=== PATIENT | male | born 1970 | race Caucasian/White ===

== ENCOUNTER 2017-02-08 17:31 | Inpatient (IN) ==
--- NOTE | 2017-02-08 20:05 | Internal Med History&Physical ---
<Diogo Bruce - Last Filed: 02/08/17 23:50> Date of Encounter: 02/08/17 Time of Encounter: 20:04 Assessment and Plan (1) Bacteremia due to methicillin resistant Staphylococcus aureus Current visit: Yes Status: Acute Blood cultures collected 01/29/17 are positive for MRSA Repeat blood cultures pending Echo ordered to r/o endocarditis Continue Vancomycin Patient will need extended course of IV antibiotics with either prolonged hospitalization vs PICC line placement (high abuse potential due to active IVDU) ID consulted (2) Osteomyelitis Current visit: Yes Status: Suspected Suspected Osteomyelitis ESR level > 130 and CRP 114 X-ray left foot reveals soft-tissue swelling without acute or focal bony abnormality. MRI left foot pending Continue Vancomycin Qualifiers: Osteomyelitis type: other acute Osteomyelitis location: foot Laterality: left Qualified Code(s): M86.172 - Other acute osteomyelitis, left ankle and foot (3) Cellulitis of left foot Current visit: No Status: Acute Patient has been on Keflex 500mg PO QID for MRSA cellulitis since 01/29/17 with minimal improvement Cellulitis vs Janeway lesion /septic emboli to LLE from possible endocarditis MRI pending May need I&D with deep wound cultures, NPO diet Contact precautions Continue Vancomycin Tylenol, Ibuprofen, and Morphine prn pain (4) Hepatitis C Current visit: Yes Status: Acute Continue to monitor Qualifiers: Viral hepatitis chronicity: chronic Hepatic coma status: without hepatic coma Qualified Code(s): B18.2 - Chronic viral hepatitis C (5) Tobacco dependence Current visit: Yes Status: Chronic Tobacco cessation discussed Nicotine patch ordered (6) DVT prophylaxis Current visit: Yes Status: Acute No anticoagulation due to possible need for surgery Internal Medicine - H&P: HPI Chief complaint: Left foot infection Admitted From: Home Plans for Post Hospital Care: Home History of present illness: Mr. Montenegro is a 46 year old male with a PMH of MRSA skin infections, Hepatitis C , IVDU, tobacco dependence, chronic low back pain with L4-L5 laminectomy November 2016, and anxiety disorder presented c/o left foot pain and increased redness despite antibiotic treatment. Patient reports initial foot injury on 02/03 after he kicked something with his left foot. He was evaluated at the [place] ED on 01/29/17 and was started on Keflex 500mg PO QID for cellulitis. Blood cultures were collected at that time which are positive for MRSA. Today pain severity is 5/10, radiates up his left leg, is not relieved by Tylenol, and associated with chills and inability to bear weight on his left foot. He has cats at home, works in [employer], and has a remote history of nail piercing his left foot after stepping on a nail in the . Patient denies fever, CP, palpitations, h/o endocarditis, SOB, abd pain, N/V/D/C, cat scratch, spider bites, HIV, left foot drainage, injecting IV drugs into left foot, or previous leg surgery or hardware. In the ED at [place], labs revealed ESR level > 130 and CRP 114. Case was discussed with their hospitalist/ Dr. Nair who indicated need for an MRI to r/o possible osteomyelitis. However, MRIs were only available on Fridays there and decision was made to transfer him to [facility] for orthopedic consultation and MRI. Past Med Surg Social Fam HX - Past Medical History Medical history: hepatitis (Hep C, chronic back pain), other (spinal stenosis) Psychiatric history: anxiety, panic disorder, PTSD - Past Surgical History Surgical History: orthopedic, other (L4-L5 laminectomy November 2016, skin abscess I&D LLQ) - Social History Smoking Status: Current every day smoker Packs per day: 1/2 Smokeless Tobacco Status: No Alcohol use: occasionally Drug use: opiates, marijuana, IV Drug Use Current living situation: Home - Independent, Home - Family History Mother Living Status: Cause of : Cancer Hx Family Cancer: Yes (Colon) Father Living Status: Cause of : Heart attack Hx Family Cardiac Disorders: Yes (Heart attack) Internal Medicine - H&P: Meds Cyclobenzaprine [Flexeril] 10 mg PO TID #21 tablet 01/26/17 [Rx] Meloxicam [Mobic] 7.5 mg PO DAILY #10 tablet 01/26/17 [Rx] Naproxen [Naprosyn] 500 mg PO BID PRN #20 tablet 01/27/17 [Rx] Cephalexin [Keflex] 500 mg PO QID #40 capsule 01/29/17 [Rx] 3 Allergy/AdvReac Type Severity Reaction Status Date / Time Amoxicillin Allergy Difficulty Verified 02/08/17 15:41 Breathing promethazine [From Phenergan] Allergy Agitated Verified 02/08/17 15:41 All Systems PM: A 10-system review of systems was performed and is negative for pertinent findings except as documented above in the HPI. - Constitutional Constitutional: chills, fatigue, no anorexia, no fever(s), no weight gain, no weight loss - EENT Eyes: no change in vision Nose, mouth and throat: no nasal congestion, no sinus pressure - Cardiovascular Cardiovascular ROS IM: no chest pain, no palpitations - Respiratory Respiratory: no cough, no dyspnea, no wheezing - Gastrointestinal Gastrointestinal: no abdominal pain, no diarrhea, no nausea, no vomiting - Genitourinary Genitourinary ROS male: no dysuria, no urinary frequency, no urinary urgency - Musculoskeletal Musculoskeletal ROS IM: arthralgias, back pain, joint swelling, limited range of motion, myalgias, numbness, no tingling - Integumentary Integumentary IM: erythema, new lesions, rash, no skin ulcer - Neurological Neurological ROS: abnormal gait, numbness, radicular pain, no tingling - Psychiatric Psychiatric: anxiety, no depression - Endocrine Endocrine IM: no polydipsia, no polyphagia, no polyuria - Constitutional Vitals: Temp Pulse Resp BP Pulse Ox 98.0 F 86 18 146/91 99 02/08/17 19:32 02/08/17 19:32 02/08/17 19:32 02/08/17 19:32 02/08/17 19:32 General appearance: Present: cooperative, mild distress, A&O X 3, answers questions appropriately - Head Head exam: Present: atraumatic, normal inspection, normocephalic - Eye Eye exam: Present: EOMI, PERRL - ENT ENT exam: Present: mucous membranes moist, normal oropharynx - Neck Neck exam general surgery: Present: normal inspection, supple. Absent: lymphadenopathy, tenderness - Respiratory Respiratory exam: Present: wheezes (mild expiratory wheeze). Absent: accessory muscle use, respiratory distress - Cardiovascular Cardiovascular exam: Absent: RRR, +S1, +S2 - GI/Abdominal GI/Abdominal exam: Present: normal bowel sounds. Absent: firm, no peritoneal signs - Extremities Exam Extremities exam: Present: normal capillary refill, pedal edema, tenderness, warm, radial pulses palpable and symmetrical. Absent: calf tenderness Additional comments: Left foot 10cm x 8cm area of erythema on plantar arch with palpable abscess and outer border marked with skin marker, 3cm x 2 cm erythema proximal to 3rd & 4th toe web space, edema, tenderness to ROM, copartments soft, no ulceration or drainage - Back Exam Back exam: Present: normal inspection. Absent: tenderness - Neurological Exam Neurological exam: Present: alert, oriented X3, no focal deficits. Absent: speech deficit - Psychiatric Psychiatric exam: Present: anxious, normal affect - Skin Additional comments: Left foot 10cm x 8cm area of erythema on plantar arch with palpable abscess and outer border marked with skin marker, 3cm x 2 cm erythema proximal to 3rd & 4th toe web space with possible osler node, edema, tenderness to ROM, compartments soft, no ulceration or drainage, no uncal hemorhage or Janeway lesions Internal Med - H&P Results - Labs Labs: Result diagrams: 02/08/17 16:20 02/08/17 16:20 Lab Results 02/08/17 02/08/17 02/08/17 Range/Units 16:20 16:20 16:20 WBC 6.4 (4.3-11.1) K/mcL RBC 4.34 (4.19-5.50) M/mcL Hgb 14.2 (12.9-16.9) g/dL Hct 39.7 (37.5-50.1) % MCV 91.5 (83.0-100.0) fL MCH 32.7 (28.0-33.3) pg MCHC 35.8 H (31.6-35.5) g/dL RDW 13.5 (11.5-14.5) % Plt Count 198 (140-400) K/mcL MPV 9.1 L (9.4-12.4) fL Immature Gran % 0.5 (0-4) % Seg Neutrophils % 72.3 % Lymphocytes % 17.2 % Monocytes % 9.0 % Eosinophils % 0.5 % Basophils % 0.5 % Neutrophils # 4.6 (1.6-8.9) K/mcL Lymphocytes # 1.1 (0.6-4.6) K/mcL Monocytes # 0.6 (0.0-1.3) K/mcL Eosinophils # 0.0 (0.0-0.6) K/mcL Basophils # 0.0 (0.0-0.2) K/mcL Sodium 134 L (136-145) mEq/L Potassium 3.9 (3.5-4.5) mEq/L Chloride 102 (98-109) mEq/L Carbon Dioxide 23 (19-29) mEq/L BUN 13 (8-26) mg/dL Creatinine 0.71 L (0.72-1.25) mg/dL Est GFR ( Amer) > 60 (> 60) Est GFR (Non-Af Amer) > 60 (> 60) BUN/Creatinine Ratio 18 (6-26) Glucose 122 H (70-99) mg/dL Calculated Osmolality 279 L (280-300) Lactic Acid 1.6 (0.5-2.2) mmol/L Calcium 9.3 (8.6-10.8) mg/dL Total Bilirubin 0.6 (0.2-1.2) mg/dL Direct Bilirubin 0.3 (0.0-0.5) mg/dL Indirect Bilirubin 0.3 (0.0-1.2) mg/dL AST 99 H (5-34) Units/L ALT 166 H (0-55) Units/L Alkaline Phosphatase 118 (38-126) Units/L Serum Total Protein 8.0 (6.0-8.3) g/dL Albumin 2.6 L (3.5-5.0) g/dL Globulin 5.4 H (2.4-3.5) g/dL Albumin/Globulin Ratio 0.5 L (1.1-2.2) - Impressions XR/XR foot 3V LT IMPRESSION: Soft-tissue swelling without acute or focal bony abnormality. D/ / Andria Sanchez Cha, MD / Andria Sanchez Cha, MD Interpreting Provider: Andria Sanchez Cha, MD <Maricel Rivas - Last Filed: 02/09/17 02:20> Date of Encounter: 02/09/17 Internal Medicine - H&P: HPI History of present illness: Mr. Montenegro is a 46 year old male All Systems PM: A 10-system review of systems was performed and is negative for pertinent findings except as documented above in the HPI. - Constitutional Vitals: Temp Pulse Resp BP Pulse Ox 98.2 F 108 19 145/88 99 02/08/17 23:29 02/08/17 23:29 02/08/17 23:29 02/08/17 23:29 02/08/17 23:29 Internal Med - H&P Results - Labs CBC & Chem 7: 02/09/17 00:26 02/09/17 00:26 Labs: Short CBC 02/09/17 Range/Units 00:26 WBC 6.1 (4.3-11.1) K/mcL Hgb 12.4 L D (12.9-16.9) g/dL Hct 36.6 L (37.5-50.1) % Plt Count 206 (140-400) K/mcL Neutrophils # 4.3 (1.6-8.9) K/mcL BMP 02/09/17 00:26 Sodium 136 Potassium 3.5 Chloride 104 Carbon Dioxide 24 BUN 12 Creatinine 0.78 Glucose 161 H Calcium 8.4 L - Attending Attestation I have seen and examined the patient independently. I have discussed with resident Dr. Bruce regarding the management plan. Agree with the documentation. Patient has left foot cellulitis, bacteremia, history of IV drug abuse. Continue vancomycin at this point. Need to rule out endocarditis and osteomyelitis
[2017-02-08] MEDS ORDERED: 0.9 % Sodium Chloride 1,000 ML IVC ONE (20:47)
[2017-02-08] MEDS ORDERED: Vancomycin (wt based) 1,000 MG VIAL IVPB SCH (21:00)
[2017-02-08] MEDS ORDERED: Naloxone 0.4 MG/ML INJ IVP PRN (21:03)
[2017-02-08] MEDS ORDERED: Acetaminophen 325 MG TABLET PO PRN (21:03)
[2017-02-08] MEDS ORDERED: Ondansetron 4 MG/2 ML VIAL IVP PRN (21:03)
[2017-02-08] MEDS: Nicotine 14 MG PATCH.TD24 TD SCH (21:44)
[2017-02-08] MEDS: *HR* Morphine 2 MG/ML SYRINGE IVP PRN (21:44)
[2017-02-08] MEDS ORDERED: Ipratropium/Albuterol Neb 3 ML IH PRN (21:59)
[2017-02-08] MEDS: Vancomycin 1,250 MG in D5% in Water 250 ML IVPB SCH (23:15)
[2017-02-08] MEDS: 0.9 % Sodium Chloride 1,000 ML IVC SCH (23:15)
[2017-02-09] MEDS: Ibuprofen 400 MG TABLET PO SCH ×4 (00:43→18:41)
[2017-02-09 00:52] LABS: Basophils % 0.3 %; Eosinophils # 0.1 K/mcL (0.0-0.6); Eosinophils % 1.3 %; Hematocrit 36.6 % (37.5-50.1); Hemoglobin 12.4 g/dL (12.9-16.9); Immature Granulocytes % 0.5 % (0-4); Lymphocytes # 1.3 K/mcL (0.6-4.6); Lymphocytes % 20.9 %; Mean Corpuscular HGB Conc 33.9 g/dL (31.6-35.5); Mean Corpuscular Hemoglobin 31.5 pg (28.0-33.3); Mean Corpuscular Volume 92.9 fL (83.0-100.0); Mean Platelet Volume 9.3 fL (9.4-12.4); Monocytes # 0.4 K/mcL (0.0-1.3); Neutrophils # 4.3 K/mcL (1.6-8.9); Platelet Count 206 K/mcL (140-400); Red Blood Count 3.94 M/mcL (4.19-5.50); Red Cell Distribution Width 13.3 % (11.5-14.5)
[2017-02-09 00:54] LABS: INR 1.3; Prothrombin Time 14.2 Seconds (9.4-12.1)
[2017-02-09 00:57] LABS: Activated Partial Thrombo Time 27.7 Seconds (26.0-36.0)
[2017-02-09 01:02] LABS: BUN/Creatinine Ratio 15 (6-26); Blood Urea Nitrogen 12 mg/dL (8-26); Calcium 8.4 mg/dL (8.6-10.8); Carbon Dioxide 24 mEq/L (19-29); Chloride 104 mEq/L (98-109); Glucose 161 mg/dL (70-99); Osmolality,Calculated 285 (280-300); Potassium 3.5 mEq/L (3.5-4.5); Sodium 136 mEq/L (136-145); eGFR For African Americans > 60 (> 60); eGFR For Non-African Americans > 60 (> 60)
[2017-02-09] MEDS: *HR* Morphine 2 MG/ML SYRINGE IVP PRN ×5 (03:03→23:07)
[2017-02-09] MEDS: Famotidine 20 MG/2 ML VIAL IVP SCH ×2 (06:21→18:41)
[2017-02-09] MEDS: *HR* Heparin 5,000 UNIT/ML VIAL SQ SCH ×2 (06:22→18:41)
[2017-02-09] MEDS: 0.9 % Sodium Chloride 1,000 ML IVC SCH (08:50)
[2017-02-09] MEDS: Nicotine 14 MG PATCH.TD24 TD SCH (09:02)
[2017-02-09] MEDS: Vancomycin 1,250 MG in D5% in Water 250 ML IVPB SCH ×2 (10:29→22:22)
--- NOTE | 2017-02-09 13:56 | Electrocardiograph Report ---
[address] [address] Test Date: 2017-02-09 Pat Name: Ignacio Montenegro Department: 114 Room: [facility] Gender: M Ekg Tech: [id number] : 1970 Requested By: Diogo Bruce Order Number: [id number] Reading MD: Magy Ahmadi Measurements Intervals [place] Rate: 89 P: 47 CO: 148 QRS: 58 QRSD: 93 T: 38 QT: 347 QTc: 394 Interpretive Statements SINUS RHYTHM NONSPECIFIC ST ABNORMALITIES Electronically Signed On 02-09-2017 13:54:12 EDT by Magy Ahmadi
--- NOTE | 2017-02-09 14:08 | Infectious Disease Consult ---
Date of Encounter: 02/09/17 Time of Encounter: 14:02 Assessment and Plan (1) Bacteremia due to methicillin resistant Staphylococcus aureus Status: Acute Assessment and plan: Causative organism: MRSA. Source unclear: IVDU vs. left foot cellulitis vs. recent laminectomy. Blood cultures drawn 01/29/17 were positive 1/2 sets for MRSA. Uncomplicated at this point. The patient has no indwelling hardware. He has one major and one minor Modified Snow's criteria. His left foot findings are concerning for possible Osler's node, but will await foot MRI to see if there is an underlying abscess to explain his symptoms. Repeat blood cultures drawn 02/08/17 are pending x 2 sets. TTE completed this morning is pending. If negative, the patient will need a [place] prior to discharge. Continue Vancomycin IV. Pharmacy to dose. Goal trough ~15. Duration of treatment depends on the clinical picture. Monitor renal function and for drug toxicity. (2) Left foot pain Status: Acute Assessment and plan: Etiology unclear: cellulitis/infectious etiology vs. Osler's node. MRI of the left foot pending. Podiatry consulted. Await recommendations. Continue pain management as outlined by the primary team. (3) IV drug user Status: Acute Assessment and plan: Reports last use of IV heroine about three weeks ago. Known Hep C positive. Check HIV status. Withdraw management per the primary team recommendations. (4) Hepatitis C Status: Acute Qualifiers: Viral hepatitis chronicity: chronic Hepatic coma status: without hepatic coma Qualified Code(s): B18.2 - Chronic viral hepatitis C (5) Tobacco dependence Status: Chronic Infectious Disease HPI - Data of Consult Patient: new to practice Consult date: 02/09/17 Requesting Physician: Venice Richardson MD Primary Care Provider: PCP NONE - Consult Narrative Reason for consult: MRSA bacteremia History of present illness: Mr. Montenegro is a 46 year old male past medical history hepatitis C, chronic back pain status post lumbar laminectomy in November 2016, anxiety disorder, panic disorder, PTSD. The patient was admitted the hospital February 08 for left foot cellulitis and MRSA bacteremia. We are consulted February 09 for further recommendations regarding MRSA bacteremia. She is a 46-year-old male with past medical history as stated above. The patient states for the past 2 weeks he has had left foot pain, redness, and swelling. He states his been seen multiple times by the emergency department at [facility] and was told there was nothing wrong. Most recently, the patient was seen on January 29 and was put on a ten-day course of oral Keflex. He states that the redness has improved somewhat, but he still continues to have pain and redness and swelling to the medial plantar aspect of the left foot. Arrival to the ER on the day of admission, the patient was afebrile, but was tachycardic. Laboratory studies revealed a normal white blood cell count with ESR greater than 130. Lactic acid is normal. AST and ALT are mildly elevated with a normal alkaline phosphatase. Urinalysis was obtained that was negative. Urine drug screen was positive for benzodiazepines. A left foot x-ray was completed that showed soft tissue swelling. It was noted that patient had blood cultures drawn back on January 29 that were +1 out of 2 sets for MRSA. The patient was sent to be transferred here for further evaluation. [place], the patient has remained afebrile and hemodynamically stable. Channel Marketing Coordinator been consulted and we are awaiting the recommendations. Repeat blood cultures have been obtained and are pending. The patient had a left foot MRI completed this morning and the radiologist reading is pending. Her seemed a one- time dose of IV Levaquin. He continues to receive IV vancomycin infusions. We' ve been asked to evaluate and make further recommendations. During my exam today, the patient endorses a history as stated above. AIDS that when he originally presented for this left foot pain on January, he had sustained a possible seizure and ended up taking the wall. He states he does not have a history of seizures and he is unsure what happened. He states he had been experiencing some fevers and flulike symptoms on that day. He hasn't felt well overall for the past couple of weeks. He denies any fevers or chills, but does report profusely sweating. He states he hasn't had much of an appetite. He complains of chronic headaches, neck pain, and back pain. He also reports the recurrence of a sebaceous cyst to his scalp. He does tell me that he has had and not to his posterior lateral neck intermittently for several years that seems to be back at this time. He denies any chest pain, shortness of breath, or cough. He denies any nausea, vomiting, diarrhea, constipation. He denies abdominal pain or urinary complaints. He complains of severe pain in the left foot that makes it difficult for him to ambulate pain in any of his other joints or extremities except as mentioned above. The patient lives at home with his girlfriend and roommate. He is not currently employed. The patient is a [employer] . He is admitted to using IV heroin 3 weeks ago to help with his chronic pain and reports that he has shared needles with others. CC: Venice Richardson MD Past Med Surg Social Fam HX - Past Medical History Attestation: Yes The following information was validated with the patient. Source: patient, old records reviewed, nursing notes reviewed Medical history: hepatitis (Hep C, chronic back pain), other (spinal stenosis) Psychiatric history: anxiety, panic disorder, PTSD - Past Surgical History Surgical History: orthopedic, other (L4-L5 laminectomy November 2016, skin abscess I&D LLQ) - Social History Smoking Status: Current every day smoker Packs per day: 1/2 Smokeless Tobacco Status: No Alcohol use: occasionally Drug use: opiates, marijuana, IV Drug Use (IV heroine use 3 weeks ago) Occupational status: unemployed Current living situation: Home - Independent Activity Level: Independent ambulation Recent Out of Country Travel Within the Last 8 Weeks: No Exposure or Possible Exposure to Illness During Travel: No - Family History Mother Living Status: Cause of : Cancer Hx Family Cancer: Yes (Colon) Father Living Status: Cause of : Heart attack Hx Family Cardiac Disorders: Yes (Heart attack) Infectious Disease-CN:Meds Cyclobenzaprine [Flexeril] 10 mg PO TID #21 tablet 01/26/17 [Rx] Meloxicam [Mobic] 7.5 mg PO DAILY #10 tablet 01/26/17 [Rx] Naproxen [Naprosyn] 500 mg PO BID PRN #20 tablet 01/27/17 [Rx] 3 Allergy/AdvReac Type Severity Reaction Status Date / Time Amoxicillin Allergy Difficulty Verified 02/08/17 15:41 Breathing promethazine [From Phenergan] Allergy Agitated Verified 02/08/17 15:41 All systems: reviewed and no additional remarkable complaints except as stated Exam - Constitutional Vitals: Temp Pulse Resp BP Pulse Ox 97.6 F 77 15 127/83 97 02/09/17 06:49 02/09/17 06:49 02/09/17 06:49 02/09/17 06:49 02/09/17 06:49 General appearance: average body habitus, cooperative, no acute distress - Head Head exam: Present: atraumatic, normal inspection, normocephalic Additional comments: Sebaceous cyst noted to the occipital region, non-fluctuant, non-tender. No erythema or drainage noted. - Eye Eye exam: Present: EOMI, normal appearance, PERRL Pupils: Present: normal accommodation Additional comments: No subconjunctival hemorrhage noted. - ENT ENT exam: Present: mucous membranes moist - Neck Neck exam: Present: normal inspection - Respiratory Respiratory exam: Present: CTAB. Absent: rales, respiratory distress, rhonchi, wheezes - Cardiovascular Cardiovascular exam: Present: RRR, +S1, +S2 - GI/Abdominal GI/Abdominal exam: Present: normal bowel sounds, soft. Absent: distended, tenderness - Extremities Exam Extremities exam: Present: pedal edema (left foot, 1+, non-pitting), tenderness (Left foot) - Expanded Lower Extremity Exam 1 - Erythematous, edematous, tender - Back Exam Back exam: Present: normal inspection, vertebral tenderness (Lumbar spine). Absent: paraspinal tenderness - Neurological Exam Neurological exam: Present: alert, oriented X3, no focal deficits - Psychiatric Psychiatric exam: Present: normal affect, normal mood - Skin Skin exam: Present: dry, intact, normal color, warm Additional comments: Left foot findings concerning for Osler's node. Infectious Disease CN: Results - Labs CBC & Chem 7: 02/09/17 00:26 02/09/17 00:26 Cultures: 01/29/17 - Blood culture positive 1/2 MRSA Consult Discharge Plan - Plan Referrals: NONE,PCP [Primary Care Provider] -
--- NOTE | 2017-02-09 16:37 | Internal Med Progress Note ---
Date of Encounter: 02/09/17 Time of Encounter: 14:30 - Assessment and plan (1) Bacteremia due to methicillin resistant Staphylococcus aureus Current Visit: Yes Status: Acute Assessment and plan: One out of 2 blood cultures drawn on January 29 grew MRSA. Patient has history of IV drug abuse with recent use 2-3 weeks ago. Likely source IV drug use. Continue IV vancomycin. ID consult. Check 2D Echocardiogram. (2) Cellulitis Current Visit: Yes Status: Acute Assessment and plan: Left plantar foot tenderness and edema. No open wounds or skin breakdown. One out of 2 blood cultures drawn on January 29 grew MRSA. 2 sets of blood cultures from February 08 pending. Continue IV vancomycin. Podiatry consult for possible incision and drainage. Check left foot MRI to rule out osteomyelitis. Qualifiers: Site of cellulitis: extremity Site of cellulitis of extremity: lower extremity Laterality: left Qualified Code(s): L03.116 - Cellulitis of left lower limb (3) Hepatitis C Current Visit: Yes Status: Chronic Qualifiers: Viral hepatitis chronicity: chronic Hepatic coma status: without hepatic coma Qualified Code(s): B18.2 - Chronic viral hepatitis C (4) Tobacco dependence Current Visit: Yes Status: Chronic Assessment and plan: Nicotine transdermal patch PRN. (5) IV drug user Current Visit: Yes Status: Chronic Assessment and plan: Monitor for withdrawal. Cautious use of IV opiates; PRN Oxycodone and NSAIDs for pain control; Patient will need placement if requires IV antibiotics. - Subjective Interval history: Reports left heel/foot pain. No fever/chills, dyspnea, nausea/vomiting. - Constitutional Vitals: Temp Pulse Resp BP Pulse Ox 97.6 F 77 15 127/83 97 02/09/17 06:49 02/09/17 06:49 02/09/17 06:49 02/09/17 06:49 02/09/17 06:49 General appearance: Present: cooperative, A&O X 3, answers questions appropriately - Respiratory Respiratory exam: Present: CTAB. Absent: accessory muscle use, rales, rhonchi, wheezes - Cardiovascular Cardiovascular exam: Present: RRR, +S1, +S2. Absent: diastolic murmur, gallop, rubs, systolic murmur - GI/Abdominal GI/Abdominal exam: Present: normal bowel sounds, soft, no peritoneal signs. Absent: distended, tenderness - Extremities Exam Extremities exam: Present: full ROM, warm, radial pulses palpable and symmetrical. Absent: calf tenderness, cyanotic, pedal edema Additional comments: Left foot- distal plantar surface with dusky tender edema extending over the ball of forefoot; no open ulcers; - Neurological Exam Neurological exam: Present: CN II-XII intact, oriented X3, no focal deficits. Absent: pronater drift, facial droop, speech deficit Internal Medicine: Result - Labs CBC & Chem 7: 02/09/17 00:26 02/09/17 00:26 Labs: Short CBC 02/09/17 Range/Units 00:26 WBC 6.1 (4.3-11.1) K/mcL Hgb 12.4 L D (12.9-16.9) g/dL Hct 36.6 L (37.5-50.1) % Plt Count 206 (140-400) K/mcL Neutrophils # 4.3 (1.6-8.9) K/mcL BMP 02/09/17 00:26 Sodium 136 Potassium 3.5 Chloride 104 Carbon Dioxide 24 BUN 12 Creatinine 0.78 Glucose 161 H Calcium 8.4 L - ABG Interpretation ABG results: PT/INR, D-dimer PT 14.2 Seconds (9.4-12.1) H 02/09/17 00:26 - Impressions Impressions Foot MRI 02/08/17 21:06 IMPRESSION: 1. Extensive, diffuse soft tissue edema present, along with soft tissue enhancement following gadolinium administration, consistent with the history of cellulitis. 2. Intense myositis with severe tenosynovitis involving the flexor digitorum brevis and quadratus plantae. Tenosynovitis extends for approximately 14 cm, to the level of the metatarsal heads. Infectious tenosynovitis with intramuscular abscess of the flexor digitorum brevis/quadratus plantae is suspected in this clinical setting. 3. Severe tenosynovitis of the peroneus longus and peroneus brevis. Cannot exclude infectious tenosynovitis. Short segment longitudinal split tear present involving the juxta malleolar segment of the peroneus brevis. 4. Focal tenosynovitis involving the 3rd extensor tendon complex at the level of the 3rd proximal phalanx. 5. Nonspecific faint marrow edema involving the 4th and 5th metatarsal bases, the cuboid, and the calcaneus. The pattern is not suggestive of osteomyelitis. Hyperemia or evolving stress injury is considered more likely. D/ / 02/09/2017 10:45:53 Diogo Mckeon MD / angie Interpreting Provider: Diogo Mckeon MD Echocardiogram 02/09/17 21:05 Impressions: LVEF 60-65%. Normal left ventricular diastolic function. Normal right ventricular structure and function. No significant valvular dysfunction. No pulmonary hypertension. No identifiable vegetation on this study. Left Ventricular Wall Motion: Rest Echo Findings All wall segments showed normal motion. Findings: Study Quality * Technically adequate exam. ECG Findings * Normal sinus rhythm. Left Ventricle * LVEF 60-65%. * Normal LV chamber size, wall thickness and function. * Normal left ventricular diastolic function. Right Ventricle * Normal right ventricular structure and function. Left Atrium * Normal left atrial size. Right Atrium * Normal right atrial size. Aortic Valve * No aortic regurgitation. * Trileaflet aortic valve. * Normal aortic valve structure. * No aortic stenosis. Mitral Valve * Normal mitral valve structure. * No mitral regurgitation. * No mitral stenosis. Tricuspid Valve * Normal tricuspid valve structure. * Estimated RA pressure is 3 mmHg. * Estimated RVSP is 17 mmHg. * No pulmonary hypertension. Pulmonic Valve * Pulmonic valve is not well visualized. * No pulmonic stenosis. * No pulmonic regurgitation. Pulmonary Artery * Pulmonary artery not well visualized. Aorta * Normally sized aortic root. Pericardium * There is no pericardial effusion present. Interatrial Septum * No evidence of PFO by color Doppler. IVC * The IVC is not dilated. Consult Discharge Plan - Plan Referrals: NONE,PCP [Primary Care Provider] -
--- NOTE | 2017-02-09 19:24 | Anesthesia Evaluation PreOp ---
Date of Encounter: 02/09/17 Time of Encounter: 19:21 - Past History Planned Operation: I&D Left Foot Cardiac History: Denies any Significant Hx Pulmonary History: Smoker, Pack/yr (1/2 ppd) CARD FIXER History: Other ( anxiety, panic disorder, PTSD, Spinal stenosis) Other Medical History: Hepatic (Hep C), Other (Osteomyolitis, Cellulitis Left Foot,) Anesthesia History: No Prior Anesthetic Complications, Past Anesthesia ( orthopedic, other (L4-L5 laminectomy November 2016, skin abscess I&D LLQ)) Alcohol Use: occasionally Drug use: opiates, marijuana, IV Drug Use (IV heroine use 3 weeks ago) Medications and Allergies Cyclobenzaprine [Flexeril] 10 mg PO TID #21 tablet 01/26/17 [Rx] Meloxicam [Mobic] 7.5 mg PO DAILY #10 tablet 01/26/17 [Rx] Naproxen [Naprosyn] 500 mg PO BID PRN #20 tablet 01/27/17 [Rx] 3 Allergy/AdvReac Type Severity Reaction Status Date / Time Amoxicillin Allergy Difficulty Verified 02/08/17 15:41 Breathing promethazine [From Phenergan] Allergy Agitated Verified 02/08/17 15:41 - Meds/Allergy Pre-op Review Medications Reviewed: Yes Allergies Reviewed: Yes Beta Blockers on Current Med List: No Anesthesia Results - Labs 02/09/17 00:26 02/09/17 00:26 Echocardiogram Name: Ignacio Montenegro Date of Study: 02/09/2017 Date: 1970 Ht: 72.0 EV/EV echocardiogram Impressions: LVEF 60-65%. Normal left ventricular diastolic function. Normal right ventricular structure and function. No significant valvular dysfunction. No pulmonary hypertension. No identifiable vegetation on this study. Anesthesia Exam O2 Sat Height 1.83 m Weight 82.8 kg O2 Sat by Pulse Oximetry 97 O2 Sat by Pulse Oximetry 97 O2 Sat by Pulse Oximetry 100 O2 Sat by Pulse Oximetry 99 O2 Sat by Pulse Oximetry 99 Vital Signs Temp Pulse Resp BP Pulse Ox 98.0 F 86 18 146/91 99 02/08/17 19:32 02/08/17 19:32 02/08/17 19:32 02/08/17 19:32 02/08/17 19:32 Vital Signs/O2 Sat, Most Current Temp Pulse Resp BP Pulse Ox 97.5 F L 77 18 120/77 97 02/09/17 19:04 02/09/17 19:04 02/09/17 19:04 02/09/17 19:04 02/09/17 19:04 Height: 6' Weight: 182# - HEENT Pupil (Motor): Pupils equal, EOMI Mallampati: II Teeth: Normal Oral Opening: Greater than 3 - CARD FIXER LOC: Oriented CARD FIXER Motor: Normal RUE, Normal LUE, Normal RLE, Normal LLE, Normal Face CARD FIXER Sensory: Normal: RUE, LUE, RLE, LLE, Face - Cardiac Rhythm: Regular Murmur: None JVD: No Carotid Bruit: No - Pulmonary Breath Sounds: bilateral Clear Respiratory Effort: Symmetrical Anesthesia Assess/Plan ASA Score: 3 Modified Keerthi Scale for Level of Consciousness: Cooperative, oriented, and tranquil Anesthetic Plan: General Autologous Blood: Yes Monitoring Plan: Standard Monitors Recovery Plan: PACU
[2017-02-09] MEDS: *HR* OxyCODONE/APAP 5/325 TABLET PO PRN (20:04)
[2017-02-09] MEDS ORDERED: 0.9 % Sodium Chloride 1,000 ML IVC SCH (20:30)
[2017-02-10] MEDS: Ibuprofen 400 MG TABLET PO SCH ×4 (00:10→23:55)
[2017-02-10] MEDS: *HR* OxyCODONE/APAP 5/325 TABLET PO PRN ×3 (03:35→20:27)
[2017-02-10] MEDS: *HR* Morphine 2 MG/ML SYRINGE IVP PRN ×4 (05:16→22:04)
[2017-02-10] MEDS: *HR* Heparin 5,000 UNIT/ML VIAL SQ SCH ×2 (05:16→16:45)
[2017-02-10] MEDS: Famotidine 20 MG/2 ML VIAL IVP SCH ×2 (05:17→16:45)
[2017-02-10] MEDS: Nicotine 14 MG PATCH.TD24 TD SCH (09:13)
[2017-02-10 10:20] LABS: Basophils % 0.8 %; Eosinophils # 0.1 K/mcL (0.0-0.6); Eosinophils % 1.9 %; Hematocrit 36.3 % (37.5-50.1); Hemoglobin 12.4 g/dL (12.9-16.9); Immature Granulocytes % 0.5 % (0-4); Lymphocytes # 1.3 K/mcL (0.6-4.6); Lymphocytes % 33.6 %; Mean Corpuscular HGB Conc 34.2 g/dL (31.6-35.5); Mean Corpuscular Hemoglobin 32.4 pg (28.0-33.3); Mean Corpuscular Volume 94.8 fL (83.0-100.0); Mean Platelet Volume 9.4 fL (9.4-12.4); Monocytes # 0.3 K/mcL (0.0-1.3); Monocytes % 7.1 %; Neutrophils # 2.1 K/mcL (1.6-8.9); Platelet Count 193 K/mcL (140-400); Red Blood Count 3.83 M/mcL (4.19-5.50); Red Cell Distribution Width 13.7 % (11.5-14.5); Segmented Neutrophils % 56.1 %
[2017-02-10 10:33] LABS: BUN/Creatinine Ratio 11 (6-26); Blood Urea Nitrogen 8 mg/dL (8-26); Carbon Dioxide 28 mEq/L (19-29); Chloride 108 mEq/L (98-109); Glucose 87 mg/dL (70-99); Osmolality,Calculated 288 (280-300); Potassium 4.2 mEq/L (3.5-4.5); Sodium 140 mEq/L (136-145); eGFR For African Americans > 60 (> 60); eGFR For Non-African Americans > 60 (> 60)
[2017-02-10] MEDS ORDERED: Bupivacaine/Clonidine Syringe 1 EACH SYRINGE ONE (11:46)
[2017-02-10] MEDS ORDERED: *HR* FentaNYL (PF) 100 MCG/2 ML VIAL ONE ×3 (11:53→13:05)
[2017-02-10] MEDS ORDERED: *HR* Midazolam HCl 2 MG/2 ML VIAL ONE (11:54)
[2017-02-10] MEDS ORDERED: *HR* Propofol 200 MG/20 ML VIAL IVP ONE (11:54)
[2017-02-10] MEDS ORDERED: Lidocaine -MPF 2% 2 ML VIAL ONE (11:55)
[2017-02-10] MEDS ORDERED: *HR* Succinylcholine 200 MG/10 ML VIAL IVP ONE (11:56)
[2017-02-10] MEDS ORDERED: *HR* Rocuronium Bromide 50 MG/5 ML VIAL ONE (12:12)
[2017-02-10] MEDS ORDERED: Lacri-Lube 3.5 GM TUBE ONE (12:24)
[2017-02-10] MEDS ORDERED: Ondansetron 4 MG/2 ML VIAL IVP ONE ×2 (12:40→14:53)
[2017-02-10] MEDS ORDERED: *HR* HYDROmorphone 2 MG/ML SYRINGE ONE (13:26)
[2017-02-10] MEDS ORDERED: *HR* HYDROmorphone (PF) 1 MG/ML SYRINGE ONE ×2 (13:37→13:53)
--- NOTE | 2017-02-10 13:40 | Orthopedic Operative Note ---
Date of procedure: 02/10/17 Pre-op diagnosis: Abscess left foot Post-op diagnosis: same Procedure: 02/10/17 13:33 #1: Incision and drainage and debridement multiple areas left foot #2 placement of wound VAC Implants: None Complications: None Anesthesia: GETA Local Anesthetics: 0.25% Sensorcaine HCL SubQ (cc) Surgeon: Martin Shields Estimated blood loss (cc): 20 Tourniquet Time (Minutes): 33 Specimen: Cultures left foot Condition: stable Disposition: PACU Procedure in Detail: 02/10/17 13:34 Detail summary of procedure: Patient brought to the surgical suite. A signed and procedure performed. Patient was then transferred to the surgical table and positioned properly safely securely. Left foot elevated on a foam block. Patient underwent smooth induction of general endotracheal anesthesia achieved without difficulty. Medial aspect of the left ankle was prepped with alcohol 3 times the posterior tibial nerve block carried out without difficulty. A complete roll of cast padding placed above the malleolar line followed by an application of an ankle tourniquet. Left foot prepped and draped in usual sterile manner. Surgical timeout taken. A large fluctuant mass was noted in the medial aspect of the left foot along the medial longitudinal arch approximately 6 cm in diameter. MRI confirmed infectious tenosynovitis involving the flexor brevis muscle belly as well as the quadratus plantae and the associated tendons including the flexor tendons into the plantar aspect of the distal foot at the level just proximal to the MTPJ #3. The incision began approximately 12 cm, beginning in the medial aspect of the plantar medial arch and brought distally laterally and then toward the plantar aspect of the third MTP. Immediate purulent drainage was expressed. It was then cultured aerobic and anaerobic. Sharp dissection was continued down to the plantar fascia. Purulent drainage/pus was noted to emanate from beneath the plantar fascia. The plantar fascia was then incised from distal to proximal exposing the central space where clot/ seropurulent drainage was discovered and drained.. Fortunately the muscle belly of the flexor hallucis as well as the flexor brevis was found to be intact without evidence of necrosis. Fortunately the tendons were also intact involving the flexor digitorum longus and brevis. The space/abscess was noted to progress proximally 6 cm and distally 6 cm from the center of the wound. The abscess was noted to be beneath the plantar fascia. After aggressive irrigation with a surgilav irrigation systemand a ultrasonic Misonix debrider was then used to debride the wound completely from distal to proximal and medial, lateral. The tourniquet was released and immediate hyperemic response was noted. Hemostasis was achieved with judicious use of a Bovie. The wound was thoroughly irrigated again with the bulb syringe. The foot and leg were then elevated and tourniquet reinflated. The wound was then again irrigated thoroughly with saline. Skin sutures were placed proximally 5 and 4 distally. A wound VAC was then placed beneath the plantar fascia proximally and distally and found to function properly once employed. Tourniquet was released and immediate hyperemic response was noted to all toes. Prior to application of the wound VAC hemostasis was achieved. Estimated blood loss less than 20 mL complications encountered none patient was then extubated and sent to PACU in good condition with vital signs stable. 02/15/17 08:36
[2017-02-10] MEDS: *HR* HYDROmorphone (PF) 1 MG/ML SYRINGE IVP PRN ×3 (13:45→13:55)
[2017-02-10] MEDS ORDERED: Vancomycin 1,750 MG in D5% in Water 500 ML IVPB SCH (14:00)
[2017-02-10] MEDS ORDERED: *HR* Labetalol 20 MG/4 ML SYRINGE IVP ONE (14:08)
--- NOTE | 2017-02-10 14:41 | Anesthesia Evaluation Post Op ---
Date of Encounter: 02/10/17 Time of Encounter: 14:39 - Vital Signs Vital Signs: BP 130/80, HR 76, SpO2 100, rr 16, T 98.0 - Lungs Lungs: Clear Ascult./Percussion - Airway Airway: Non-obstructed - Cardiovascular Regular Rate - Mental Status Mental Status: Alert & Oriented, Answers Appropriately - Pain Pain Scale: 0 Pain Scale used: Numeric (1 - 10) - Nausea Vomiting Nausea Vomiting: Not Present - Hydration Hydration: Tolerates oral liquids - Discharge PostOp Status: Transfer Patient to floor
[2017-02-10] MEDS ORDERED: Naloxone 0.4 MG/ML INJ IVP PRN (14:53)
[2017-02-10] MEDS ORDERED: Acetaminophen 325 MG TABLET PO PRN (14:53)
[2017-02-10] MEDS ORDERED: *HR* HYDROmorphone (PF) 1 MG/ML SYRINGE IVP PRN (14:53)
[2017-02-10] MEDS ORDERED: Ipratropium/Albuterol Neb 3 ML IH PRN (14:53)
[2017-02-10] MEDS ORDERED: Ondansetron 4 MG/2 ML VIAL IVP PRN (14:53)
--- NOTE | 2017-02-10 16:04 | Infectious Disease Progress No ---
Date of Encounter: 02/10/17 Time of Encounter: 16:02 - Assessment and Plan (1) Bacteremia due to methicillin resistant Staphylococcus aureus Current Visit: Yes Status: Acute Causative organism: MRSA. Source unclear: IVDU vs. left foot cellulitis vs. recent laminectomy. Blood cultures drawn 01/29/17 were positive 1/2 sets for MRSA. Uncomplicated at this point. The patient has no indwelling hardware. He has one major and one minor Modified Snow's criteria. Repeat blood cultures drawn 02/08/17 are NGTD x 2 sets. TTE completed 02/09/17 is negative for valvular vegetations. The patient will need a NE[place] prior to discharge. Continue Vancomycin IV. Pharmacy to dose. Goal trough ~15. Duration of treatment depends on the clinical picture. Monitor renal function and for drug toxicity. (2) Foot abscess, left Current Visit: Yes Status: Acute Location: Left medial foot. Causative organism unclear, but likely MRSA given blood culture results. MRI of the left foot showed extensive diffuse soft tissue edema consistent with cellulitis. Intense myositis with severe tenosynovitis in multiple areas were noted. Additionally, there were findings concerning for abscess as well. Podiatry was consulted. States post left foot I & D 02/10/[address] Shields. Operative report reviewed. Extensive infection noted, but no evidence of bone involvement. The pus did penetrate the plantar fascia. Continue Vancomycin IV. Pharmacy to dose. Goal trough ~15. Duration of treatment depends on the clinical picture, but likely 4 weeks of IV antibiotics. marketing services vice president to assist with discharge planning. Recommend ECF placement with patient's history of IVDU. (3) Left foot pain Current Visit: Yes Status: Acute Secondary to left foot abscess. Status post I & D 02/10/[address] Shields. Improved post-operatively. Pain management per the primary and podiatry teams. (4) IV drug user Current Visit: Yes Status: Chronic Reports last use of IV heroine about three weeks ago. Known Hep C positive. HIV negative. Withdraw management per the primary team recommendations. (5) Hepatitis C Current Visit: Yes Status: Chronic Qualifiers: Viral hepatitis chronicity: chronic Hepatic coma status: without hepatic coma Qualified Code(s): B18.2 - Chronic viral hepatitis C (6) Tobacco dependence Current Visit: Yes Status: Chronic - Subjective Interval history: Patient seen and examined. Status post left foot I & D this afternoon. States left foot pain is improved. Denies fevers, chills, rigors. Denies headache or neck pain. Denies chest pain, shortness of breath, or cough. Denies nausea, vomiting, diarrhea, constipation, or abdominal pain. Denies urinary complaints and states his appetite is good. Denies oral thrush or new skin lesions. Infect Dis PN-Objective Data - Labs CBC & Chem 7: 02/10/17 09:28 02/10/17 09:28 Labs: Laboratory Results - last 24 hr 02/09/17 02/10/17 02/10/17 17:27 09:28 09:28 WBC 3.8 L RBC 3.83 L Hgb 12.4 L Hct 36.3 L MCV 94.8 MCH 32.4 MCHC 34.2 RDW 13.7 Plt Count 193 MPV 9.4 Immature Gran % 0.5 Seg Neutrophils % 56.1 Lymphocytes % 33.6 Monocytes % 7.1 Eosinophils % 1.9 Basophils % 0.8 Neutrophils # 2.1 Lymphocytes # 1.3 Monocytes # 0.3 Eosinophils # 0.1 Basophils # 0.0 Sodium Potassium Chloride Carbon Dioxide BUN Creatinine Est GFR ( Amer) Est GFR (Non-Af Amer) BUN/Creatinine Ratio Glucose Calculated Osmolality Calcium Vancomycin Trough 9.4 L HIV Ag/Ab Combo Qual Nonreactive 02/10/17 09:28 WBC RBC Hgb Hct MCV MCH MCHC RDW Plt Count MPV Immature Gran % Seg Neutrophils % Lymphocytes % Monocytes % Eosinophils % Basophils % Neutrophils # Lymphocytes # Monocytes # Eosinophils # Basophils # Sodium 140 Potassium 4.2 Chloride 108 Carbon Dioxide 28 BUN 8 Creatinine 0.71 L Est GFR ( Amer) > 60 Est GFR (Non-Af Amer) > 60 BUN/Creatinine Ratio 11 Glucose 87 Calculated Osmolality 288 Calcium 9.0 Vancomycin Trough HIV Ag/Ab Combo Qual Cultures: Cultures 02/08/17 22:57 Blood Culture - Preliminary Peripheral Venipuncture No growth. 02/08/17 21:51 Blood Culture - Preliminary Peripheral Venipuncture No growth. Serology 02/09/17 Range/Units 17:27 HIV Ag/Ab Combo Qual Nonreactive (Nonreactive) - Impressions Impressions Foot MRI 02/08/17 21:06 IMPRESSION: 1. Extensive, diffuse soft tissue edema present, along with soft tissue enhancement following gadolinium administration, consistent with the history of cellulitis. 2. Intense myositis with severe tenosynovitis involving the flexor digitorum brevis and quadratus plantae. Tenosynovitis extends for approximately 14 cm, to the level of the metatarsal heads. Infectious tenosynovitis with intramuscular abscess of the flexor digitorum brevis/quadratus plantae is suspected in this clinical setting. 3. Severe tenosynovitis of the peroneus longus and peroneus brevis. Cannot exclude infectious tenosynovitis. Short segment longitudinal split tear present involving the juxta malleolar segment of the peroneus brevis. 4. Focal tenosynovitis involving the 3rd extensor tendon complex at the level of the 3rd proximal phalanx. 5. Nonspecific faint marrow edema involving the 4th and 5th metatarsal bases, the cuboid, and the calcaneus. The pattern is not suggestive of osteomyelitis. Hyperemia or evolving stress injury is considered more likely. D/ / 02/09/2017 10:45:53 Diogo Mckeon MD / angie Interpreting Provider: Diogo Mckeon MD Exam - Constitutional Vitals: Temp Pulse Resp BP Pulse Ox 97.5 F L 88 14 134/85 97 02/10/17 15:38 02/10/17 15:38 02/10/17 15:38 02/10/17 15:38 02/10/17 15:38 General appearance: average body habitus, cooperative, no acute distress - Head Head exam: Present: atraumatic, normal inspection, normocephalic - Eye Eye exam: Present: EOMI, normal appearance, PERRL Pupils: Present: normal accommodation Additional comments: No subconjunctival hemorrhage noted. - ENT ENT exam: Present: mucous membranes moist - Neck Neck exam: Present: normal inspection - Respiratory Respiratory exam: Present: CTAB. Absent: rales, respiratory distress, rhonchi, wheezes - Cardiovascular Cardiovascular exam: Present: RRR, +S1, +S2 - GI/Abdominal GI/Abdominal exam: Present: normal bowel sounds, soft. Absent: distended, tenderness - Extremities Exam Extremities exam: Present: tenderness (left foot). Absent: pedal edema Additional comments: Left foot post-op dressing with wound VAC noted. - Neurological Exam Neurological exam: Present: alert, oriented X3, no focal deficits - Psychiatric Psychiatric exam: Present: normal affect, normal mood - Skin Skin exam: Present: dry, intact, normal color, warm Additional comments: No endocarditis stigmata noted. - VTE Documentation of Mechanical Device: Intermittent pneumatic compression device Consult Discharge Plan - Plan Referrals: NONE,PCP [Primary Care Provider] -
[2017-02-10] MEDS: Vancomycin 1,750 MG in D5% in Water 500 ML IVPB SCH (17:15)
--- NOTE | 2017-02-10 23:45 | Internal Med Progress Note ---
Date of Encounter: 02/10/17 Time of Encounter: 15:52 - Assessment and plan (1) Cellulitis Current Visit: Yes Status: Acute Assessment and plan: Left plantar foot tenderness and edema. One out of 2 blood cultures drawn on January 29 grew MRSA. 2 sets of blood cultures from February 08 pending. 02/10/17 13:33: Incision and drainage and debridement of left foot, wound vac placement. Tolerated procedure without issue. Continue IV vancomycin. Qualifiers: Site of cellulitis: extremity Site of cellulitis of extremity: lower extremity Laterality: left Qualified Code(s): L03.116 - Cellulitis of left lower limb (2) Foot abscess, left Current Visit: Yes Status: Acute Assessment and plan: S/P I&D today, cont Vanc (3) DVT prophylaxis Current Visit: Yes Status: Acute (4) Hepatitis C Current Visit: Yes Status: Chronic Qualifiers: Viral hepatitis chronicity: chronic Hepatic coma status: without hepatic coma Qualified Code(s): B18.2 - Chronic viral hepatitis C (5) IV drug user Current Visit: Yes Status: Chronic - Subjective Interval history: Patient not in room first time, was out to surgery. Patient has returned, had I &D and debridement of left foot w wound vac placement. Has no complaints other than post op pain of foot that is fairly controlled. - Constitutional Vitals: Temp Pulse Resp BP Pulse Ox 98.1 F 81 15 124/86 99 02/10/17 19:11 02/10/17 19:11 02/10/17 19:11 02/10/17 19:11 02/10/17 18:06 General appearance: Present: cooperative, A&O X 3, answers questions appropriately Exam: CVS: RRR Lungs: CTAB Abd: NT/ND Ext: left foot in clean dressing with wound vac in place. No edema of any extremities Internal Medicine: Result - Labs CBC & Chem 7: 02/10/17 09:28 02/10/17 09:28 Labs: Short CBC 02/10/17 Range/Units 09:28 WBC 3.8 L (4.3-11.1) K/mcL Hgb 12.4 L (12.9-16.9) g/dL Hct 36.3 L (37.5-50.1) % Plt Count 193 (140-400) K/mcL Neutrophils # 2.1 (1.6-8.9) K/mcL BMP 02/10/17 09:28 Sodium 140 Potassium 4.2 Chloride 108 Carbon Dioxide 28 BUN 8 Creatinine 0.71 L Glucose 87 Calcium 9.0 - ABG Interpretation ABG results: PT/INR, D-dimer PT 14.2 Seconds (9.4-12.1) H 02/09/17 00:26 - VTE Documentation of Mechanical Device: Intermittent pneumatic compression device Consult Discharge Plan - Plan Referrals: NONE,PCP [Primary Care Provider] -
[2017-02-11] MEDS: *HR* Morphine 2 MG/ML SYRINGE IVP PRN ×5 (02:08→20:26)
[2017-02-11] MEDS: *HR* OxyCODONE/APAP 5/325 TABLET PO PRN ×4 (03:19→23:26)
[2017-02-11] MEDS: Vancomycin 1,750 MG in D5% in Water 500 ML IVPB SCH ×2 (03:27→15:13)
[2017-02-11] MEDS ORDERED: *HR* HYDROmorphone (PF) 1 MG/ML SYRINGE IVP ONE (04:08)
[2017-02-11] MEDS: *HR* Heparin 5,000 UNIT/ML VIAL SQ SCH ×2 (05:14→17:08)
[2017-02-11] MEDS: Ibuprofen 400 MG TABLET PO SCH ×4 (05:14→23:26)
[2017-02-11] MEDS: Famotidine 20 MG/2 ML VIAL IVP SCH ×2 (05:14→17:08)
[2017-02-11 05:16] LABS: Basophils % 0.7 %; Eosinophils # 0.1 K/mcL (0.0-0.6); Eosinophils % 1.4 %; Hematocrit 33.7 % (37.5-50.1); Hemoglobin 11.5 g/dL (12.9-16.9); Immature Granulocytes % 0.2 % (0-4); Lymphocytes # 1.1 K/mcL (0.6-4.6); Lymphocytes % 26.4 %; Mean Corpuscular HGB Conc 34.1 g/dL (31.6-35.5); Mean Corpuscular Hemoglobin 31.6 pg (28.0-33.3); Mean Corpuscular Volume 92.6 fL (83.0-100.0); Mean Platelet Volume 9.3 fL (9.4-12.4); Monocytes # 0.3 K/mcL (0.0-1.3); Monocytes % 8.1 %; Neutrophils # 2.7 K/mcL (1.6-8.9); Platelet Count 179 K/mcL (140-400); Red Blood Count 3.64 M/mcL (4.19-5.50); Red Cell Distribution Width 13.5 % (11.5-14.5); Segmented Neutrophils % 63.2 %
[2017-02-11 05:39] LABS: BUN/Creatinine Ratio 8 (6-26); Blood Urea Nitrogen 6 mg/dL (8-26); Calcium 8.6 mg/dL (8.6-10.8); Carbon Dioxide 31 mEq/L (19-29); Chloride 103 mEq/L (98-109); Glucose 145 mg/dL (70-99); Osmolality,Calculated 288 (280-300); Potassium 3.9 mEq/L (3.5-4.5); Sodium 139 mEq/L (136-145); eGFR For African Americans > 60 (> 60); eGFR For Non-African Americans > 60 (> 60)
[2017-02-11] MEDS: Nicotine 14 MG PATCH.TD24 TD SCH (09:25)
--- NOTE | 2017-02-11 15:55 | Podiatry Progress Note ---
Date of Encounter: 02/11/17 Time of Encounter: 12:30 - Assessment and Plan (1) Foot abscess, left Current Visit: Yes Status: Acute Assessment: Patient is status post I&D and debridement multiple areas left foot by Dr. Shields on 02/10/2017 with application of wound VAC. Dressing dry and intact with wound vac connected to 125 mmhg continuous suction. 75 mls of serosanguineous drainage observed to canister. WBC: 4.2, Temp: 97.8 Plan: Dr. Shields to plan on taking patient to OR tomorrow 02/12/17 for a washout. Will make patient NPO after midnight. Infectious Disease consulted and following. Recommend discharge to an ECF after washout. Non weight bearing to LLE. Subjective Interval history: Patient is status post I&D and debridement multiple areas left foot by Dr. Shields on 02/10/2017 with application of wound VAC. Patient is lying in bed with dressing dry and intact. Wound vac connected to 125 mmhg continuous suction. Patient states left foot is painful. No c/o of fever chills, or calf pain. Objective - Vital Signs Vital Signs: Vital Signs Temp Pulse Resp BP Pulse Ox 02/11/17 15:15 97.8 F 91 18 136/85 97 02/11/17 09:37 98 02/11/17 08:25 98.0 F 81 145/84 98 02/11/17 05:41 98.1 F 82 18 145/85 96 02/11/17 00:39 98.1 F 91 18 157/89 98 02/10/17 19:11 98.1 F 81 15 124/86 02/10/17 18:06 97.8 F 90 16 124/79 99 02/10/17 17:01 97.7 F 93 16 123/81 100 02/10/17 16:13 97.6 F 81 16 122/77 98 Intake and Output 02/10/17 02/11/17 02/11/17 23:59 07:59 15:59 Intake Total 700 / 700 1300 / 1300 360 / 360 Output Total 1550 / 1550 1999 / 1999 2845 / 2845 Balance -850 / -850 -700 / -700 -2485 / -2485 Intake: IV Fluids 500 / 500 500 / 500 Vancocin 1,750 MG In Dextrose 5 500 / 500 500 / 500 % 500 ML @ 333.34 mls/hr IVPB Q12H [facility] Rx#:[id number] Oral 200 / 200 800 / 800 360 / 360 Output: Urine 1550 / 1550 1950 / 1950 2725 / 2725 Wound Drainage 50 / 50 120 / 120 Left Foot 50 / 50 120 / 120 Other: Meal Breakfast Percent of Meal Consumed 100% - Exam Exam: General appearance: alert awake oriented X 3. Calm and pleasant, no acute distress.. Vascular: No evidence of cyanosis, pallor or rubor, Edema graded at 1+/4, Skin Temperature warm, No calf pain with manual compression. capillary refill time is immediate to digits. Neurologic: Sensation intact with light touch to foot. . Postop Exam: S/P small black simplace wound VAC sponge intact to left foot connected to continuous suction at 125, 75 mls of serosanguineous drainage observed to canister. Dressing is dry and intact, no streaking. - Lab Result Diagrams: 02/11/17 04:22 02/11/17 04:22 Labs: Abnormal lab results WBC 4.2 K/mcL (4.3-11.1) L 02/11/17 04:22 RBC 3.64 M/mcL (4.19-5.50) L 02/11/17 04:22 Hgb 11.5 g/dL (12.9-16.9) L 02/11/17 04:22 Hct 33.7 % (37.5-50.1) L 02/11/17 04:22 MPV 9.3 fL (9.4-12.4) L 02/11/17 04:22 PT 14.2 Seconds (9.4-12.1) H 02/09/17 00:26 Carbon Dioxide 31 mEq/L (19-29) H 02/11/17 04:22 BUN 6 mg/dL (8-26) L 02/11/17 04:22 Glucose 145 mg/dL (70-99) H 02/11/17 04:22 Vancomycin Trough 9.4 mcg/mL (10-20) L 02/10/17 09:28 Microbiology, Last 48 Hours 02/08/17 22:57 Blood Culture - Preliminary Peripheral Venipuncture No growth. 02/08/17 21:51 Blood Culture - Preliminary Peripheral Venipuncture No growth. - VTE Documentation of Mechanical Device: Intermittent pneumatic compression device Consult Discharge Plan - Plan Referrals: NONE,PCP [Primary Care Provider] -
--- NOTE | 2017-02-11 16:20 | Infectious Disease Progress No ---
Date of Encounter: 02/11/17 Time of Encounter: 16:18 - Assessment and Plan (1) Bacteremia due to methicillin resistant Staphylococcus aureus Current Visit: Yes Status: Acute Causative organism: MRSA. Source unclear: IVDU vs. left foot cellulitis vs. recent laminectomy. Blood cultures drawn 01/29/17 were positive 1/2 sets for MRSA. Uncomplicated at this point. The patient has no indwelling hardware. He has one major and one minor Modified Snow's criteria. Repeat blood cultures drawn 02/08/17 are NGTD x 2 sets. TTE completed 02/09/17 is negative for valvular vegetations. The patient will need a NEWTON prior to discharge. Continue Vancomycin IV. Pharmacy to dose. Goal trough ~15. Duration of treatment depends on the clinical picture. Monitor renal function and for drug toxicity. (2) Foot abscess, left Current Visit: Yes Status: Acute Location: Left medial foot. Causative organism unclear, but likely MRSA given blood culture results. MRI of the left foot showed extensive diffuse soft tissue edema consistent with cellulitis. Intense myositis with severe tenosynovitis in multiple areas were noted. Additionally, there were findings concerning for abscess as well. Podiatry was consulted. States post left foot I & D 02/10/[address] Shields. Operative report reviewed. Extensive infection noted, but no evidence of bone involvement. The pus did penetrate the plantar fascia. Continue Vancomycin IV. Pharmacy to dose. Goal trough ~15. Duration of treatment depends on the clinical picture, but likely 4 weeks of IV antibiotics. relocation services specialist to assist with discharge planning. Recommend ECF placement with patient's history of IVDU. (3) Left foot pain Current Visit: Yes Status: Acute Secondary to left foot abscess. Status post I & D 02/10/[address] Shields. Improved post-operatively. Pain management per the primary and podiatry teams. (4) IV drug user Current Visit: Yes Status: Chronic Reports last use of IV heroine about three weeks ago. Known Hep C positive. HIV negative. Withdraw management per the primary team recommendations. (5) Hepatitis C Current Visit: Yes Status: Chronic Qualifiers: Qualified Code(s): B18.2 - Chronic viral hepatitis C (6) Tobacco dependence Current Visit: Yes Status: Chronic - Subjective Interval history: Patient seen and examined. Status post left foot I & D 02/10/17. States left foot pain is improved, but still pretty severe at times. Denies fevers, chills, rigors. Denies headache or neck pain. Denies chest pain, shortness of breath, or cough. Denies nausea, vomiting, diarrhea, constipation, or abdominal pain. Denies urinary complaints and states his appetite is good. Denies oral thrush or new skin lesions. Infect Dis PN-Objective Data - Labs CBC & Chem 7: 02/11/17 04:22 02/11/17 04:22 Labs: Laboratory Results - last 24 hr 02/11/17 02/11/17 04:22 04:22 WBC 4.2 L RBC 3.64 L Hgb 11.5 L Hct 33.7 L MCV 92.6 MCH 31.6 MCHC 34.1 RDW 13.5 Plt Count 179 MPV 9.3 L Immature Gran % 0.2 Seg Neutrophils % 63.2 Lymphocytes % 26.4 Monocytes % 8.1 Eosinophils % 1.4 Basophils % 0.7 Neutrophils # 2.7 Lymphocytes # 1.1 Monocytes # 0.3 Eosinophils # 0.1 Basophils # 0.0 Sodium 139 Potassium 3.9 Chloride 103 Carbon Dioxide 31 H BUN 6 L Creatinine 0.79 Est GFR ( Amer) > 60 Est GFR (Non-Af Amer) > 60 BUN/Creatinine Ratio 8 Glucose 145 H Calculated Osmolality 288 Calcium 8.6 Cultures: Cultures 02/08/17 22:57 Blood Culture - Preliminary Peripheral Venipuncture No growth. 02/08/17 21:51 Blood Culture - Preliminary Peripheral Venipuncture No growth. Serology 02/09/17 Range/Units 17:27 HIV Ag/Ab Combo Qual Nonreactive (Nonreactive) Exam - Constitutional Vitals: Temp Pulse Resp BP Pulse Ox 97.8 F 91 18 136/85 97 02/11/17 15:15 02/11/17 15:15 02/11/17 15:15 02/11/17 15:15 02/11/17 15:15 General appearance: average body habitus, cooperative, no acute distress - Head Head exam: Present: atraumatic, normal inspection, normocephalic - Eye Eye exam: Present: EOMI, normal appearance, PERRL Pupils: Present: normal accommodation Additional comments: No subconjunctival hemorrhage noted. - ENT ENT exam: Present: mucous membranes moist - Neck Neck exam: Present: normal inspection - Respiratory Respiratory exam: Present: CTAB. Absent: rales, respiratory distress, rhonchi, wheezes - Cardiovascular Cardiovascular exam: Present: RRR, +S1, +S2 - GI/Abdominal GI/Abdominal exam: Present: normal bowel sounds, soft. Absent: distended, tenderness - Extremities Exam Extremities exam: Present: pedal edema, tenderness (left foot). Absent: joint swelling Additional comments: left foot dressing C/D/I with wound VAC noted. - Neurological Exam Neurological exam: Present: alert, oriented X3, no focal deficits - Psychiatric Psychiatric exam: Present: normal affect, normal mood - Skin Skin exam: Present: dry, intact, normal color, warm Additional comments: No endocarditis stigmata noted. - VTE Documentation of Mechanical Device: Intermittent pneumatic compression device Consult Discharge Plan - Plan Referrals: NONE,PCP [Primary Care Provider] -
--- NOTE | 2017-02-11 19:00 | Anesthesia Evaluation PreOp ---
Date of Encounter: 02/11/17 Time of Encounter: 18:58 - Past History Planned Operation: Left Foot I&D Cardiac History: Denies any Significant Hx (Denies any Significant Hx Pulmonary History: Smoker, Pack/yr (1/2 ppd) CUB REPORTER History: Other ( anxiety, panic disorder , PTSD, Spinal stenosis) Other Medical History: Hepatic (Hep C), Other ( Osteomyolitis, Cellulitis Left Foot,) Anesthesia History: No Prior Anesthetic Complications, Past Anesthesia (orthopedic, other (L4-L5 laminectomy November 2016 , skin abscess I&D LLQ)) Alcohol Use: occasionally Drug use: opiates, marijuana , IV Drug Use (IV heroine use 3 weeks ago)) Pulmonary History: Smoker, Pack/yr (1/2 ppd) CUB REPORTER History: Other (anxiety, panic disorder, PTSD, Spinal stenosis) Other Medical History: Hepatic (Hep C), Other (Osteomyolitis, Cellulitis Left Foot,) Anesthesia History: Past Anesthesia ( I&D Left foot 02/10/2017) Alcohol Use: occasionally Drug use: opiates, marijuana, IV Drug Use (IV heroine use 3 weeks ago) Medications and Allergies Cyclobenzaprine [Flexeril] 10 mg PO TID #21 tablet 01/26/17 [Rx] Meloxicam [Mobic] 7.5 mg PO DAILY #10 tablet 01/26/17 [Rx] Naproxen [Naprosyn] 500 mg PO BID PRN #20 tablet 01/27/17 [Rx] 3 Allergy/AdvReac Type Severity Reaction Status Date / Time Amoxicillin Allergy Difficulty Verified 02/08/17 15:41 Breathing promethazine [From Phenergan] Allergy Agitated Verified 02/08/17 15:41 - Meds/Allergy Pre-op Review Medications Reviewed: Yes Allergies Reviewed: Yes Beta Blockers on Current Med List: No Anesthesia Results - Labs 02/11/17 04:22 02/11/17 04:22 Echocardiogram Name: Ignacio Montenegro Date of Study: 02/09/2017 Date: 1970 Ht: 72.0 EV/EV echocardiogram Impressions: LVEF 60-65%. Normal left ventricular diastolic function. Normal right ventricular structure and function. No significant valvular dysfunction. No pulmonary hypertension. No identifiable vegetation on this study. Anesthesia Exam O2 Sat O2 Sat by Pulse Oximetry 97 O2 Sat by Pulse Oximetry 98 O2 Sat by Pulse Oximetry 98 O2 Sat by Pulse Oximetry 96 O2 Sat by Pulse Oximetry 98 Vital Signs Temp Pulse Resp BP Pulse Ox 98.0 F 86 18 146/91 99 02/08/17 19:32 02/08/17 19:32 02/08/17 19:32 02/08/17 19:32 02/08/17 19:32 Height: 6' Weight: 182# NPO (# of Hours): > 8 hrs Pain Scale: 0 Pain Scale Used: Numeric (1 - 10) - HEENT Pupil (Motor): Pupils equal, EOMI Mallampati: II Teeth: Normal Oral Opening: Greater than 3 - CUB REPORTER LOC: Oriented CUB REPORTER Motor: Normal RUE, Normal LUE, Normal RLE, Normal LLE, Normal Face CUB REPORTER Sensory: Normal: RUE, LUE, RLE, LLE, Face - Cardiac Rhythm: Regular Murmur: None JVD: No Carotid Bruit: No - Pulmonary Breath Sounds: bilateral Clear Respiratory Effort: Symmetrical Anesthesia Assess/Plan ASA Score: 3 Modified [place] Scale for Level of Consciousness: Cooperative, oriented, and tranquil Anesthetic Plan: General, Regional Monitoring Plan: Standard Monitors Recovery Plan: PACU
--- NOTE | 2017-02-11 23:11 | Internal Med Progress Note ---
Date of Encounter: 02/11/17 Time of Encounter: 13:22 - Assessment and plan (1) Bacteremia due to methicillin resistant Staphylococcus aureus Current Visit: Yes Status: Acute Assessment and plan: Consult Cardiology in AM for TTE. Patient agreeable to consult and possible TTE. ID following, Continue Vanc. F/U final blood cultures 02/08, currently NGTD (2) Foot abscess, left Current Visit: Yes Status: Acute Assessment and plan: POD #1 s/p I&D and wound vac placement. Podiatry and ID following. (3) Cellulitis Current Visit: Yes Status: Acute Assessment and plan: Left plantar foot tenderness and edema. One out of 2 blood cultures drawn on January 29 grew MRSA. 2 sets of blood cultures from February 08 pending. 02/10/17 13:33: Incision and drainage and debridement of left foot, wound vac placement. Tolerated procedure without issue. Continue IV vancomycin. Qualifiers: Site of cellulitis: extremity Site of cellulitis of extremity: lower extremity Laterality: left Qualified Code(s): L03.116 - Cellulitis of left lower limb (4) DVT prophylaxis Current Visit: Yes Status: Acute (5) Hepatitis C Current Visit: Yes Status: Chronic Qualifiers: Viral hepatitis chronicity: chronic Hepatic coma status: without hepatic coma Qualified Code(s): B18.2 - Chronic viral hepatitis C (6) IV drug user Current Visit: Yes Status: Chronic - Subjective Interval history: Patient in bed. No complaints, no acute events. Denies fevers/chills. Pain is stable without breakthrough. - Constitutional Vitals: Temp Pulse Resp BP Pulse Ox 98.0 F 95 18 135/85 98 02/11/17 19:27 02/11/17 19:27 02/11/17 19:27 02/11/17 19:27 02/11/17 19:27 General appearance: Present: cooperative, A&O X 3, answers questions appropriately Exam: CVS: RRR Lungs: CTAB Abd: NT/ND Ext: left foot in clean dressing with wound vac in place. No edema of any extremities Internal Medicine: Result - Labs CBC & Chem 7: 02/11/17 04:22 02/11/17 04:22 Labs: Short CBC 02/11/17 Range/Units 04:22 WBC 4.2 L (4.3-11.1) K/mcL Hgb 11.5 L (12.9-16.9) g/dL Hct 33.7 L (37.5-50.1) % Plt Count 179 (140-400) K/mcL Neutrophils # 2.7 (1.6-8.9) K/mcL BMP 02/11/17 04:22 Sodium 139 Potassium 3.9 Chloride 103 Carbon Dioxide 31 H BUN 6 L Creatinine 0.79 Glucose 145 H Calcium 8.6 - ABG Interpretation ABG results: PT/INR, D-dimer PT 14.2 Seconds (9.4-12.1) H 02/09/17 00:26 - VTE Documentation of Mechanical Device: Intermittent pneumatic compression device Consult Discharge Plan - Plan Referrals: NONE,PCP [Primary Care Provider] -
[2017-02-12] MEDS: *HR* Morphine 2 MG/ML SYRINGE IVP PRN ×5 (00:58→22:49)
[2017-02-12 03:39] LABS: Basophils % 0.8 %; Eosinophils # 0.1 K/mcL (0.0-0.6); Eosinophils % 2.1 %; Hematocrit 36.3 % (37.5-50.1); Hemoglobin 12.4 g/dL (12.9-16.9); Immature Granulocytes % 0.3 % (0-4); Immature Platelets 1.3 % (1.1-6.1); Lymphocytes # 1.3 K/mcL (0.6-4.6); Lymphocytes % 33.7 %; Mean Corpuscular HGB Conc 34.2 g/dL (31.6-35.5); Mean Corpuscular Hemoglobin 32.2 pg (28.0-33.3); Mean Corpuscular Volume 94.3 fL (83.0-100.0); Monocytes # 0.3 K/mcL (0.0-1.3); Monocytes % 8.4 %; Neutrophils # 2.1 K/mcL (1.6-8.9); Platelet Count 240 K/mcL (140-400); Red Blood Count 3.85 M/mcL (4.19-5.50); Red Cell Distribution Width 13.5 % (11.5-14.5); Segmented Neutrophils % 54.7 %
[2017-02-12 03:50] LABS: BUN/Creatinine Ratio 12 (6-26); Blood Urea Nitrogen 9 mg/dL (8-26); Carbon Dioxide 28 mEq/L (19-29); Chloride 103 mEq/L (98-109); Glucose 113 mg/dL (70-99); Osmolality,Calculated 287 (280-300); Potassium 4.3 mEq/L (3.5-4.5); Sodium 139 mEq/L (136-145); eGFR For African Americans > 60 (> 60); eGFR For Non-African Americans > 60 (> 60)
[2017-02-12] MEDS: Famotidine 20 MG/2 ML VIAL IVP SCH ×2 (05:08→18:43)
[2017-02-12] MEDS: Vancomycin 1,750 MG in D5% in Water 500 ML IVPB SCH (05:08)
[2017-02-12] MEDS: *HR* Heparin 5,000 UNIT/ML VIAL SQ SCH ×2 (05:08→18:42)
[2017-02-12] MEDS: *HR* OxyCODONE/APAP 5/325 TABLET PO PRN ×3 (06:26→21:06)
[2017-02-12] MEDS: Ibuprofen 400 MG TABLET PO SCH ×5 (06:26→23:38)
[2017-02-12] MEDS: Nicotine 14 MG PATCH.TD24 TD SCH (09:20)
--- NOTE | 2017-02-12 14:18 | Infectious Disease Progress No ---
Date of Encounter: 02/12/17 Time of Encounter: 14:15 - Assessment and Plan (1) Bacteremia due to methicillin resistant Staphylococcus aureus Current Visit: Yes Status: Acute Causative organism: MRSA. Source unclear: IVDU vs. left foot cellulitis vs. recent laminectomy. Blood cultures drawn 01/29/17 were positive 1/2 sets for MRSA. Uncomplicated at this point. The patient has no indwelling hardware. He has one major and one minor Modified Snow's criteria. Repeat blood cultures drawn 02/08/17 are NGTD x 2 sets. TTE completed 02/09/17 is negative for valvular vegetations. The patient will need a NEWTON prior to discharge. Continue Vancomycin IV. Pharmacy to dose. Goal trough ~15. Duration of treatment depends on the clinical picture. Monitor renal function and for drug toxicity. (2) Foot abscess, left Current Visit: Yes Status: Acute Location: Left medial foot. Causative organism unclear, but likely MRSA given blood culture results. MRI of the left foot showed extensive diffuse soft tissue edema consistent with cellulitis. Intense myositis with severe tenosynovitis in multiple areas were noted. Additionally, there were findings concerning for abscess as well. Podiatry was consulted. States post left foot I & D 02/10/[address] Shields. Operative report reviewed. Extensive infection noted, but no evidence of bone involvement. The pus did penetrate the plantar fascia. Scheduled to go back to the OR for repeat washout today. Continue Vancomycin IV. Pharmacy to dose. Goal trough ~15. Duration of treatment depends on the clinical picture, but likely 4 weeks of IV antibiotics. client services representative to assist with discharge planning. Recommend ECF placement with patient's history of IVDU. (3) Left foot pain Current Visit: Yes Status: Acute Secondary to left foot abscess. Status post I & D 02/10/[address] Shields. Improved post-operatively. Pain management per the primary and podiatry teams. (4) IV drug user Current Visit: Yes Status: Chronic Reports last use of IV heroine about three weeks ago. Known Hep C positive. HIV negative. Withdraw management per the primary team recommendations. (5) Hepatitis C Current Visit: Yes Status: Chronic Qualifiers: Viral hepatitis chronicity: chronic Hepatic coma status: without hepatic coma Qualified Code(s): B18.2 - Chronic viral hepatitis C (6) Tobacco dependence Current Visit: Yes Status: Chronic - Subjective Interval history: Patient seen and examined. Status post left foot I & D 02/10/17. Scheduled to go back to the OR later today for repeat washout. States left foot pain is improved, but still pretty severe at times. Denies fevers, chills, rigors. Denies headache or neck pain. Denies chest pain, shortness of breath, or cough. Denies nausea, vomiting, diarrhea, constipation, or abdominal pain. Denies urinary complaints and states his appetite is good. Denies oral thrush or new skin lesions. Infect Dis PN-Objective Data - Labs CBC & Chem 7: 02/12/17 03:31 02/12/17 03:31 Labs: Laboratory Results - last 24 hr 02/12/17 02/12/17 02/12/17 03:31 03:31 03:31 WBC 3.8 L RBC 3.85 L Hgb 12.4 L Hct 36.3 L MCV 94.3 MCH 32.2 MCHC 34.2 RDW 13.5 Plt Count 240 MPV 9.0 L Immature Gran % 0.3 Seg Neutrophils % 54.7 Lymphocytes % 33.7 Monocytes % 8.4 Eosinophils % 2.1 Basophils % 0.8 Neutrophils # 2.1 Lymphocytes # 1.3 Monocytes # 0.3 Eosinophils # 0.1 Basophils # 0.0 Immature Plt Fraction 1.3 Sodium 139 Potassium 4.3 Chloride 103 Carbon Dioxide 28 BUN 9 Creatinine 0.76 Est GFR ( Amer) > 60 Est GFR (Non-Af Amer) > 60 BUN/Creatinine Ratio 12 Glucose 113 H Calculated Osmolality 287 Calcium 9.0 Vancomycin Trough 10.8 Cultures: Cultures 02/10/17 13:07 Wound Culture - Preliminary Left Foot Staphylococcus aureus 02/08/17 22:57 Blood Culture - Preliminary Peripheral Venipuncture No growth. 02/08/17 21:51 Blood Culture - Preliminary Peripheral Venipuncture No growth. Serology 02/09/17 Range/Units 17:27 HIV Ag/Ab Combo Qual Nonreactive (Nonreactive) Exam - Constitutional Vitals: Temp Pulse Resp BP Pulse Ox 98.3 F 76 14 128/81 96 02/12/17 10:30 02/12/17 10:30 02/12/17 10:30 02/12/17 10:30 02/12/17 10:30 General appearance: average body habitus, cooperative, no acute distress - Head Head exam: Present: atraumatic, normal inspection, normocephalic - Eye Eye exam: Present: EOMI, normal appearance, PERRL Pupils: Present: normal accommodation Additional comments: No subconjunctival hemorrhage noted. - ENT ENT exam: Present: mucous membranes moist - Neck Neck exam: Present: normal inspection - Respiratory Respiratory exam: Present: CTAB. Absent: rales, respiratory distress, rhonchi, wheezes - Cardiovascular Cardiovascular exam: Present: RRR, +S1, +S2 - GI/Abdominal GI/Abdominal exam: Present: normal bowel sounds, soft. Absent: distended, tenderness - Extremities Exam Additional comments: Left foot wound VAC dressing intact. - Neurological Exam Neurological exam: Present: alert, oriented X3, no focal deficits - Psychiatric Psychiatric exam: Present: normal affect, normal mood - Skin Skin exam: Present: dry, intact, normal color, warm Additional comments: No endocarditis stigmata noted. - VTE Documentation of Mechanical Device: Intermittent pneumatic compression device Consult Discharge Plan - Plan Referrals: NONE,PCP [Primary Care Provider] -
[2017-02-12] MEDS ORDERED: Bupivacaine/Clonidine Syringe 1 EACH SYRINGE ONE (16:12)
[2017-02-12] MEDS ORDERED: *HR* Propofol 200 MG/20 ML VIAL IVP ONE ×2 (16:15→16:17)
[2017-02-12] MEDS ORDERED: *HR* FentaNYL (PF) 100 MCG/2 ML VIAL ONE (16:15)
[2017-02-12] MEDS ORDERED: Lidocaine -MPF 2% 2 ML VIAL ONE (16:16)
[2017-02-12] MEDS ORDERED: Ketamine *HR* 500 MG/10 ML MDV ONE (16:18)
[2017-02-12] MEDS ORDERED: *HR* HYDROmorphone (PF) 1 MG/ML SYRINGE IVP PRN ×3 (16:40→18:08)
[2017-02-12] MEDS ORDERED: Ondansetron 4 MG/2 ML VIAL IVP PRN ×3 (16:40→18:08)
[2017-02-12] MEDS ORDERED: *HR* HYDROmorphone 2 MG/ML SYRINGE ONE (16:52)
[2017-02-12] MEDS ORDERED: Vancomycin 2,000 MG in D5% in Water 500 ML IVPB SCH ×2 (17:00→20:00)
[2017-02-12] MEDS: 0.9 % Sodium Chloride 1,000 ML IVC SCH (17:33)
[2017-02-12] MEDS: Vancomycin 1,250 MG in D5% in Water 250 ML IVPB SCH (17:34)
--- NOTE | 2017-02-12 17:35 | Orthopedic Operative Note ---
Date of procedure: 02/12/17 Pre-op diagnosis: Open surgical wound status post I&D left foot Post-op diagnosis: same Procedure: 02/12/17 17:28 #1: Debridement irrigation and drainage #2: Secondary closure surgical wound #3 placement of TLS drain 02/12/17 17:35 Implants: TLS drain Complications: None Anesthesia: local, other (LMA) Local Anesthetics: 0.25% Sensorcaine HCL SubQ (cc) (Posterior tibial nerve block /ankle block modified left foot) Surgeon: Martin Shields Estimated blood loss (cc): 20 Tourniquet Time (Minutes): 0 Specimen: None Condition: stable Disposition: PACU Procedure in Detail: 02/12/17 17:30 Details in summary of procedure: This is a staged procedure. Patient underwent initial incision and drainage and debridement of the left foot for an abscess and necrosis of tissue. Patient underwent placement of wound VAC for the last 48 hours with successful reduction in the overall edema and erythema of the left foot which was dramatic. Cellulitis has resolved. Removal of the wound VAC revealed a clean healthy wound without evidence of infection. There is nonviable ligamentous structures were needed debridement on cursory exam nonetheless we see a wound that should be closed surgically. Patient was brought to the surgical suite. A sign in procedure was performed. The patient was then transferred to the surgical table and positioned properly safely securely with the left leg being elevated on a foam block. Anesthetic timeout was taken patient underwent smooth induction and general anesthesia per LMA. That point the left ankle was prepped with alcohol 3 times in a posterior tibial block was carried out as well as a modified ankle block with local anesthetic to afford the patient postoperative analgesia. The left foot was then prepped and draped in usual sterile manner. Surgical timeout was taken. The incision and wound was inspected thoroughly and re-debrided of all nonviable tissue with a pickup and curved Metzenbaum scissor and a Caperflyonix ultrasonic debrider. The wound was approximately 8 cm in length. The original incision was approximately 15 cm in length with sutures proximally and distally. There was a tunnel beneath the plantar fascia extending back to the anterior aspect of the calcaneus as well as 4 cm distally toward the plantar aspect of the third MTPJ. All clot nonviable tissue was evacuated. The wound was noted to bleed freely without sustaining use of ligature Bovie. The wound was then thoroughly irrigated again with a bulb syringe. Finding no active bleeding or nonviable tissue the wound was inspected again. At that juncture was suctioned thoroughly. Satisfied that we had a clean wound. He was sprayed throughout the length of the wound and into the previous tunnel that was noted proximally. A TLS drain was placed. The wound was then closed in routine fashion using Vicryl and 3-0 Prolene for the skin. The area around the exit for the TLS drain was painted with skin prep and the drain was anchored with Steri-Strips. Steri-Strips were also placed over the wound as well as Xeroform gauze 4 x 4's and Kerlix and a mild compressive dressing. The TLS drain was noted to function properly. Rebound time is less than 3 seconds to all toes. Again no tourniquet was used on this occasion. Patient tolerated the procedure and the anesthesia without difficulty and was extubated and then sent to PACU in good condition with vital signs stable. Estimated blood loss less than 20 mL.
[2017-02-12] MEDS: *HR* Labetalol 20 MG/4 ML SYRINGE IVP PRN ×2 (17:43→17:53)
--- NOTE | 2017-02-12 17:43 | Anesthesia Evaluation Post Op ---
Date of Encounter: 02/12/17 Time of Encounter: 17:42 - Vital Signs Vital Signs: Vital Signs/O2 Sat/Glucose, Most Recent Temp Pulse Resp BP Pulse Ox 98.3 F 76 14 128/81 96 02/12/17 10:30 02/12/17 10:30 02/12/17 10:30 02/12/17 10:30 02/12/17 10:30 - Lungs Lungs: Clear Ascult./Percussion - Airway Airway: Non-obstructed - Cardiovascular Regular Rate - Mental Status Mental Status: Alert & Oriented, Answers Appropriately - Pain Pain Scale: 2 (baseline) Pain Scale used: Numeric (1 - 10) - Nausea Vomiting Nausea Vomiting: Not Present - Hydration Hydration: Tolerates oral liquids - Discharge PostOp Status: Transfer Patient to floor
[2017-02-12] MEDS ORDERED: *HR* Labetalol 20 MG/4 ML SYRINGE IVP PRN (18:08)
[2017-02-12] MEDS ORDERED: Acetaminophen 325 MG TABLET PO PRN (18:08)
[2017-02-12] MEDS ORDERED: Naloxone 0.4 MG/ML INJ IVP PRN (18:08)
[2017-02-12] MEDS ORDERED: Ipratropium/Albuterol Neb 3 ML IH PRN (18:08)
[2017-02-12] MEDS: Vancomycin 2,000 MG in D5% in Water 500 ML IVPB SCH (20:15)
[2017-02-13] MEDS: *HR* OxyCODONE/APAP 5/325 TABLET PO PRN ×2 (02:05→10:50)
[2017-02-13 04:06] LABS: BUN/Creatinine Ratio 14 (6-26); Basophils % 0.9 %; Blood Urea Nitrogen 11 mg/dL (8-26); Calcium 8.8 mg/dL (8.6-10.8); Carbon Dioxide 31 mEq/L (19-29); Chloride 103 mEq/L (98-109); Eosinophils # 0.1 K/mcL (0.0-0.6); Eosinophils % 1.4 %; Glucose 109 mg/dL (70-99); Hematocrit 35.3 % (37.5-50.1); Hemoglobin 11.8 g/dL (12.9-16.9); Immature Granulocytes % 0.2 % (0-4); Lymphocytes # 1.2 K/mcL (0.6-4.6); Lymphocytes % 27.5 %; Mean Corpuscular HGB Conc 33.4 g/dL (31.6-35.5); Mean Corpuscular Hemoglobin 31.6 pg (28.0-33.3); Mean Corpuscular Volume 94.4 fL (83.0-100.0); Mean Platelet Volume 9.1 fL (9.4-12.4); Monocytes # 0.3 K/mcL (0.0-1.3); Monocytes % 7.3 %; Neutrophils # 2.7 K/mcL (1.6-8.9); Osmolality,Calculated 288 (280-300); Platelet Count 211 K/mcL (140-400); Potassium 4.3 mEq/L (3.5-4.5); Red Blood Count 3.74 M/mcL (4.19-5.50); Red Cell Distribution Width 13.8 % (11.5-14.5); Segmented Neutrophils % 62.7 %; Sodium 139 mEq/L (136-145); eGFR For African Americans > 60 (> 60); eGFR For Non-African Americans > 60 (> 60)
[2017-02-13] MEDS: Ibuprofen 400 MG TABLET PO SCH ×2 (05:09→11:21)
[2017-02-13] MEDS: *HR* Morphine 2 MG/ML SYRINGE IVP PRN ×4 (05:09→22:38)
[2017-02-13] MEDS: Famotidine 20 MG/2 ML VIAL IVP SCH ×2 (05:10→16:52)
[2017-02-13] MEDS: *HR* Heparin 5,000 UNIT/ML VIAL SQ SCH ×2 (06:16→16:52)
[2017-02-13] MEDS ORDERED: 0.9 % Sodium Chloride 500 ML IVC ONE (07:21)
[2017-02-13] MEDS ORDERED: Tetracaine/Benzocaine/Butamben 200MG/SPRAY (100SPY/BOT) MM ONE (07:32)
[2017-02-13] MEDS ORDERED: Lidocaine -MPF 1% 5 ML AMPUL INFILT ONE (08:09)
[2017-02-13] MEDS: *HR* FentaNYL (PF) 100 MCG/2 ML VIAL IVP PRN ×3 (08:20→08:30)
[2017-02-13] MEDS: *HR* Midazolam HCl 5 MG/5 ML VIAL IVP PRN ×3 (08:20→08:30)
[2017-02-13] MEDS: Vancomycin 2,000 MG in D5% in Water 500 ML IVPB SCH ×2 (09:20→20:31)
[2017-02-13] MEDS: Nicotine 14 MG PATCH.TD24 TD SCH (09:36)
--- NOTE | 2017-02-13 11:16 | Infectious Disease Progress No ---
Date of Encounter: 02/13/17 Time of Encounter: 11:13 - Assessment and Plan (1) Bacteremia due to methicillin resistant Staphylococcus aureus Current Visit: Yes Status: Acute Causative organism: MRSA. Source likely the left foot infection. Blood cultures drawn 01/29/17 were positive 1/2 sets for MRSA. Uncomplicated, but the patient will likely require a prolonged course of IV antibiotics due to the extensive foot infection. He has one major and one minor Modified Snow's criteria. Repeat blood cultures drawn 02/08/17 are NGTD x 2 sets. TTE and NEWTON are negative for vegetations. Continue Vancomycin IV. Pharmacy to dose. Goal trough ~15. Duration of treatment depends on the clinical picture, likely 4-6 weeks given the extensive foot infection. Monitor renal function and for drug toxicity. Consult VAT for PICC placement. (2) Foot abscess, left Current Visit: Yes Status: Acute Location: Left medial foot. Causative organism unclear, but likely MRSA given blood culture results. MRI of the left foot showed extensive diffuse soft tissue edema consistent with cellulitis. Intense myositis with severe tenosynovitis in multiple areas were noted. Additionally, there were findings concerning for abscess as well. Podiatry was consulted. States post left foot I & D 02/10/[address] Shields. Operative report reviewed. Extensive infection noted, but no evidence of bone involvement. The pus did penetrate the plantar fascia. Status post repeat washout 02/12/17. Operative note reviewed and no additional infection was noted. Continue Vancomycin IV. Pharmacy to dose. Goal trough ~15. Duration of treatment depends on the clinical picture, but likely 4 weeks of IV antibiotics. creative services producer to assist with discharge planning. Recommend ECF placement with patient's history of IVDU. Will need weekly CBC, BUN/Cr, ESR, CRP, and Vanc trough. Will need weekly PICC care. Follow up with ID two weeks post-discharge. (3) Left foot pain Current Visit: Yes Status: Acute Secondary to left foot abscess. Status post I & D 02/10/[address] Shields with repeat washout 02/12/17. Improved post-operatively. Pain management per the primary and podiatry teams. (4) IV drug user Current Visit: Yes Status: Chronic Reports last use of IV heroine about three weeks ago. Known Hep C positive. HIV negative. Withdraw management per the primary team recommendations. (5) Hepatitis C Current Visit: Yes Status: Chronic Qualifiers: Viral hepatitis chronicity: chronic Hepatic coma status: without hepatic coma Qualified Code(s): B18.2 - Chronic viral hepatitis C (6) Tobacco dependence Current Visit: Yes Status: Chronic - Subjective Interval history: Patient seen and examined. Status post left foot I & D 02/10/17 with repeat washout 02/12/17. States left foot pain is improved, but still pretty severe at times. Denies fevers, chills, rigors. Denies headache or neck pain. Denies chest pain, shortness of breath, or cough. Denies nausea, vomiting, diarrhea, constipation, or abdominal pain. Denies urinary complaints and states his appetite is good. Denies oral thrush or new skin lesions. Infect Dis PN-Objective Data - Labs CBC & Chem 7: 02/13/17 03:43 02/13/17 03:43 Labs: Laboratory Results - last 24 hr 02/13/17 02/13/17 03:43 03:43 WBC 4.4 RBC 3.74 L Hgb 11.8 L Hct 35.3 L MCV 94.4 MCH 31.6 MCHC 33.4 RDW 13.8 Plt Count 211 MPV 9.1 L Immature Gran % 0.2 Seg Neutrophils % 62.7 Lymphocytes % 27.5 Monocytes % 7.3 Eosinophils % 1.4 Basophils % 0.9 Neutrophils # 2.7 Lymphocytes # 1.2 Monocytes # 0.3 Eosinophils # 0.1 Basophils # 0.0 Sodium 139 Potassium 4.3 Chloride 103 Carbon Dioxide 31 H BUN 11 Creatinine 0.77 Est GFR ( Amer) > 60 Est GFR (Non-Af Amer) > 60 BUN/Creatinine Ratio 14 Glucose 109 H Calculated Osmolality 288 Calcium 8.8 Cultures: Cultures 02/10/17 13:07 Wound Culture - Final Left Foot Methicillin Resistant S.aureus 02/08/17 22:57 Blood Culture - Preliminary Peripheral Venipuncture No growth. 02/08/17 21:51 Blood Culture - Preliminary Peripheral Venipuncture No growth. Serology 02/09/17 Range/Units 17:27 HIV Ag/Ab Combo Qual Nonreactive (Nonreactive) Exam - Constitutional Vitals: Temp Pulse Resp BP Pulse Ox 97.5 F L 87 15 111/73 97 02/13/17 09:28 02/13/17 09:28 02/13/17 09:28 02/13/17 09:28 02/13/17 09:28 General appearance: average body habitus, cooperative, no acute distress - Head Head exam: Present: atraumatic, normal inspection, normocephalic - Eye Eye exam: Present: EOMI, normal appearance, PERRL Pupils: Present: normal accommodation Additional comments: No subconjunctival hemorrhage noted. - ENT ENT exam: Present: mucous membranes moist - Neck Neck exam: Present: normal inspection - Respiratory Respiratory exam: Present: CTAB. Absent: rales, respiratory distress, rhonchi, wheezes - Cardiovascular Cardiovascular exam: Present: RRR, +S1, +S2 - GI/Abdominal GI/Abdominal exam: Present: normal bowel sounds, soft. Absent: distended, tenderness - Extremities Exam Extremities exam: Present: pedal edema (Trace LLE), tenderness (left foot). Absent: joint swelling Additional comments: Left foot post-op dressing in place with TLS drain with a small amount of sanguinous drainage noted. - Back Exam Back exam: Present: normal inspection. Absent: paraspinal tenderness, vertebral tenderness - Neurological Exam Neurological exam: Present: alert, oriented X3, no focal deficits - Psychiatric Psychiatric exam: Present: normal affect, normal mood - Skin Skin exam: Present: dry, intact, normal color, warm Additional comments: No endocarditis stigmata noted. - VTE Documentation of Mechanical Device: Intermittent pneumatic compression device Consult Discharge Plan - Plan Referrals: NONE,PCP [Primary Care Provider] - Antonette Coffey, PSYCHOLOGY TEACHER [Advanced Practice Nurse] - 03/03/17 8:20 am
--- NOTE | 2017-02-13 14:42 | Internal Med Progress Note ---
Date of Encounter: 02/12/17 Time of Encounter: 15:00 - Assessment and plan (1) Bacteremia due to methicillin resistant Staphylococcus aureus Current Visit: Yes Status: Acute Assessment and plan: NEWTON tomorrow in a.m. ID following, Continue Vanc. F/U final blood cultures 02/08, currently NGTD (2) Foot abscess, left Current Visit: Yes Status: Acute Assessment and plan: POD #1 s/p I&D and wound vac placement. Podiatry and ID following. (3) Cellulitis Current Visit: Yes Status: Acute Assessment and plan: Left plantar foot tenderness and edema. One out of 2 blood cultures drawn on January 29 grew MRSA. 2 sets of blood cultures from February 08 pending. 02/10/17 13:33: Incision and drainage and debridement of left foot, wound vac placement. Tolerated procedure without issue. Continue IV vancomycin. Qualifiers: Site of cellulitis: extremity Site of cellulitis of extremity: lower extremity Laterality: left Qualified Code(s): L03.116 - Cellulitis of left lower limb (4) DVT prophylaxis Current Visit: Yes Status: Acute (5) Hepatitis C Current Visit: Yes Status: Chronic Qualifiers: Viral hepatitis chronicity: chronic Hepatic coma status: without hepatic coma Qualified Code(s): B18.2 - Chronic viral hepatitis C (6) IV drug user Current Visit: Yes Status: Chronic Assessment and plan: Monitor for withdrawal. Cautious use of IV opiates; PRN Oxycodone and NSAIDs for pain control; Patient will need placement if requires IV antibiotics. - Subjective Interval history: Patient in bed. No complaints, no acute events. Denies fevers/chills. Well- controlled pain - Constitutional Vitals: Temp Pulse Resp BP Pulse Ox 97.8 F 85 16 122/73 98 02/13/17 11:45 02/13/17 11:45 02/13/17 11:45 02/13/17 11:45 02/13/17 11:45 General appearance: Present: cooperative, A&O X 3, answers questions appropriately Exam: - Respiratory Respiratory exam: Present: CTAB. Absent: rales, respiratory distress, rhonchi, wheezes - Cardiovascular Cardiovascular exam: Present: RRR, +S1, +S2 - GI/Abdominal GI/Abdominal exam: Present: normal bowel sounds, soft. Absent: distended, tenderness - Extremities Exam Extremities exam: Present: pedal edema (Trace LLE), tenderness (left foot). Absent: joint swelling Additional comments: Left foot post-op dressing in place with TLS drain with a small amount of sanguinous drainage noted. - Back Exam Back exam: Present: normal inspection. Absent: paraspinal tenderness, vertebral tenderness - Neurological Exam Neurological exam: Present: alert, oriented X3, no focal deficits - Psychiatric Psychiatric exam: Present: normal affect, normal mood - Skin Skin exam: Present: dry, intact, normal color, warm Additional comments: Internal Medicine: Result - Labs CBC & Chem 7: 02/13/17 03:43 02/13/17 03:43 Labs: Short CBC 02/13/17 Range/Units 03:43 WBC 4.4 (4.3-11.1) K/mcL Hgb 11.8 L (12.9-16.9) g/dL Hct 35.3 L (37.5-50.1) % Plt Count 211 (140-400) K/mcL Neutrophils # 2.7 (1.6-8.9) K/mcL BMP 02/13/17 03:43 Sodium 139 Potassium 4.3 Chloride 103 Carbon Dioxide 31 H BUN 11 Creatinine 0.77 Glucose 109 H Calcium 8.8 - ABG Interpretation ABG results: PT/INR, D-dimer PT 14.2 Seconds (9.4-12.1) H 02/09/17 00:26 - VTE Documentation of Mechanical Device: Intermittent pneumatic compression device Consult Discharge Plan - Plan Referrals: Antonette Coffey CNP [Advanced Practice Nurse] - 03/03/17 8:20 am NONE,PCP [Primary Care Provider] -
[2017-02-13] MEDS: *HR* OxyCODONE/APAP 7.5/325 TABLET PO PRN (16:52)
--- NOTE | 2017-02-13 17:34 | Podiatry Progress Note ---
Date of Encounter: 02/13/17 Time of Encounter: 17:15 - Assessment and Plan (1) Osteomyelitis Current Visit: No Status: Suspected s/p #1: Debridement irrigation and drainage #2: Secondary closure surgical wound #3 placement of TLS drain Patient dressing changed at bedside, daily dressing changes, adaptic, 4x4 and kerlex Non weight bearing to surgical area, heel only Patient will need placement to LTCF for IV antibiotic therapy due to hx of IVDA Wound culture grew out MRSA- patient currently on IV vancomycin Sw on board for placement Qualifiers: Osteomyelitis type: other acute Osteomyelitis location: foot Laterality: left Qualified Code(s): M86.172 - Other acute osteomyelitis, left ankle and foot (2) Bacteremia due to methicillin resistant Staphylococcus aureus Current Visit: Yes Status: Acute continue current IV antibiotic therapy Monitor renal function (3) IV drug user Current Visit: Yes Status: Chronic Will need placement to LTCF for IV antibiotic therapy due to hx of IVDA Subjective Interval history: PO day #1 s/p #1: Debridement irrigation and drainage #2: Secondary closure surgical wound #3 placement of TLS drain per Patient resting comfortably on arrival. Dressing intact. TLS drain intact and scant amount of bloody drainage noted. Patient states he is in a lot of pain however internal medicine just increased his percocet and morphine dosages. Patient denies any fevers, chills, n/v or flu like symptoms Patient has been afebrile and wbc 4.2 Objective - Vital Signs Vital Signs: Vital Signs Temp Pulse Resp BP Pulse Ox 02/13/17 14:48 98 F 93 16 126/78 99 02/13/17 11:45 97.8 F 85 16 122/73 98 02/13/17 09:28 97.5 F L 87 15 111/73 97 02/13/17 07:38 97.8 F 85 14 124/83 96 02/13/17 06:55 98.1 F 87 16 112/76 95 02/13/17 00:29 97.9 F 83 18 114/73 96 02/12/17 21:31 98.1 F 83 20 117/76 98 02/12/17 20:23 97.6 F 79 20 120/74 98 02/12/17 19:24 97.6 F 80 16 109/65 97 02/12/17 18:24 97.7 F 84 16 136/82 96 02/12/17 18:04 98.2 F 85 12 132/90 97 02/12/17 17:54 86 12 130/89 96 02/12/17 17:44 98 14 147/108 96 02/12/17 17:34 98.0 F 101 16 146/90 98 Intake and Output 02/13/17 02/13/17 02/13/17 07:59 15:59 23:59 Intake Total 1025 / 1025 Output Total 1100 / 1100 1962 / 1962 Balance -1100 / -1100 -938 / -938 Intake: IV Fluids 675 / 675 0.9 % Sodium Chloride 500 ML @ 175 / 175 150 mls/hr IVC .Q3H20M ONE Rx#: [id number] Vancocin 2,000 MG In Dextrose 5 500 / 500 % 500 ML @ 250 mls/hr IVPB Q12H JIMMY Rx#:[id number] Oral 350 / 350 Output: Urine 1100 / 1100 1950 / 1950 Wound Drainage Left Foot Other: Meal Lunch Percent of Meal Consumed 60% Weight 82.554 kg Patient Weight 02/13/17 23:59 Weight 82.554 kg - Exam Exam: Awake, alert and oriented Dressing removed Incision clean dry and intact Incision line without dehiscence or clinical signs of infection, no erythema, edema, warmth or drainage Patient reports tenderness with palpation TLS drain in place- patent- bloody drainage noted Pulses palpable DP/PT Sensation intact with light touch Cap refill <3 seconds to digits No calf pain with manual compression Incision: Present: healing - Lab Result Diagrams: 02/13/17 03:43 02/13/17 03:43 Labs: Abnormal lab results RBC 3.74 M/mcL (4.19-5.50) L 02/13/17 03:43 Hgb 11.8 g/dL (12.9-16.9) L 02/13/17 03:43 Hct 35.3 % (37.5-50.1) L 02/13/17 03:43 MPV 9.1 fL (9.4-12.4) L 02/13/17 03:43 PT 14.2 Seconds (9.4-12.1) H 02/09/17 00:26 Carbon Dioxide 31 mEq/L (19-29) H 02/13/17 03:43 Glucose 109 mg/dL (70-99) H 02/13/17 03:43 Microbiology, Last 48 Hours 02/10/17 13:07 Anaerobic Culture - Preliminary Left Foot At this time, no anaerobic growth is present. The culture will be finalized after 5 days of incubation. 02/10/17 13:07 Wound Culture - Final Left Foot Methicillin Resistant S.aureus - VTE Documentation of Mechanical Device: Intermittent pneumatic compression device Consult Discharge Plan - Plan Referrals: Antonette Coffey CNP [Advanced Practice Nurse] - 03/03/17 8:20 am NONE,PCP [Primary Care Provider] -
--- NOTE | 2017-02-13 22:34 | Internal Med Progress Note ---
Date of Encounter: 02/12/17 Time of Encounter: 16:32 - Assessment and plan (1) Bacteremia due to methicillin resistant Staphylococcus aureus Current Visit: Yes Status: Acute Assessment and plan: NEWTON tomorrow in a.m. Washout today. Complaints of breakthrough pain. Will switch NSAID to longer acting. Increase Percocet to 7.5 mg tabs. (2) Foot abscess, left Current Visit: Yes Status: Acute Assessment and plan: POD #1 s/p I&D and wound vac placement. Podiatry and ID following. (3) Cellulitis Current Visit: Yes Status: Acute Assessment and plan: Left plantar foot tenderness and edema. One out of 2 blood cultures drawn on January 29 grew MRSA. 2 sets of blood cultures from February 08 pending. 02/10/17 13:33: Incision and drainage and debridement of left foot, wound vac placement. Tolerated procedure without issue. Continue IV vancomycin. Qualifiers: Site of cellulitis: extremity Site of cellulitis of extremity: lower extremity Laterality: left Qualified Code(s): L03.116 - Cellulitis of left lower limb (4) DVT prophylaxis Current Visit: Yes Status: Acute (5) Hepatitis C Current Visit: Yes Status: Chronic Qualifiers: Viral hepatitis chronicity: chronic Hepatic coma status: without hepatic coma Qualified Code(s): B18.2 - Chronic viral hepatitis C (6) IV drug user Current Visit: Yes Status: Chronic - Subjective Interval history: He says today his pain is unbearable. No recent event to explain worsening pain. Requests increase strength of medications. - Constitutional Vitals: Temp Pulse Resp BP Pulse Ox 98 F 84 16 101/63 97 02/13/17 19:12 02/13/17 19:12 02/13/17 19:12 02/13/17 19:12 02/13/17 19:12 General appearance: Present: cooperative, A&O X 3, answers questions appropriately Exam: - Respiratory Respiratory exam: Present: CTAB. Absent: rales, respiratory distress, rhonchi, wheezes - Cardiovascular Cardiovascular exam: Present: RRR, +S1, +S2 - Extremities Exam Extremities exam: Present: pedal edema (Trace LLE), tenderness (left foot). Absent: joint swelling Additional comments: Left foot post-op dressing in place with TLS drain with a small amount of sanguinous drainage noted. - Back Exam Back exam: Present: normal inspection. Absent: paraspinal tenderness, vertebral tenderness - Neurological Exam Neurological exam: Present: alert, oriented X3, no focal deficits - Psychiatric Psychiatric exam: agitated - Skin Skin exam: Present: dry, intact, normal color, warm Internal Medicine: Result - Labs CBC & Chem 7: 02/13/17 03:43 02/13/17 03:43 Labs: Short CBC 02/13/17 Range/Units 03:43 WBC 4.4 (4.3-11.1) K/mcL Hgb 11.8 L (12.9-16.9) g/dL Hct 35.3 L (37.5-50.1) % Plt Count 211 (140-400) K/mcL Neutrophils # 2.7 (1.6-8.9) K/mcL BMP 02/13/17 03:43 Sodium 139 Potassium 4.3 Chloride 103 Carbon Dioxide 31 H BUN 11 Creatinine 0.77 Glucose 109 H Calcium 8.8 - ABG Interpretation ABG results: PT/INR, D-dimer PT 14.2 Seconds (9.4-12.1) H 02/09/17 00:26 - VTE Documentation of Mechanical Device: Intermittent pneumatic compression device Consult Discharge Plan - Plan Referrals: Antonette Coffey CNP [Advanced Practice Nurse] - 03/03/17 8:20 am NONE,PCP [Primary Care Provider] -
[2017-02-14] MEDS: *HR* OxyCODONE/APAP 7.5/325 TABLET PO PRN ×4 (00:28→21:43)
[2017-02-14] MEDS: *HR* Morphine 2 MG/ML SYRINGE IVP PRN ×2 (02:43→07:42)
[2017-02-14] MEDS: *HR* Heparin 5,000 UNIT/ML VIAL SQ SCH ×2 (05:48→17:24)
[2017-02-14] MEDS: Famotidine 20 MG/2 ML VIAL IVP SCH ×2 (05:48→17:24)
[2017-02-14 06:12] LABS: Eosinophils # 0.1 K/mcL (0.0-0.6); Hematocrit 35.5 % (37.5-50.1); Immature Granulocytes % 0.5 % (0-4); Lymphocytes # 1.6 K/mcL (0.6-4.6); Lymphocytes % 40.6 %; Mean Corpuscular HGB Conc 33.8 g/dL (31.6-35.5); Mean Corpuscular Hemoglobin 32.2 pg (28.0-33.3); Mean Corpuscular Volume 95.2 fL (83.0-100.0); Mean Platelet Volume 9.1 fL (9.4-12.4); Monocytes # 0.4 K/mcL (0.0-1.3); Neutrophils # 1.8 K/mcL (1.6-8.9); Platelet Count 205 K/mcL (140-400); Red Blood Count 3.73 M/mcL (4.19-5.50); Red Cell Distribution Width 13.6 % (11.5-14.5); Segmented Neutrophils % 45.9 %
[2017-02-14 06:24] LABS: BUN/Creatinine Ratio 16 (6-26); Blood Urea Nitrogen 13 mg/dL (8-26); Carbon Dioxide 29 mEq/L (19-29); Chloride 103 mEq/L (98-109); Glucose 107 mg/dL (70-99); Osmolality,Calculated 285 (280-300); Potassium 4.4 mEq/L (3.5-4.5); Sodium 137 mEq/L (136-145); eGFR For African Americans > 60 (> 60); eGFR For Non-African Americans > 60 (> 60)
[2017-02-14] MEDS: Nicotine 14 MG PATCH.TD24 TD SCH (07:42)
[2017-02-14] MEDS: Vancomycin 2,000 MG in D5% in Water 500 ML IVPB SCH (08:28)
[2017-02-14] MEDS ORDERED: *HR* Morphine 2 MG/ML SYRINGE IVP PRN (19:14)
[2017-02-14] MEDS: Vancomycin 1,750 MG in D5% in Water 500 ML IVPB SCH (19:28)
[2017-02-15] MEDS: *HR* Morphine 2 MG/ML SYRINGE IVP PRN ×5 (01:03→22:12)
[2017-02-15] MEDS: *HR* Heparin 5,000 UNIT/ML VIAL SQ SCH ×2 (06:33→17:36)
[2017-02-15] MEDS: Famotidine 20 MG/2 ML VIAL IVP SCH ×2 (06:33→17:35)
[2017-02-15 07:33] LABS: BUN/Creatinine Ratio 19 (6-26); Blood Urea Nitrogen 15 mg/dL (8-26); Calcium 9.4 mg/dL (8.6-10.8); Carbon Dioxide 27 mEq/L (19-29); Chloride 103 mEq/L (98-109); Glucose 100 mg/dL (70-99); Osmolality,Calculated 287 (280-300); Potassium 4.5 mEq/L (3.5-4.5); Sodium 138 mEq/L (136-145); eGFR For African Americans > 60 (> 60); eGFR For Non-African Americans > 60 (> 60)
[2017-02-15 08:21] LABS: Basophils % 0.8 %; Eosinophils # 0.1 K/mcL (0.0-0.6); Hematocrit 38.9 % (37.5-50.1); Hemoglobin 12.9 g/dL (12.9-16.9); Immature Granulocytes % 0.8 % (0-4); Lymphocytes # 1.7 K/mcL (0.6-4.6); Lymphocytes % 32.4 %; Mean Corpuscular HGB Conc 33.2 g/dL (31.6-35.5); Mean Corpuscular Hemoglobin 31.9 pg (28.0-33.3); Mean Corpuscular Volume 96.3 fL (83.0-100.0); Mean Platelet Volume 9.5 fL (9.4-12.4); Monocytes # 0.4 K/mcL (0.0-1.3); Monocytes % 6.9 %; Neutrophils # 2.9 K/mcL (1.6-8.9); Platelet Count 221 K/mcL (140-400); Red Blood Count 4.04 M/mcL (4.19-5.50); Red Cell Distribution Width 13.9 % (11.5-14.5); Segmented Neutrophils % 57.1 %
[2017-02-15] MEDS: *HR* OxyCODONE/APAP 7.5/325 TABLET PO PRN ×3 (08:29→20:29)
[2017-02-15] MEDS: Vancomycin 1,750 MG in D5% in Water 500 ML IVPB SCH ×2 (08:29→20:29)
[2017-02-15] MEDS: Nicotine 14 MG PATCH.TD24 TD SCH (08:30)
[2017-02-16] MEDS: *HR* OxyCODONE/APAP 7.5/325 TABLET PO PRN ×2 (04:17→10:38)
[2017-02-16 05:12] LABS: Basophils % 0.8 %; Eosinophils # 0.1 K/mcL (0.0-0.6); Eosinophils % 2.1 %; Hematocrit 38.2 % (37.5-50.1); Hemoglobin 12.5 g/dL (12.9-16.9); Immature Granulocytes % 0.8 % (0-4); Lymphocytes # 1.8 K/mcL (0.6-4.6); Lymphocytes % 36.8 %; Mean Corpuscular HGB Conc 32.7 g/dL (31.6-35.5); Mean Corpuscular Hemoglobin 31.4 pg (28.0-33.3); Mean Platelet Volume 9.5 fL (9.4-12.4); Monocytes # 0.5 K/mcL (0.0-1.3); Monocytes % 9.3 %; Neutrophils # 2.4 K/mcL (1.6-8.9); Platelet Count 198 K/mcL (140-400); Red Blood Count 3.98 M/mcL (4.19-5.50); Red Cell Distribution Width 13.9 % (11.5-14.5); Segmented Neutrophils % 50.2 %
[2017-02-16 05:22] LABS: BUN/Creatinine Ratio 22 (6-26); Blood Urea Nitrogen 19 mg/dL (8-26); Calcium 9.2 mg/dL (8.6-10.8); Carbon Dioxide 28 mEq/L (19-29); Chloride 103 mEq/L (98-109); Glucose 93 mg/dL (70-99); Osmolality,Calculated 290 (280-300); Potassium 4.6 mEq/L (3.5-4.5); Sodium 139 mEq/L (136-145); eGFR For African Americans > 60 (> 60); eGFR For Non-African Americans > 60 (> 60)
[2017-02-16] MEDS: *HR* Heparin 5,000 UNIT/ML VIAL SQ SCH ×2 (06:26→17:23)
[2017-02-16] MEDS: Famotidine 20 MG/2 ML VIAL IVP SCH ×2 (06:26→17:24)
[2017-02-16] MEDS: *HR* Morphine 2 MG/ML SYRINGE IVP PRN ×3 (07:59→16:27)
[2017-02-16] MEDS: Nicotine 14 MG PATCH.TD24 TD SCH (07:59)
[2017-02-16] MEDS: Vancomycin 1,750 MG in D5% in Water 500 ML IVPB SCH (07:59)
--- NOTE | 2017-02-16 10:30 | Infectious Disease Progress No ---
Date of Encounter: 02/16/17 Time of Encounter: 10:28 - Assessment and Plan (1) Bacteremia due to methicillin resistant Staphylococcus aureus Current Visit: Yes Status: Acute Causative organism: MRSA. Source likely the left foot infection. Blood cultures drawn 01/29/17 were positive 1/2 sets for MRSA. Uncomplicated, but the patient will likely require a prolonged course of IV antibiotics due to the extensive foot infection. He has one major and one minor Modified Snow's criteria. Repeat blood cultures drawn 02/08/17 are NGTD x 2 sets. TTE and NEWTON are negative for vegetations. Continue Vancomycin IV. Pharmacy to dose. Goal trough ~15. Duration of treatment depends on the clinical picture, likely 4-6 weeks given the extensive foot infection. Monitor renal function and for drug toxicity. (2) Foot abscess, left Current Visit: Yes Status: Acute Location: Left medial foot. Causative organism unclear, but likely MRSA given blood culture results. MRI of the left foot showed extensive diffuse soft tissue edema consistent with cellulitis. Intense myositis with severe tenosynovitis in multiple areas were noted. Additionally, there were findings concerning for abscess as well. Podiatry was consulted. States post left foot I & D 02/10/[address] Shields. Operative report reviewed. Extensive infection noted, but no evidence of bone involvement. The pus did penetrate the plantar fascia. Status post repeat washout 02/12/17. Operative note reviewed and no additional infection was noted. Continue Vancomycin IV. Pharmacy to dose. Goal trough ~15. Duration of treatment depends on the clinical picture, but likely 4 weeks of IV antibiotics. office services assistant to assist with discharge planning. Recommend ECF placement with patient's history of IVDU. Will need weekly CBC, BUN/Cr, ESR, CRP, and Vanc trough. Will need weekly PICC care. Follow up with ID two weeks post-discharge. (3) Left foot pain Current Visit: Yes Status: Acute Secondary to left foot abscess. Status post I & D 02/10/[address] Shields with repeat washout 02/12/17. Improved post-operatively. Pain management per the primary and podiatry teams. (4) IV drug user Current Visit: Yes Status: Chronic Reports last use of IV heroine about three weeks ago. Known Hep C positive. HIV negative. Withdraw management per the primary team recommendations. (5) Hepatitis C Current Visit: Yes Status: Chronic Qualifiers: Viral hepatitis chronicity: chronic Hepatic coma status: without hepatic coma Qualified Code(s): B18.2 - Chronic viral hepatitis C (6) Tobacco dependence Current Visit: Yes Status: Chronic - Subjective Interval history: Patient seen and examined. Weekend notes reviewed. No acute events noted. Status post left foot I & D 02/10/17 with repeat washout 02/12/17. States left foot pain is improved, but still pretty severe at times. Denies fevers, chills, rigors. Denies headache or neck pain. Denies chest pain, shortness of breath, or cough. Denies nausea, vomiting, diarrhea, constipation, or abdominal pain. Denies urinary complaints and states his appetite is good. Denies oral thrush or new skin lesions. Infect Dis PN-Objective Data - Labs CBC & Chem 7: 02/16/17 04:20 02/16/17 04:20 Labs: Laboratory Results - last 24 hr 02/16/17 02/16/17 02/16/17 04:20 04:20 06:30 WBC 4.8 RBC 3.98 L Hgb 12.5 L Hct 38.2 MCV 96.0 MCH 31.4 MCHC 32.7 RDW 13.9 Plt Count 198 MPV 9.5 Immature Gran % 0.8 Seg Neutrophils % 50.2 Lymphocytes % 36.8 Monocytes % 9.3 Eosinophils % 2.1 Basophils % 0.8 Neutrophils # 2.4 Lymphocytes # 1.8 Monocytes # 0.5 Eosinophils # 0.1 Basophils # 0.0 Sodium 139 Potassium 4.6 H Chloride 103 Carbon Dioxide 28 BUN 19 Creatinine 0.87 Est GFR ( Amer) > 60 Est GFR (Non-Af Amer) > 60 BUN/Creatinine Ratio 22 Glucose 93 Calculated Osmolality 290 Calcium 9.2 Vancomycin Trough 19.9 Cultures: Cultures 02/10/17 13:07 Anaerobic Culture - Final Left Foot No anaerobes were recovered. 02/08/17 22:57 Blood Culture - Final Peripheral Venipuncture No growth. 02/08/17 21:51 Blood Culture - Final Peripheral Venipuncture No growth. 02/10/17 13:07 Wound Culture - Final Left Foot Methicillin Resistant S.aureus Serology 02/09/17 Range/Units 17:27 HIV Ag/Ab Combo Qual Nonreactive (Nonreactive) Exam - Constitutional Vitals: Temp Pulse Resp BP Pulse Ox 98.5 F 87 18 114/76 99 02/16/17 06:38 02/16/17 06:38 02/16/17 06:38 02/16/17 06:38 02/16/17 06:38 General appearance: average body habitus, cooperative, no acute distress - Head Head exam: Present: atraumatic, normal inspection, normocephalic - Eye Eye exam: Present: EOMI, normal appearance, PERRL Pupils: Present: normal accommodation - ENT ENT exam: Present: mucous membranes moist - Neck Neck exam: Present: normal inspection - Respiratory Respiratory exam: Present: CTAB. Absent: rales, respiratory distress, rhonchi, wheezes - Cardiovascular Cardiovascular exam: Present: RRR, +S1, +S2 - GI/Abdominal GI/Abdominal exam: Present: normal bowel sounds, soft. Absent: distended, tenderness - Extremities Exam Extremities exam: Present: tenderness (left foot). Absent: pedal edema Additional comments: Left foot dressing C/D/I with TLS drain with small amount of bloody drainage. - Neurological Exam Neurological exam: Present: alert, oriented X3, no focal deficits - Psychiatric Psychiatric exam: Present: normal affect, normal mood - Skin Skin exam: Present: dry, intact, normal color, warm - VTE Documentation of Mechanical Device: Intermittent pneumatic compression device Consult Discharge Plan - Plan Referrals: Antonette Coffey SENIOR CAREGIVER [Advanced Practice Nurse] - 03/03/17 8:20 am NONE,PCP [Primary Care Provider] -
--- NOTE | 2017-02-16 17:11 | Podiatry Progress Note ---
Date of Encounter: 02/16/17 Time of Encounter: 16:45 - Assessment and Plan (1) Foot abscess, left Current Visit: Yes Status: Acute Assessment: Patient is status post I&D and debridement multiple areas left foot by Dr. Shields on 02/10/2017 with application of wound VAC. Washout to left foot with closure on 02/02/17 Dressing dry and intact with TLS drain intact, 4 cc of serosanguineous drainage observed to tube. Incision line well approximated, healing uneventfully. Wound Cultures isolated MRSA. WBC: 4.8 Temp: 98.1 Plan: Dressing changed at bedside, TLS drain removed with out difficulty. Patient states less pain after TLS drain was removed. Infectious Disease following, receiving IV Vancomycin, most likely 4 weeks total. Awaiting ECF acceptance. Non weight bearing to LLE. F/u in Podiatry one week of discharge from hospital. Subjective Interval history: Patient is status post I&D and debridement multiple areas left foot by Dr. Shields on 02/10/2017 with application of wound VAC, s/p washout on 02/12/17. Patient is lying in bed with dressing dry and intact with TLS drain. Patient states left foot is painful. No c/o of fever chills, or calf pain. Awaiting ECF acceptance. Objective - Vital Signs Vital Signs: Vital Signs Temp Pulse Resp BP Pulse Ox 02/16/17 16:10 98.1 F 88 18 112/76 99 02/16/17 09:54 98.4 F 93 16 118/67 99 02/16/17 06:38 98.5 F 87 18 114/76 99 02/16/17 04:01 98.3 F 85 17 118/75 98 02/16/17 00:15 98.2 F 87 19 115/70 97 02/15/17 20:52 98.0 F 95 20 115/75 97 Intake and Output 02/16/17 02/16/17 02/16/17 07:59 15:59 23:59 Intake Total 240 / 240 500 / 500 Output Total 1500 / 1500 605 / 605 Balance -1260 / -1260 -105 / -105 Intake: IV Fluids 500 / 500 Vancocin 1,750 MG In Dextrose 5 500 / 500 % 500 ML @ 333.333 mls/hr IVPB Q12H [facility] Rx#:[id number] Oral 240 / 240 Output: Urine 1500 / 1500 600 / 600 Wound Drainage 5 / 5 Left Foot 5 / 5 - Exam Exam: General appearance: alert awake oriented X 3. Calm and pleasant, no acute distress.. Vascular: Pedal pulses +2/4 DP/PT , No evidence of cyanosis, pallor or rubor, Edema graded at 1+/4, Skin Tempature warm, No calf pain with manual compression. capillary refill time is immediate to digits. Neurologic: Sensation intact with light touch to foot. . Postop Exam: S/P Sutures intact to incision line, no signs of dehiscence. TLS drain intact with 4 cc of serosanguineous drainage observed to tube, no open area, no odor, no erythema, no streaking, no pus, no fluctuance. Minimal edema. - Lab Result Diagrams: 02/16/17 04:20 02/16/17 04:20 Labs: Abnormal lab results RBC 3.98 M/mcL (4.19-5.50) L 02/16/17 04:20 Hgb 12.5 g/dL (12.9-16.9) L 02/16/17 04:20 PT 14.2 Seconds (9.4-12.1) H 02/09/17 00:26 Potassium 4.6 mEq/L (3.5-4.5) H 02/16/17 04:20 Microbiology, Last 48 Hours 02/10/17 13:07 Anaerobic Culture - Final Left Foot No anaerobes were recovered. - VTE Documentation of Mechanical Device: Intermittent pneumatic compression device Consult Discharge Plan - Plan Referrals: Antonette Coffey, FINISHING DEPARTMENT SUPERVISOR [Advanced Practice Nurse] - 03/03/17 8:20 am NONE,PCP [Primary Care Provider] -
[2017-02-16] MEDS: *HR* HYDROcodone/Acet 5/325 mg TABLET PO PRN (21:31)
[2017-02-17] MEDS: Vancomycin 1,250 MG in D5% in Water 250 ML IVPB SCH ×3 (00:48→22:31)
[2017-02-17] MEDS: *HR* Morphine 2 MG/ML SYRINGE IVP SCH ×2 (00:49→04:42)
[2017-02-17] MEDS: Famotidine 20 MG/2 ML VIAL IVP SCH ×2 (04:42→17:44)
[2017-02-17] MEDS: *HR* Heparin 5,000 UNIT/ML VIAL SQ SCH ×2 (04:42→17:44)
--- NOTE | 2017-02-17 05:35 | Internal Med Progress Note ---
Date of Encounter: 02/14/17 Time of Encounter: 13:00 - Assessment and plan (1) Bacteremia due to methicillin resistant Staphylococcus aureus Current Visit: Yes Status: Acute Assessment and plan: Patient is being set up for discharge to [facility]. Weekend limits disposition (2) Foot abscess, left Current Visit: Yes Status: Acute Assessment and plan: POD #1 s/p I&D and wound vac placement. Podiatry and ID following. (3) Cellulitis Current Visit: Yes Status: Acute Qualifiers: Site of cellulitis: extremity Site of cellulitis of extremity: lower extremity Laterality: left Qualified Code(s): L03.116 - Cellulitis of left lower limb (4) DVT prophylaxis Current Visit: Yes Status: Acute (5) Hepatitis C Current Visit: Yes Status: Chronic Qualifiers: Viral hepatitis chronicity: chronic Hepatic coma status: without hepatic coma Qualified Code(s): B18.2 - Chronic viral hepatitis C (6) IV drug user Current Visit: Yes Status: Chronic - Subjective Interval history: Patient resting comfortably. States post wash out improving but still would like stronger pain medication. - Constitutional Vitals: Temp Pulse Resp BP Pulse Ox 97.9 F 81 18 113/71 97 02/17/17 05:00 02/17/17 05:00 02/17/17 05:00 02/17/17 05:00 02/17/17 05:00 General appearance: Present: cooperative, A&O X 3, answers questions appropriately Exam: CVS: RRR Lungs: CTAB L foot: in wrap, drain with serosanguineous fluid. Toes are pink and warm, good cap refill time, normal sensation Internal Medicine: Result - Labs CBC & Chem 7: 02/16/17 04:20 02/16/17 04:20 - ABG Interpretation ABG results: PT/INR, D-dimer PT 14.2 Seconds (9.4-12.1) H 02/09/17 00:26 - VTE Documentation of Mechanical Device: Intermittent pneumatic compression device Consult Discharge Plan - Plan Referrals: Antonette Coffey SILVER PLATER [Advanced Practice Nurse] - 03/03/17 8:20 am NONE,PCP [Primary Care Provider] -
--- NOTE | 2017-02-17 05:41 | Internal Med Progress Note ---
Date of Encounter: 02/15/17 Time of Encounter: 12:00 - Assessment and plan (1) Bacteremia due to methicillin resistant Staphylococcus aureus Current Visit: Yes Status: Acute Assessment and plan: Patient is being set up for discharge to [facility]. Weekend limits disposition (2) Foot abscess, left Current Visit: Yes Status: Acute (3) Cellulitis Current Visit: Yes Status: Acute Qualifiers: Site of cellulitis: extremity Site of cellulitis of extremity: lower extremity Laterality: left Qualified Code(s): L03.116 - Cellulitis of left lower limb (4) DVT prophylaxis Current Visit: Yes Status: Acute (5) Hepatitis C Current Visit: Yes Status: Chronic Qualifiers: Viral hepatitis chronicity: chronic Hepatic coma status: without hepatic coma Qualified Code(s): B18.2 - Chronic viral hepatitis C (6) IV drug user Current Visit: Yes Status: Chronic - Subjective Interval history: Patient resting comfortably. Foot continues to improve - Constitutional Vitals: Temp Pulse Resp BP Pulse Ox 97.9 F 81 18 113/71 97 02/17/17 05:00 02/17/17 05:00 02/17/17 05:00 02/17/17 05:00 02/17/17 05:00 General appearance: Present: cooperative, A&O X 3, answers questions appropriately Exam: CVS: RRR Lungs: CTAB L foot: in wrap, drain with serosanguineous fluid. Toes are pink and warm, good cap refill time, normal sensation Internal Medicine: Result - Labs CBC & Chem 7: 02/16/17 04:20 02/16/17 04:20 - ABG Interpretation ABG results: PT/INR, D-dimer PT 14.2 Seconds (9.4-12.1) H 02/09/17 00:26 - VTE Documentation of Mechanical Device: Intermittent pneumatic compression device Consult Discharge Plan - Plan Referrals: Antonette Coffey CNP [Advanced Practice Nurse] - 03/03/17 8:20 am NONE,PCP [Primary Care Provider] -
--- NOTE | 2017-02-17 05:44 | Internal Med Progress Note ---
Date of Encounter: 02/16/17 Time of Encounter: 12:45 - Assessment and plan (1) Foot abscess, left Current Visit: Yes Status: Acute Assessment and plan: s/p I&D and washout. Pending ECF placement to complete treatment with IV Vancomycin. (2) Bacteremia due to methicillin resistant Staphylococcus aureus Current Visit: Yes Status: Acute Assessment and plan: Continue Vancomycin Patient is being set up for discharge to ECF. (3) Cellulitis Current Visit: Yes Status: Acute Qualifiers: Site of cellulitis: extremity Site of cellulitis of extremity: lower extremity Laterality: left Qualified Code(s): L03.116 - Cellulitis of left lower limb (4) DVT prophylaxis Current Visit: Yes Status: Acute (5) Hepatitis C Current Visit: Yes Status: Chronic Qualifiers: Viral hepatitis chronicity: chronic Hepatic coma status: without hepatic coma Qualified Code(s): B18.2 - Chronic viral hepatitis C (6) IV drug user Current Visit: Yes Status: Chronic - Subjective Interval history: Patient resting comfortably. Observed during dressing change, patient exhibits minimal discomfort during dressing change. - Constitutional Vitals: Temp Pulse Resp BP Pulse Ox 97.9 F 81 18 113/71 97 02/17/17 05:00 02/17/17 05:00 02/17/17 05:00 02/17/17 05:00 02/17/17 05:00 General appearance: Present: cooperative, A&O X 3, answers questions appropriately Exam: CVS: RRR Lungs: CTAB L foot: drain no longer present. Well healed incisions on plantar surface of foot. Edema of left foot significantly improved. Internal Medicine: Result - Labs CBC & Chem 7: 02/16/17 04:20 02/16/17 04:20 - ABG Interpretation ABG results: PT/INR, D-dimer PT 14.2 Seconds (9.4-12.1) H 02/09/17 00:26 - VTE Documentation of Mechanical Device: Intermittent pneumatic compression device Consult Discharge Plan - Plan Referrals: Antonette Coffey ADMINISTRATIVE SUPPORT COORDINATOR [Advanced Practice Nurse] - 03/03/17 8:20 am NONE,PCP [Primary Care Provider] -
[2017-02-17 05:50] LABS: Basophils % 0.8 %; Eosinophils # 0.1 K/mcL (0.0-0.6); Eosinophils % 1.9 %; Hematocrit 39.1 % (37.5-50.1); Hemoglobin 12.9 g/dL (12.9-16.9); Immature Granulocytes % 0.8 % (0-4); Lymphocytes # 1.7 K/mcL (0.6-4.6); Lymphocytes % 35.1 %; Mean Corpuscular Hemoglobin 31.9 pg (28.0-33.3); Mean Corpuscular Volume 96.5 fL (83.0-100.0); Mean Platelet Volume 9.9 fL (9.4-12.4); Monocytes # 0.5 K/mcL (0.0-1.3); Monocytes % 9.7 %; Neutrophils # 2.5 K/mcL (1.6-8.9); Platelet Count 185 K/mcL (140-400); Red Blood Count 4.05 M/mcL (4.19-5.50); Red Cell Distribution Width 14.2 % (11.5-14.5); Segmented Neutrophils % 51.7 %
[2017-02-17 06:00] LABS: BUN/Creatinine Ratio 21 (6-26); Blood Urea Nitrogen 16 mg/dL (8-26); Calcium 9.3 mg/dL (8.6-10.8); Carbon Dioxide 27 mEq/L (19-29); Chloride 103 mEq/L (98-109); Glucose 86 mg/dL (70-99); Osmolality,Calculated 288 (280-300); Potassium 4.6 mEq/L (3.5-4.5); Sodium 139 mEq/L (136-145); eGFR For African Americans > 60 (> 60); eGFR For Non-African Americans > 60 (> 60)
[2017-02-17] MEDS: Nicotine 14 MG PATCH.TD24 TD SCH (09:15)
[2017-02-17] MEDS: *HR* HYDROcodone/Acet 5/325 mg TABLET PO PRN ×2 (09:15→17:45)
[2017-02-17] MEDS: *HR* Morphine 2 MG/ML SYRINGE IVP PRN ×3 (10:59→20:27)
--- NOTE | 2017-02-17 14:11 | Podiatry Progress Note ---
Date of Encounter: 02/17/17 Time of Encounter: 13:50 - Assessment and Plan (1) Foot abscess, left Current Visit: Yes Status: Acute Assessment: Patient is status post I&D and debridement multiple areas left foot by Dr. Shields on 02/10/2017 with application of wound VAC. Washout to left foot with closure on 02/02/17 Incision line well approximated, healing uneventfully. Wound Cultures isolated MRSA. WBC: 4.8 Temp: 98.4 Plan: Dressing changed at bedside, incision line irrigated with saline, adaptic, 4x4 gauze applied with kerlix and tape. Infectious Disease following, receiving IV Vancomycin, most likely 4 weeks total. Awaiting ECF acceptance. Non weight bearing to LLE. PT/OT consulted ordered. F/u in Podiatry one week of discharge from hospital. Subjective Interval history: Patient is status post I&D and debridement multiple areas left foot by Dr. Shields on 02/10/2017 with application of wound VAC, s/p washout on 02/12/17. Patient is lying in bed with dressing dry and intact. Patient states left foot is painful, but feeling better since the drain was removed. No c/o of fever chills, or calf pain. Awaiting ECF acceptance. Objective - Vital Signs Vital Signs: Vital Signs Temp Pulse Resp BP Pulse Ox 02/17/17 11:07 98.4 F 98 15 126/80 100 02/17/17 07:53 98.2 F 97 15 115/72 98 02/17/17 05:00 97.9 F 81 18 113/71 97 02/17/17 00:56 98.0 F 88 18 117/79 99 02/16/17 20:29 97.8 F 91 18 119/69 98 02/16/17 16:10 98.1 F 88 18 112/76 99 Intake and Output 02/16/17 02/17/17 02/17/17 23:59 07:59 15:59 Intake Total 490 / 490 1090 / 1090 Output Total 850 / 850 1200 / 1200 Balance -850 / -850 -710 / -710 1090 / 1090 Intake: IV Fluids 250 / 250 250 / 250 Vancocin 1,250 MG In Dextrose 5 250 / 250 250 / 250 % 250 ML @ 166.67 mls/hr IVPB Q12H [facility] Rx#:[id number] Oral 240 / 240 840 / 840 Output: Urine 850 / 850 1200 / 1200 Other: Meal Breakfast Percent of Meal Consumed 100% Weight 88.7 kg Patient Weight 02/17/17 23:59 Weight 88.7 kg - Exam Exam: General appearance: alert awake oriented X 3. Calm and pleasant, no acute distress.. Vascular: Pedal pulses +2/4 DP/PT , No evidence of cyanosis, pallor or rubor, Edema graded at 1+/4, Skin Temperature warm, No calf pain with manual compression. capillary refill time is immediate to digits. Postop Exam: S/P Sutures intact to incision line, no signs of dehiscence. No open area, no odor, no erythema, no streaking, no pus, no fluctuance. Minimal edema. - Lab Result Diagrams: 02/17/17 04:35 02/17/17 04:35 Labs: Abnormal lab results RBC 4.05 M/mcL (4.19-5.50) L 02/17/17 04:35 PT 14.2 Seconds (9.4-12.1) H 02/09/17 00:26 Potassium 4.6 mEq/L (3.5-4.5) H 02/17/17 04:35 Microbiology, Last 48 Hours 02/10/17 13:07 Anaerobic Culture - Final Left Foot No anaerobes were recovered. - VTE Documentation of Mechanical Device: Intermittent pneumatic compression device Consult Discharge Plan - Plan Referrals: Antonette Coffey, PROGRAM DIRECTOR AIR TALENT [Advanced Practice Nurse] - 03/03/17 8:20 am NONE,PCP [Primary Care Provider] -
--- NOTE | 2017-02-17 14:16 | Infectious Disease Progress No ---
Date of Encounter: 02/17/17 Time of Encounter: 14:13 - Assessment and Plan (1) Bacteremia due to methicillin resistant Staphylococcus aureus Current Visit: Yes Status: Acute Causative organism: MRSA. Source likely the left foot infection. Blood cultures drawn 01/29/17 were positive 1/2 sets for MRSA. Uncomplicated, but the patient will likely require a prolonged course of IV antibiotics due to the extensive foot infection. He has one major and one minor Modified Snow's criteria. Repeat blood cultures drawn 02/08/17 are negative x 2 sets. TTE and NEWTON are negative for vegetations. Continue Vancomycin IV. Pharmacy to dose. Goal trough ~15. Duration of treatment depends on the clinical picture, likely 4-6 weeks given the extensive foot infection. Monitor renal function and for drug toxicity. (2) Foot abscess, left Current Visit: Yes Status: Acute Location: Left medial foot. Causative organism unclear, but likely MRSA given blood culture results. MRI of the left foot showed extensive diffuse soft tissue edema consistent with cellulitis. Intense myositis with severe tenosynovitis in multiple areas were noted. Additionally, there were findings concerning for abscess as well. Podiatry was consulted. States post left foot I & D 02/10/[address] Shields. Operative report reviewed. Extensive infection noted, but no evidence of bone involvement. The pus did penetrate the plantar fascia. Status post repeat washout 02/12/17. Operative note reviewed and no additional infection was noted. Continue Vancomycin IV. Pharmacy to dose. Goal trough ~15. Duration of treatment depends on the clinical picture, but likely 4 weeks of IV antibiotics. support services manager to assist with discharge planning. Recommend ECF placement with patient's history of IVDU. Will need weekly CBC, BUN/Cr, ESR, CRP, and Vanc trough. Will need weekly PICC care. Follow up with ID 03/03/17 at 0820. (3) Left foot pain Current Visit: Yes Status: Acute Secondary to left foot abscess. Status post I & D 02/10/[address] Shields with repeat washout 02/12/17. Improved post-operatively. Pain management per the primary and podiatry teams. (4) IV drug user Current Visit: Yes Status: Chronic Reports last use of IV heroine about three weeks ago. Known Hep C positive. HIV negative. Withdraw management per the primary team recommendations. (5) Hepatitis C Current Visit: Yes Status: Chronic Qualifiers: Qualified Code(s): B18.2 - Chronic viral hepatitis C (6) Tobacco dependence Current Visit: Yes Status: Chronic - Subjective Interval history: Patient seen and examined. No acute events noted overnight. Status post left foot I & D 02/10/17 with repeat washout 02/12/17. States left foot pain is improved since having the TLS drain removed yesterday, but he continues to have some pain in the left foot that radiates up the lower part of his leg. Denies fevers, chills, rigors. Denies headache or neck pain. Denies chest pain, shortness of breath, or cough. Denies nausea, vomiting, diarrhea, constipation, or abdominal pain. Denies urinary complaints and states his appetite is good. Denies oral thrush or new skin lesions. Infect Dis PN-Objective Data - Labs CBC & Chem 7: 02/17/17 04:35 02/17/17 04:35 Labs: Laboratory Results - last 24 hr 02/17/17 02/17/17 04:35 04:35 WBC 4.8 RBC 4.05 L Hgb 12.9 Hct 39.1 MCV 96.5 MCH 31.9 MCHC 33.0 RDW 14.2 Plt Count 185 MPV 9.9 Immature Gran % 0.8 Seg Neutrophils % 51.7 Lymphocytes % 35.1 Monocytes % 9.7 Eosinophils % 1.9 Basophils % 0.8 Neutrophils # 2.5 Lymphocytes # 1.7 Monocytes # 0.5 Eosinophils # 0.1 Basophils # 0.0 Sodium 139 Potassium 4.6 H Chloride 103 Carbon Dioxide 27 BUN 16 Creatinine 0.78 Est GFR ( Amer) > 60 Est GFR (Non-Af Amer) > 60 BUN/Creatinine Ratio 21 Glucose 86 Calculated Osmolality 288 Calcium 9.3 Cultures: Cultures 02/10/17 13:07 Anaerobic Culture - Final Left Foot No anaerobes were recovered. 02/08/17 22:57 Blood Culture - Final Peripheral Venipuncture No growth. 02/08/17 21:51 Blood Culture - Final Peripheral Venipuncture No growth. 02/10/17 13:07 Wound Culture - Final Left Foot Methicillin Resistant S.aureus Serology 02/09/17 Range/Units 17:27 HIV Ag/Ab Combo Qual Nonreactive (Nonreactive) Exam - Constitutional Vitals: Temp Pulse Resp BP Pulse Ox 98.4 F 98 15 126/80 100 02/17/17 11:07 02/17/17 11:07 02/17/17 11:07 02/17/17 11:07 02/17/17 11:07 General appearance: average body habitus, cooperative, no acute distress - Head Head exam: Present: atraumatic, normal inspection, normocephalic - Eye Eye exam: Present: EOMI, normal appearance, PERRL Pupils: Present: normal accommodation - ENT ENT exam: Present: mucous membranes moist - Neck Neck exam: Present: normal inspection - Respiratory Respiratory exam: Present: CTAB. Absent: rales, respiratory distress, rhonchi, wheezes - Cardiovascular Cardiovascular exam: Present: RRR, +S1, +S2 - GI/Abdominal GI/Abdominal exam: Present: normal bowel sounds, soft. Absent: distended, tenderness - Extremities Exam Extremities exam: Present: normal inspection, tenderness (left foot). Absent: joint swelling, pedal edema Additional comments: Left foot dressing C/D/I. - Neurological Exam Neurological exam: Present: alert, oriented X3, no focal deficits - Psychiatric Psychiatric exam: Present: normal affect, normal mood - Skin Skin exam: Present: dry, intact, normal color, warm - VTE Documentation of Mechanical Device: Intermittent pneumatic compression device Consult Discharge Plan - Plan Referrals: Antonette Coffey CNP [Advanced Practice Nurse] - 03/03/17 8:20 am NONE,PCP [Primary Care Provider] -
--- NOTE | 2017-02-17 18:00 | Internal Med Progress Note ---
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 place (2) Bacteremia due to methicillin resistant Staphylococcus aureus Current Visit: Yes Status: Acute Assessment and plan: Continue IV Vancomycin for 4-6 weeks ID following Anticipated discharge to ECF soon (3) IV drug user Current Visit: Yes Status: Chronic Assessment and plan: Monitor for withdrawal, counseled about cessation Cautious use of IV opiates PRN Oxycodone and NSAIDs for pain control (4) Tobacco dependence Current Visit: Yes Status: Chronic Assessment and plan: Counseled about cessation, nicotine patch (5) Hepatitis C Current Visit: Yes Status: Chronic Assessment and plan: History of hepatitis C, probably due to IV drug use Follow-up with GI as outpatient Qualifiers: Viral hepatitis chronicity: chronic Hepatic coma status: without hepatic coma Qualified Code(s): B18.2 - Chronic viral hepatitis C (6) DVT prophylaxis Current Visit: Yes Status: Acute Assessment and plan: Continue heparin subcutaneous - Time Spent With Patient 25 - 35 minutes - Subjective Interval history: Examined this morning. Patient is awake and alert. Not in any distress. Tolerating oral diet well. Hemodynamically stable. Denies chest pain or shortness of breath. No fever. Admitted for left foot abscess and bacteremia due to MRSA. Patient will need discharge to ECF for long-term IV antibiotics via PICC line. No other acute events or complaints at this time. - Constitutional Vitals: Temp Pulse Resp BP Pulse Ox 97.9 F 111 14 112/79 97 02/17/17 16:23 02/17/17 16:23 02/17/17 16:23 02/17/17 16:23 02/17/17 16:23 General appearance: Present: cooperative, A&O X 3, pleasant, no acute distress, answers questions appropriately - Head Head exam: Present: atraumatic - Eye Eye exam: Present: EOMI - ENT ENT exam: Present: mucous membranes moist - Respiratory Respiratory exam: Present: CTAB. Absent: rales, rhonchi, wheezes, tachypnea - Cardiovascular Cardiovascular exam: Present: RRR, +S1, +S2 - GI/Abdominal GI/Abdominal exam: Present: soft. Absent: distended, firm, guarding, tenderness - Extremities Exam Extremities exam: Present: radial pulses palpable and symmetrical. Absent: calf tenderness, cyanotic, pedal edema Additional comments: Left foot dressing intact, no discharge. - Neurological Exam Neurological exam: Present: alert, oriented X3, no focal deficits. Absent: facial droop, speech deficit Internal Medicine: Result - Labs CBC & Chem 7: 02/17/17 04:35 02/17/17 04:35 Labs: Short CBC 02/17/17 Range/Units 04:35 WBC 4.8 (4.3-11.1) K/mcL Hgb 12.9 (12.9-16.9) g/dL Hct 39.1 (37.5-50.1) % Plt Count 185 (140-400) K/mcL Neutrophils # 2.5 (1.6-8.9) K/mcL BMP 02/17/17 04:35 Sodium 139 Potassium 4.6 H Chloride 103 Carbon Dioxide 27 BUN 16 Creatinine 0.78 Glucose 86 Calcium 9.3 - ABG Interpretation ABG results: PT/INR, D-dimer PT 14.2 Seconds (9.4-12.1) H 02/09/17 00:26 - VTE Documentation of Mechanical Device: Intermittent pneumatic compression device Consult Discharge Plan - Plan Referrals: Antonette Cfofey, VALVE PIPE IRRIGATOR [Advanced Practice Nurse] - 03/03/17 8:20 am NONE,PCP [Primary Care Provider] -
[2017-02-18] MEDS: *HR* Morphine 2 MG/ML SYRINGE IVP PRN ×3 (01:42→09:55)
[2017-02-18] MEDS: *HR* HYDROcodone/Acet 5/325 mg TABLET PO PRN ×4 (04:24→23:00)
[2017-02-18] MEDS: Famotidine 20 MG/2 ML VIAL IVP SCH (04:24)
[2017-02-18] MEDS: *HR* Heparin 5,000 UNIT/ML VIAL SQ SCH ×2 (04:27→18:24)
[2017-02-18 04:32] LABS: Basophils # 0.1 K/mcL (0.0-0.2); Eosinophils # 0.1 K/mcL (0.0-0.6); Eosinophils % 2.5 %; Hematocrit 39.6 % (37.5-50.1); Hemoglobin 13.2 g/dL (12.9-16.9); Immature Granulocytes % 0.6 % (0-4); Lymphocytes # 1.6 K/mcL (0.6-4.6); Lymphocytes % 31.3 %; Mean Corpuscular HGB Conc 33.3 g/dL (31.6-35.5); Mean Corpuscular Hemoglobin 31.7 pg (28.0-33.3); Mean Platelet Volume 9.3 fL (9.4-12.4); Monocytes # 0.5 K/mcL (0.0-1.3); Monocytes % 9.8 %; Neutrophils # 2.8 K/mcL (1.6-8.9); Platelet Count 188 K/mcL (140-400); Red Blood Count 4.17 M/mcL (4.19-5.50); Red Cell Distribution Width 14.2 % (11.5-14.5); Segmented Neutrophils % 54.8 %
[2017-02-18 04:58] LABS: BUN/Creatinine Ratio 17 (6-26); Blood Urea Nitrogen 14 mg/dL (8-26); Calcium 9.2 mg/dL (8.6-10.8); Carbon Dioxide 26 mEq/L (19-29); Chloride 102 mEq/L (98-109); Glucose 125 mg/dL (70-99); Osmolality,Calculated 284 (280-300); Potassium 4.4 mEq/L (3.5-4.5); Sodium 136 mEq/L (136-145); eGFR For African Americans > 60 (> 60); eGFR For Non-African Americans > 60 (> 60)
[2017-02-18] MEDS: Nicotine 14 MG PATCH.TD24 TD SCH (09:55)
[2017-02-18] MEDS: Vancomycin 1,250 MG in D5% in Water 250 ML IVPB SCH (11:10)
--- NOTE | 2017-02-18 13:35 | Podiatry Progress Note ---
Date of Encounter: 02/18/17 Time of Encounter: 12:30 - Assessment and Plan (1) Foot abscess, left Current Visit: Yes Status: Acute Assessment: Patient is status post I&D and debridement multiple areas left foot by Dr. Shields on 02/10/2017 with application of wound VAC. Washout to left foot with closure on 02/02/17 Incision line well approximated, healing uneventfully. Wound Cultures isolated MRSA. WBC: 5.2 Temp: 98.5 Plan: Dressing changed at bedside, incision line irrigated with saline, adaptic, 4x4 gauze applied with kerlix and tape. Infectious Disease following, receiving IV Vancomycin, most likely 4 weeks total. Awaiting ECF acceptance. Recommend ECF placement upon discharge due to history of IV drug abuse. Non weight bearing to LLE. PT/OT evaluated patient today. No skilled PT services needed. F/u in Podiatry one week of discharge from hospital. Subjective Interval history: Patient is status post I&D and debridement multiple areas left foot by Dr. Shields on 02/10/2017 with application of wound VAC, s/p washout on 02/12/17. Patient is sitting up in chair with dressing dry and intact to the left foot. Patient states left foot is painful, but feeling better since the drain was removed. No c/o of fever chills, or calf pain. Awaiting ECF acceptance. Patient states he does not want to go to a chcf. Objective - Vital Signs Vital Signs: Vital Signs Temp Pulse Resp BP Pulse Ox 02/18/17 10:11 98.2 F 87 18 129/84 97 02/18/17 06:25 98.5 F 98 16 127/86 95 02/18/17 01:43 98.8 F 100 17 130/84 96 02/17/17 20:25 98.7 F 79 19 133/83 96 02/17/17 16:23 97.9 F 111 14 112/79 97 Intake and Output 02/17/17 02/18/17 02/18/17 23:59 07:59 15:59 Intake Total 600 / 600 800 / 800 600 / 600 Output Total 750 / 750 550 / 550 Balance -150 / -150 800 / 800 50 / 50 Intake: IV Fluids 250 / 250 Vancocin 1,250 MG In Dextrose 5 250 / 250 % 250 ML @ 166.67 mls/hr IVPB Q12H [facility] Rx#:[id number] Oral 600 / 600 800 / 800 350 / 350 Output: Urine 750 / 750 550 / 550 Other: Meal Dinner Lunch Percent of Meal Consumed 100% 90% # Voids 3 - Exam Exam: General appearance: alert awake oriented X 3. Calm and pleasant, no acute distress.. Vascular: Pedal pulses +2/4 DP/PT , No evidence of cyanosis, pallor or rubor, Edema graded at 1+/4, Skin Temperature warm, No calf pain with manual compression. capillary refill time is immediate to digits. Postop Exam: S/P Sutures intact to incision line, no signs of dehiscence. Light periwound erythema, no open area, no odor, no streaking, no pus, no fluctuance. Minimal edema. - Lab Result Diagrams: 02/18/17 04:20 02/18/17 04:20 Labs: Abnormal lab results RBC 4.17 M/mcL (4.19-5.50) L 02/18/17 04:20 MPV 9.3 fL (9.4-12.4) L 02/18/17 04:20 PT 14.2 Seconds (9.4-12.1) H 02/09/17 00:26 Glucose 125 mg/dL (70-99) H 02/18/17 04:20 - VTE Documentation of Mechanical Device: Intermittent pneumatic compression device Consult Discharge Plan - Plan Referrals: Antonette Coffey ORTHOPEDICS NURSE [Advanced Practice Nurse] - 03/03/17 8:20 am NONE,PCP [Primary Care Provider] -
--- NOTE | 2017-02-18 15:47 | Internal Med Progress Note ---
Date of Encounter: 02/18/17 Time of Encounter: 16:35 - Assessment and plan (1) Osteomyelitis Current Visit: No Status: Suspected Qualifiers: Osteomyelitis type: other acute Osteomyelitis location: foot Laterality: left Qualified Code(s): M86.172 - Other acute osteomyelitis, left ankle and foot (2) Tobacco dependence Current Visit: Yes Status: Chronic (3) Left foot pain Current Visit: Yes Status: Acute Assessment and plan: For now will discontinue IV morphine. No evidence of distress. Complain outwait patient presentation. His staff mentioned that he is sleeping a lot. For now will keep him on [place] as needed discontinue morphine cutback on pain medication as tolerated may consider adding Neurontin, Cymbalta - Subjective Interval history: Patient denies any chest pain or trouble breathing. Patient complain of left foot pain controlled with current pain medication - Constitutional Vitals: Temp Pulse Resp BP Pulse Ox 98.2 F 87 18 129/84 97 02/18/17 10:11 02/18/17 10:11 02/18/17 10:11 02/18/17 10:11 02/18/17 10:11 General appearance: Present: cooperative, A&O X 3, pleasant, no acute distress, answers questions appropriately - Head Head exam: Present: atraumatic, normocephalic - Neck Neck exam general surgery: Present: supple, trachea midline. Absent: lymphadenopathy - Respiratory Respiratory exam: Present: CTAB. Absent: accessory muscle use, rales, rhonchi, wheezes - Cardiovascular Cardiovascular exam: Present: RRR, +S1, +S2. Absent: diastolic murmur, gallop, rubs, systolic murmur - Extremities Exam Extremities exam: Present: warm, radial pulses palpable and symmetrical. Absent : calf tenderness, cyanotic, pedal edema - Neurological Exam Neurological exam: Present: CN II-XII intact, oriented X3, no focal deficits. Absent: pronater drift, facial droop, speech deficit Internal Medicine: Result - Labs CBC & Chem 7: 02/18/17 04:20 02/18/17 04:20 Labs: Short CBC 02/18/17 Range/Units 04:20 WBC 5.2 (4.3-11.1) K/mcL Hgb 13.2 (12.9-16.9) g/dL Hct 39.6 (37.5-50.1) % Plt Count 188 (140-400) K/mcL Neutrophils # 2.8 (1.6-8.9) K/mcL BMP 02/18/17 04:20 Sodium 136 Potassium 4.4 Chloride 102 Carbon Dioxide 26 BUN 14 Creatinine 0.81 Glucose 125 H Calcium 9.2 - ABG Interpretation ABG results: PT/INR, D-dimer PT 14.2 Seconds (9.4-12.1) H 02/09/17 00:26 - VTE Documentation of Mechanical Device: Intermittent pneumatic compression device Consult Discharge Plan - Plan Referrals: Antonette Coffey DIRECTOR OF SPECIAL EDUCATION [Advanced Practice Nurse] - 03/03/17 8:20 am NONE,PCP [Primary Care Provider] -
[2017-02-18] MEDS: Famotidine 20 MG TABLET PO SCH (16:10)
[2017-02-18] MEDS: Vancomycin 1,500 MG in D5% in Water 250 ML IVPB SCH (19:46)
[2017-02-19] MEDS ORDERED: *HR* Morphine 2 MG/ML SYRINGE IVP ONE (01:35)
[2017-02-19] MEDS: *HR* Heparin 5,000 UNIT/ML VIAL SQ SCH ×2 (05:46→17:09)
[2017-02-19] MEDS: *HR* HYDROcodone/Acet 5/325 mg TABLET PO PRN ×4 (05:46→21:57)
[2017-02-19 05:51] LABS: Basophils # 0.1 K/mcL (0.0-0.2); Basophils % 1.1 %; Eosinophils # 0.1 K/mcL (0.0-0.6); Hematocrit 40.3 % (37.5-50.1); Hemoglobin 13.5 g/dL (12.9-16.9); Immature Granulocytes % 0.7 % (0-4); Lymphocytes % 37.3 %; Mean Corpuscular HGB Conc 33.5 g/dL (31.6-35.5); Mean Corpuscular Hemoglobin 31.6 pg (28.0-33.3); Mean Corpuscular Volume 94.4 fL (83.0-100.0); Mean Platelet Volume 9.7 fL (9.4-12.4); Monocytes # 0.6 K/mcL (0.0-1.3); Monocytes % 10.2 %; Neutrophils # 2.6 K/mcL (1.6-8.9); Platelet Count 170 K/mcL (140-400); Red Blood Count 4.27 M/mcL (4.19-5.50); Red Cell Distribution Width 14.2 % (11.5-14.5); Segmented Neutrophils % 48.7 %
[2017-02-19 06:01] LABS: BUN/Creatinine Ratio 19 (6-26); Blood Urea Nitrogen 16 mg/dL (8-26); Calcium 9.6 mg/dL (8.6-10.8); Carbon Dioxide 27 mEq/L (19-29); Chloride 103 mEq/L (98-109); Glucose 97 mg/dL (70-99); Osmolality,Calculated 287 (280-300); Potassium 4.6 mEq/L (3.5-4.5); Sodium 138 mEq/L (136-145); eGFR For African Americans > 60 (> 60); eGFR For Non-African Americans > 60 (> 60)
[2017-02-19] MEDS: Famotidine 20 MG TABLET PO SCH ×2 (08:10→17:09)
[2017-02-19] MEDS: Nicotine 14 MG PATCH.TD24 TD SCH (09:25)
[2017-02-19] MEDS: Vancomycin 1,500 MG in D5% in Water 250 ML IVPB SCH ×2 (09:27→21:54)
--- NOTE | 2017-02-19 09:29 | Internal Med Progress Note ---
Date of Encounter: 02/19/17 Time of Encounter: 08:00 - Assessment and plan (1) Osteomyelitis Current Visit: No Status: Suspected Qualifiers: Osteomyelitis type: other acute Osteomyelitis location: foot Laterality: left Qualified Code(s): M86.172 - Other acute osteomyelitis, left ankle and foot (2) Tobacco dependence Current Visit: Yes Status: Chronic Assessment and plan: Counseled about cessation, nicotine patch (3) Left foot pain Current Visit: Yes Status: Acute Assessment and plan: Patient was to be on medications the past, for his chronic back pain and neuropathy. We will add Lyrica, we will start weaning off the medication again. Check uric acid to rule out any doubt (4) Chronic back pain Current Visit: Yes Status: Acute Qualifiers: Back pain location: low back pain Back pain laterality: unspecified Sciatica presence: without sciatica Qualified Code(s): M54.5 - Low back pain; G89.29 - Other chronic pain; G89.29 - Other chronic pain - Time Spent With Patient Awaiting ECF for discharge for [facility] use of antibiotic - Subjective Interval history: Patient denies any chest pain . Patient is staill complaining of left foot pain , He used to be on Lyrica before, It helped with his pain . - Constitutional Vitals: Temp Pulse Resp BP Pulse Ox 98.3 F 104 16 118/79 99 02/19/17 06:33 02/19/17 06:33 02/19/17 06:33 02/19/17 06:33 02/19/17 06:33 General appearance: Present: cooperative, A&O X 3, pleasant, no acute distress, answers questions appropriately - Head Head exam: Present: atraumatic, normocephalic - Neck Neck exam general surgery: Present: supple, trachea midline. Absent: lymphadenopathy - Respiratory Respiratory exam: Present: CTAB. Absent: accessory muscle use, rales, rhonchi, wheezes - Cardiovascular Cardiovascular exam: Present: RRR, +S1, +S2. Absent: diastolic murmur, gallop, rubs, systolic murmur - GI/Abdominal GI/Abdominal exam: Present: normal bowel sounds, soft, no peritoneal signs. Absent: distended, tenderness - Extremities Exam Extremities exam: Present: warm. Absent: calf tenderness, cyanotic, pedal edema - Neurological Exam Neurological exam: Present: CN II-XII intact, oriented X3, no focal deficits. Absent: pronater drift, facial droop, speech deficit Internal Medicine: Result - Labs CBC & Chem 7: 02/19/17 05:30 02/19/17 05:30 Labs: Short CBC 02/19/17 Range/Units 05:30 WBC 5.4 (4.3-11.1) K/mcL Hgb 13.5 (12.9-16.9) g/dL Hct 40.3 (37.5-50.1) % Plt Count 170 (140-400) K/mcL Neutrophils # 2.6 (1.6-8.9) K/mcL BMP 02/19/17 05:30 Sodium 138 Potassium 4.6 H Chloride 103 Carbon Dioxide 27 BUN 16 Creatinine 0.83 Glucose 97 Calcium 9.6 - ABG Interpretation ABG results: PT/INR, D-dimer PT 14.2 Seconds (9.4-12.1) H 02/09/17 00:26 - VTE Documentation of Mechanical Device: Intermittent pneumatic compression device Consult Discharge Plan - Plan Referrals: Antonette Coffey BOILER TENDERS SUPERVISOR [Advanced Practice Nurse] - 03/03/17 8:20 am NONE,PCP [Primary Care Provider] -
--- NOTE | 2017-02-19 11:50 | Infectious Disease Progress No ---
Date of Encounter: 02/19/17 Time of Encounter: 11:48 - Assessment and Plan (1) Bacteremia due to methicillin resistant Staphylococcus aureus Current Visit: Yes Status: Acute Causative organism: MRSA. Source likely the left foot infection. Blood cultures drawn 01/29/17 were positive 1/2 sets for MRSA. Uncomplicated, but the patient will likely require a prolonged course of IV antibiotics due to the extensive foot infection. He has one major and one minor Modified Snow's criteria. Repeat blood cultures drawn 02/08/17 are negative x 2 sets. TTE and NEWTON are negative for vegetations. Continue Vancomycin IV. Pharmacy to dose. Goal trough ~15. Duration of treatment depends on the clinical picture, likely 4-6 weeks given the extensive foot infection. Monitor renal function and for drug toxicity. (2) Foot abscess, left Current Visit: Yes Status: Acute Location: Left medial foot. Causative organism unclear, but likely MRSA given blood culture results. MRI of the left foot showed extensive diffuse soft tissue edema consistent with cellulitis. Intense myositis with severe tenosynovitis in multiple areas were noted. Additionally, there were findings concerning for abscess as well. Podiatry was consulted. States post left foot I & D 02/10/[address] Shields. Operative report reviewed. Extensive infection noted, but no evidence of bone involvement. The pus did penetrate the plantar fascia. Status post repeat washout 02/12/17. Operative note reviewed and no additional infection was noted. Continue Vancomycin IV. Pharmacy to dose. Goal trough ~15. Duration of treatment depends on the clinical picture, but likely 4 weeks of IV antibiotics. administrative services specialist to assist with discharge planning. Recommend ECF placement with patient's history of IVDU. Will need weekly CBC, BUN/Cr, ESR, CRP, and Vanc trough. Will need weekly PICC care. Follow up with ID 03/03/17 at 0820. If patient is accepted at [facility], will not need to follow up with ID as the physicians there will manage the patient's antibiotics. (3) Left foot pain Current Visit: Yes Status: Acute Secondary to left foot abscess. Status post I & D 02/10/[address] Shields with repeat washout 02/12/17. Improved post-operatively. Pain management per the primary and podiatry teams. (4) IV drug user Current Visit: Yes Status: Chronic Reports last use of IV heroine about three weeks ago. Known Hep C positive. HIV negative. Withdraw management per the primary team recommendations. (5) Hepatitis C Current Visit: Yes Status: Chronic Qualifiers: Viral hepatitis chronicity: chronic Hepatic coma status: without hepatic coma Qualified Code(s): B18.2 - Chronic viral hepatitis C (6) Tobacco dependence Current Visit: Yes Status: Chronic - Subjective Interval history: Patient seen and examined. No acute events noted overnight. Status post left foot I & D 02/10/17 with repeat washout 02/12/17. States left foot pain is improved, but it did keep him awake some last night. Denies fevers, chills, rigors. Denies headache or neck pain. Denies chest pain, shortness of breath, or cough. Denies nausea, vomiting, diarrhea, constipation, or abdominal pain. Denies urinary complaints and states his appetite is good. Denies oral thrush or new skin lesions. Infect Dis PN-Objective Data - Labs CBC & Chem 7: 02/19/17 05:30 02/19/17 05:30 Labs: Laboratory Results - last 24 hr 02/19/17 02/19/17 05:30 05:30 WBC 5.4 RBC 4.27 Hgb 13.5 Hct 40.3 MCV 94.4 MCH 31.6 MCHC 33.5 RDW 14.2 Plt Count 170 MPV 9.7 Immature Gran % 0.7 Seg Neutrophils % 48.7 Lymphocytes % 37.3 Monocytes % 10.2 Eosinophils % 2.0 Basophils % 1.1 Neutrophils # 2.6 Lymphocytes # 2.0 Monocytes # 0.6 Eosinophils # 0.1 Basophils # 0.1 Sodium 138 Potassium 4.6 H Chloride 103 Carbon Dioxide 27 BUN 16 Creatinine 0.83 Est GFR ( Amer) > 60 Est GFR (Non-Af Amer) > 60 BUN/Creatinine Ratio 19 Glucose 97 Calculated Osmolality 287 Calcium 9.6 Cultures: Cultures 02/10/17 13:07 Anaerobic Culture - Final Left Foot No anaerobes were recovered. 02/08/17 22:57 Blood Culture - Final Peripheral Venipuncture No growth. 02/08/17 21:51 Blood Culture - Final Peripheral Venipuncture No growth. 02/10/17 13:07 Wound Culture - Final Left Foot Methicillin Resistant S.aureus Serology 02/09/17 Range/Units 17:27 HIV Ag/Ab Combo Qual Nonreactive (Nonreactive) Exam - Constitutional Vitals: Temp Pulse Resp BP Pulse Ox 98.2 F 108 16 114/78 99 02/19/17 09:51 02/19/17 09:51 02/19/17 09:51 02/19/17 09:51 02/19/17 09:51 General appearance: average body habitus, cooperative, no acute distress - Head Head exam: Present: atraumatic, normal inspection, normocephalic - Eye Eye exam: Present: EOMI, normal appearance, PERRL Pupils: Present: normal accommodation - ENT ENT exam: Present: mucous membranes moist - Neck Neck exam: Present: normal inspection - Respiratory Respiratory exam: Present: CTAB. Absent: rales, respiratory distress, rhonchi, wheezes - Cardiovascular Cardiovascular exam: Present: RRR, +S1, +S2 - GI/Abdominal GI/Abdominal exam: Present: normal bowel sounds, soft. Absent: distended, tenderness - Extremities Exam Extremities exam: Present: normal inspection, tenderness (left foot). Absent: joint swelling, pedal edema Additional comments: Left foot dressing C/D/I. - Neurological Exam Neurological exam: Present: alert, oriented X3, no focal deficits - Psychiatric Psychiatric exam: Present: normal affect, normal mood - Skin Skin exam: Present: dry, intact, normal color, warm - VTE Documentation of Mechanical Device: Intermittent pneumatic compression device Consult Discharge Plan - Plan Referrals: Antonette Coffey, [employer] RETAILER SALES CONSULTANT [Advanced Practice Nurse] - 03/03/17 8:20 am NONE,PCP [Primary Care Provider] -
--- NOTE | 2017-02-19 12:59 | Podiatry Progress Note ---
Date of Encounter: 02/19/17 Time of Encounter: 09:40 - Assessment and Plan (1) Bacteremia due to methicillin resistant Staphylococcus aureus Current Visit: Yes Status: Acute continue current IV antibiotic therapy Monitor renal function (2) IV drug user Current Visit: Yes Status: Chronic Will need placement to LTCF for IV antibiotic therapy due to hx of IVDA (3) Foot abscess, left Current Visit: Yes Status: Acute Assessment : S/p Debridement and secondary closure of left foot abscess on 02/10 and 02/12 Causative organism MRSA Dressing clean dry and intact WBC 5.4, Temp 98.3 Plan: Continue current dressing changes- cleanse with saline, adaptic, 4x4 and kerlex - daily Awaiting LTCF placement- according to SW note, awaiting insurance acceptance of placement- will need placement due to need for IV antibiotic coverage and hx of IVDA Patient will likely need 6 weeks of therapy- ID following Patient is non weight bearing to LLE Has been cleared per PT Patient requesting increase in pain medication- internal medicine following and managing pain medication Call with any issues or concerns Will need seen in podiatry clinic 1 week after discharge Subjective Interval history: s/p #1: Debridement irrigation and drainage #2: Secondary closure surgical wound #3 placement of TLS drain per Completed on 02/12 Prior wash out and wound vac placement on 02/10 Patient resting comfortably on arrival. Dressing intact. TLS drain removed 2 days ago, no complications noted. Patient states he is in a lot of pain to left foot. It appears that morphine dose was finished this morning, internal medicine was contacted and morphine was administered. Patient states they decreased his norco dosage to every 8 hours. States he has told them he has a high tolerance for pain medication, states he use to take "50 pain pills a week" Patient denies any fevers, chills, n/v or flu like symptoms Patient has been afebrile and wbc 4.2 Objective - Vital Signs Vital Signs: Vital Signs Temp Pulse Resp BP Pulse Ox 02/19/17 12:24 95 16 137/91 97 02/19/17 09:51 98.2 F 108 16 114/78 99 02/19/17 06:33 98.3 F 104 16 118/79 99 02/19/17 00:13 98.1 F 101 18 112/77 98 02/18/17 21:21 98.0 F 115 17 112/72 97 02/18/17 14:08 98.5 F 93 16 127/78 98 Intake and Output 02/18/17 02/19/17 02/19/17 23:59 07:59 15:59 Intake Total 250 / 250 Balance 250 / 250 Intake: IV Fluids 250 / 250 Vancocin 1,500 MG In Dextrose 5 250 / 250 % 250 ML @ 166.67 mls/hr IVPB Q12H [facility] Rx#:[id number] - Exam Exam: General Examination: CONSTITUTIONAL: Alert, oriented, in no acute distress, non-toxic. EXTREMITIES: CFT 3 seconds all toes. Edema +1 and pedal pulses palpable DP/PT NEUROLOGIC: Intact sensation to light touch S/p Debridement and secondary closure of surgical wound- dressing clean dry and intact- Does not need changed at this time. no shadow drainage noted. Toes are warm, pink, immediate cap refill, movement intact, sensation intact. No calf pain with manual compression . - Lab Result Diagrams: 02/19/17 05:30 02/19/17 05:30 Labs: Abnormal lab results PT 14.2 Seconds (9.4-12.1) H 02/09/17 00:26 Potassium 4.6 mEq/L (3.5-4.5) H 02/19/17 05:30 - VTE Documentation of Mechanical Device: Intermittent pneumatic compression device Consult Discharge Plan - Plan Referrals: Antonette Coffey, COMBER TENDER [Advanced Practice Nurse] - 03/03/17 8:20 am NONE,PCP [Primary Care Provider] -
[2017-02-19] MEDS: Pregabalin 50 MG CAPSULE PO SCH ×2 (17:09→21:54)
[2017-02-20] MEDS: *HR* Heparin 5,000 UNIT/ML VIAL SQ SCH ×2 (04:56→18:06)
[2017-02-20] MEDS: *HR* HYDROcodone/Acet 5/325 mg TABLET PO PRN ×3 (04:57→19:16)
[2017-02-20 05:33] LABS: Basophils # 0.1 K/mcL (0.0-0.2); Basophils % 1.1 %; Eosinophils # 0.1 K/mcL (0.0-0.6); Eosinophils % 1.8 %; Hematocrit 42.1 % (37.5-50.1); Hemoglobin 14.1 g/dL (12.9-16.9); Immature Granulocytes % 0.4 % (0-4); Lymphocytes # 2.2 K/mcL (0.6-4.6); Lymphocytes % 39.9 %; Mean Corpuscular HGB Conc 33.5 g/dL (31.6-35.5); Mean Corpuscular Hemoglobin 31.7 pg (28.0-33.3); Mean Corpuscular Volume 94.6 fL (83.0-100.0); Monocytes # 0.5 K/mcL (0.0-1.3); Monocytes % 8.5 %; Neutrophils # 2.7 K/mcL (1.6-8.9); Platelet Count 175 K/mcL (140-400); Red Blood Count 4.45 M/mcL (4.19-5.50); Red Cell Distribution Width 14.1 % (11.5-14.5); Segmented Neutrophils % 48.3 %
[2017-02-20 05:47] LABS: BUN/Creatinine Ratio 18 (6-26); Blood Urea Nitrogen 14 mg/dL (8-26); Calcium 9.5 mg/dL (8.6-10.8); Carbon Dioxide 28 mEq/L (19-29); Chloride 103 mEq/L (98-109); Glucose 98 mg/dL (70-99); Osmolality,Calculated 288 (280-300); Potassium 4.7 mEq/L (3.5-4.5); Sodium 139 mEq/L (136-145); eGFR For African Americans > 60 (> 60); eGFR For Non-African Americans > 60 (> 60)
[2017-02-20] MEDS: Famotidine 20 MG TABLET PO SCH ×2 (08:09→18:06)
[2017-02-20] MEDS: Pregabalin 50 MG CAPSULE PO SCH ×2 (08:09→15:08)
[2017-02-20] MEDS: Nicotine 14 MG PATCH.TD24 TD SCH (08:09)
[2017-02-20] MEDS: Vancomycin 1,500 MG in D5% in Water 250 ML IVPB SCH (10:03)
--- NOTE | 2017-02-20 10:20 | Infectious Disease Progress No ---
Date of Encounter: 02/20/17 Time of Encounter: 10:19 - Assessment and Plan (1) Bacteremia due to methicillin resistant Staphylococcus aureus Current Visit: Yes Status: Acute Causative organism: MRSA. Source likely the left foot infection. Blood cultures drawn 01/29/17 were positive 1/2 sets for MRSA. Uncomplicated, but the patient will likely require a prolonged course of IV antibiotics due to the extensive foot infection. He has one major and one minor Modified Snow's criteria. Repeat blood cultures drawn 02/08/17 are negative x 2 sets. TTE and NEWTON are negative for vegetations. Continue Vancomycin IV. Pharmacy to dose. Goal trough ~15. Duration of treatment depends on the clinical picture, likely 4-6 weeks given the extensive foot infection. Monitor renal function and for drug toxicity. (2) Foot abscess, left Current Visit: Yes Status: Acute Location: Left medial foot. Causative organism unclear, but likely MRSA given blood culture results. MRI of the left foot showed extensive diffuse soft tissue edema consistent with cellulitis. Intense myositis with severe tenosynovitis in multiple areas were noted. Additionally, there were findings concerning for abscess as well. Podiatry was consulted. States post left foot I & D 02/10/[address] Shields. Operative report reviewed. Extensive infection noted, but no evidence of bone involvement. The pus did penetrate the plantar fascia. Status post repeat washout 02/12/17. Operative note reviewed and no additional infection was noted. Continue Vancomycin IV. Pharmacy to dose. Goal trough ~15. Duration of treatment depends on the clinical picture, but likely 4 weeks of IV antibiotics. commissioner of relocation services to assist with discharge planning. Recommend ECF placement with patient's history of IVDU. Will need weekly CBC, BUN/Cr, ESR, CRP, and Vanc trough. Will need weekly PICC care. Follow up with ID 03/03/17 at 0820. If patient is accepted at [facility], will not need to follow up with ID as the physicians there will manage the patient's antibiotics. (3) Left foot pain Current Visit: Yes Status: Acute Secondary to left foot abscess. Status post I & D 02/10/[address] Shields with repeat washout 02/12/17. Improved post-operatively. Pain management per the primary and podiatry teams. (4) IV drug user Current Visit: Yes Status: Chronic Reports last use of IV heroine about three weeks ago. Known Hep C positive. HIV negative. Withdraw management per the primary team recommendations. (5) Hepatitis C Current Visit: Yes Status: Chronic Qualifiers: Viral hepatitis chronicity: chronic Hepatic coma status: without hepatic coma Qualified Code(s): B18.2 - Chronic viral hepatitis C (6) Tobacco dependence Current Visit: Yes Status: Chronic - Subjective Interval history: Patient seen and examined. No acute events noted overnight. Status post left foot I & D 02/10/17 with repeat washout 02/12/17. States left foot pain is improved since starting Lyrica a couple of days ago. Denies fevers, chills, rigors. Denies headache or neck pain. Denies chest pain, shortness of breath, or cough. Denies nausea, vomiting, diarrhea, constipation, or abdominal pain. Denies urinary complaints and states his appetite is good. Denies oral thrush or new skin lesions. Infect Dis PN-Objective Data - Labs CBC & Chem 7: 02/20/17 05:00 02/20/17 05:00 Labs: Laboratory Results - last 24 hr 02/20/17 02/20/17 02/20/17 05:00 05:00 08:15 WBC 5.5 RBC 4.45 Hgb 14.1 Hct 42.1 MCV 94.6 MCH 31.7 MCHC 33.5 RDW 14.1 Plt Count 175 MPV 10.0 Immature Gran % 0.4 Seg Neutrophils % 48.3 Lymphocytes % 39.9 Monocytes % 8.5 Eosinophils % 1.8 Basophils % 1.1 Neutrophils # 2.7 Lymphocytes # 2.2 Monocytes # 0.5 Eosinophils # 0.1 Basophils # 0.1 Sodium 139 Potassium 4.7 H Chloride 103 Carbon Dioxide 28 BUN 14 Creatinine 0.79 Est GFR ( Amer) > 60 Est GFR (Non-Af Amer) > 60 BUN/Creatinine Ratio 18 Glucose 98 Calculated Osmolality 288 Calcium 9.5 Vancomycin Trough 12.3 Cultures: Cultures 02/10/17 13:07 Anaerobic Culture - Final Left Foot No anaerobes were recovered. 02/08/17 22:57 Blood Culture - Final Peripheral Venipuncture No growth. 02/08/17 21:51 Blood Culture - Final Peripheral Venipuncture No growth. 02/10/17 13:07 Wound Culture - Final Left Foot Methicillin Resistant S.aureus Serology 02/09/17 Range/Units 17:27 HIV Ag/Ab Combo Qual Nonreactive (Nonreactive) Exam - Constitutional Vitals: Temp Pulse Resp BP Pulse Ox 97.8 F 90 18 150/86 99 02/20/17 00:46 02/20/17 00:46 02/20/17 00:46 02/20/17 00:46 02/20/17 00:46 General appearance: average body habitus, cooperative, no acute distress - Head Head exam: Present: atraumatic, normal inspection, normocephalic - Eye Eye exam: Present: EOMI, normal appearance, PERRL Pupils: Present: normal accommodation - ENT ENT exam: Present: mucous membranes moist - Neck Neck exam: Present: normal inspection - Respiratory Respiratory exam: Present: CTAB. Absent: rales, respiratory distress, rhonchi, wheezes - Cardiovascular Cardiovascular exam: Present: RRR, +S1, +S2 - GI/Abdominal GI/Abdominal exam: Present: normal bowel sounds, soft. Absent: distended, tenderness - Extremities Exam Extremities exam: Present: tenderness (left foot). Absent: pedal edema Additional comments: Left foot dressing C/D/I. - Neurological Exam Neurological exam: Present: alert, oriented X3, no focal deficits - Psychiatric Psychiatric exam: Present: normal affect, normal mood - Skin Skin exam: Present: dry, intact, normal color, warm - VTE Documentation of Mechanical Device: Intermittent pneumatic compression device Consult Discharge Plan - Plan Referrals: Antonette Coffey, SHADOW GRAPH WEIGHT OPERATOR [Advanced Practice Nurse] - 03/03/17 8:20 am NONE,PCP [Primary Care Provider] -
[2017-02-20 11:52] VITALS: BP 131/82
--- NOTE | 2017-02-20 11:52 | Internal Med Progress Note ---
Date of Encounter: 02/20/17 Time of Encounter: 11:00 - Assessment and plan (1) Osteomyelitis Current Visit: No Status: Suspected Assessment and plan: Continue current treatment awaiting [facility] antibiotic placement in an ECF Qualifiers: Osteomyelitis type: other acute Osteomyelitis location: foot Laterality: left Qualified Code(s): M86.172 - Other acute osteomyelitis, left ankle and foot (2) Tobacco dependence Current Visit: Yes Status: Chronic (3) Left foot pain Current Visit: Yes Status: Acute Assessment and plan: Improving will cut back pain medication make it every 6 hour counseling patient about ambulation with assistance up to chair at least 4 hours daily (4) Chronic back pain Current Visit: Yes Status: Acute Qualifiers: Back pain location: low back pain Back pain laterality: unspecified Sciatica presence: without sciatica Qualified Code(s): M54.5 - Low back pain; G89.29 - Other chronic pain; G89.29 - Other chronic pain - Subjective Interval history: Patient stated he has some improvement of his pain with using Lyrica. Patient denies any fever or chills. - Constitutional Vitals: Temp Pulse Resp BP Pulse Ox 98.4 F 103 16 131/82 97 02/20/17 11:47 02/20/17 11:47 02/20/17 11:47 02/20/17 11:47 02/20/17 11:47 General appearance: Present: cooperative, A&O X 3, pleasant, no acute distress, answers questions appropriately - Neck Neck exam general surgery: Present: supple, trachea midline. Absent: lymphadenopathy - Respiratory Respiratory exam: Present: CTAB. Absent: accessory muscle use, rales, rhonchi, wheezes - Cardiovascular Cardiovascular exam: Present: RRR, +S1, +S2. Absent: diastolic murmur, gallop, rubs, systolic murmur - Extremities Exam Extremities exam: Present: warm. Absent: calf tenderness, cyanotic - Neurological Exam Neurological exam: Present: CN II-XII intact, oriented X3, no focal deficits. Absent: pronater drift, facial droop, speech deficit Internal Medicine: Result - Labs CBC & Chem 7: 02/20/17 05:00 02/20/17 05:00 Labs: Short CBC 02/20/17 Range/Units 05:00 WBC 5.5 (4.3-11.1) K/mcL Hgb 14.1 (12.9-16.9) g/dL Hct 42.1 (37.5-50.1) % Plt Count 175 (140-400) K/mcL Neutrophils # 2.7 (1.6-8.9) K/mcL BMP 02/20/17 05:00 Sodium 139 Potassium 4.7 H Chloride 103 Carbon Dioxide 28 BUN 14 Creatinine 0.79 Glucose 98 Calcium 9.5 - ABG Interpretation ABG results: PT/INR, D-dimer PT 14.2 Seconds (9.4-12.1) H 02/09/17 00:26 - VTE Documentation of Mechanical Device: Intermittent pneumatic compression device Consult Discharge Plan - Plan Referrals: Antonette Coffey CNP [Advanced Practice Nurse] - 03/03/17 8:20 am NONE,PCP [Primary Care Provider] -
--- NOTE | 2017-02-20 17:10 | Physician Discharge Referral ---
ExtendedCare Referral Info Institutional Level of Care: Skilled (Location: Left medial foot. Causative organism unclear, but likely MRSA given blood culture results. MRI of the left foot showed extensive diffuse soft tissue edema consistent with cellulitis. Intense myositis with severe tenosynovitis in multiple areas were noted. Additionally,States post left foot I & D 02/10/[address] Shields. Operative report reviewed. Extensive infection noted, but no evidence of bone involvement. The pus did penetrate the plantar fascia. Status post repeat washout 02/12/17. Operative note reviewed and no additional infection was noted. Continue Vancomycin IV. Pharmacy to dose. Goal trough ~15. Duration of treatment depends on the clinical picture, For 4 weeks of IV antibiotics. follow up with Podiatry and ID for furthur monitoring . Will need weekly CBC, BUN/Cr, ESR, CRP, and Vanc trough. Will need weekly PICC care. Follow up with ID 03/03/17 at 0820. If patient is accepted at [facility], will not need to follow up with ID as the physicians there will manage the patient's antibiotics. ) - Diagnosis (1) Osteomyelitis Priority: Primary Status: Suspected (2) Tobacco dependence Priority: Secondary Status: Chronic (3) Left foot pain Priority: Secondary Status: Acute (4) Chronic back pain Priority: Secondary Status: Acute - Transfer Medications Prescriptions: Acetaminophen [Tylenol] 650 mg PO Q8H PRN #90 tablet PRN Reason: Pain Cyanocobalamin (Vitamin B-12) [Vitamin B-12] 1,000 mcg PO DAILY #90 cap Ergocalciferol (VITAMIN D2) [Drisdol (50,000 Unit)] 50,000 unit PO QWEEK #20 capsule Folic Acid 1 mg PO DAILY #90 tablet Oxycodone HCl 5 mg PO Q8H #30 tablet Home Medications: Cyclobenzaprine [Flexeril] 10 mg PO TID #21 tablet 01/26/17 [Rx] Naproxen [Naprosyn] 500 mg PO BID PRN #20 tablet 01/27/17 [Rx] Acetaminophen [Tylenol] 650 mg PO Q8H PRN #90 tablet 02/20/17 [Rx] Cyanocobalamin (Vitamin B-12) [Vitamin B-12] 1,000 mcg PO DAILY #90 cap [Rx] Ergocalciferol (VITAMIN D2) [Drisdol (50,000 Unit)] 50,000 unit PO QWEEK #20 capsule 02/20/17 [Rx] Famotidine [Pepcid] 20 mg PO BIDAC tablet 02/20/17 [Rx] Folic Acid 1 mg PO DAILY #90 tablet 02/20/17 [Rx] HYDROcodone/Acet 5/325 mg [[place] 5-325 mg] 1 tab PO Q8H PRN #90 tablet 02/20/17 [Rx] Ipratropium/Albuterol Neb [Duoneb] 3 ml IH [id number] PRN inhsol 02/20/17 [Rx] Nicotine Patch [Nicoderm] 14 mg TD DAILY patch.td24 02/20/17 [Rx] Oxycodone HCl 5 mg PO Q8H #30 tablet 02/20/17 [Rx] Pregabalin [Lyrica] 50 mg PO TID capsule 02/20/17 [Rx] Vancomycin [Vancocin (wt based)] 1 g IVPB DAILY 28 Days #0 vial 02/20/17 [Rx] Allergies/Adverse Reactions: 3 Allergy/AdvReac Type Severity Reaction Status Date / Time Amoxicillin Allergy Difficulty Verified 02/08/17 15:41 Breathing promethazine [From Phenergan] Allergy Agitated Verified 02/08/17 15:41 - Respiratory Orders Smoking Cessation: Smoking cessation has been advised. For more information, call the [place] Tobacco Quit Line at 2-823-WSZE-NOW. - Advance Directives Code Status: Full Code - Mobility Orders Ambulate - Rehabiliation Orders Rehab Orders: Evaluation for Physical Therapy, Evaluation for Occupational Therapy - Diet Orders Regular CERTIFICATION: I certify that the transfer of the above named patient to an Extended Care Facility is necessary for the continuing treatment of the diagnosis listed. The above information is true and accurate reflection of patient's current condition. Confidential - Redisclosure prohibited without a patient's written consent.
--- NOTE | 2017-02-20 17:36 | Discharge Summary ---
Date of Encounter: 02/20/17 Time of Encounter: 08:00 - Discharge Diagnosis (1) Osteomyelitis Priority: Primary Status: Suspected Qualifiers: Osteomyelitis type: other acute Osteomyelitis location: foot Laterality: left Qualified Code(s): M86.172 - Other acute osteomyelitis, left ankle and foot (2) Tobacco dependence Priority: Secondary Status: Chronic (3) Left foot pain Priority: Primary Status: Acute (4) Chronic back pain Priority: Secondary Status: Acute Qualifiers: Back pain location: low back pain Back pain laterality: unspecified Sciatica presence: without sciatica Qualified Code(s): M54.5 - Low back pain; G89.29 - Other chronic pain; G89.29 - Other chronic pain - Discharge Medications Prescriptions: Acetaminophen [Tylenol] 650 mg PO Q8H PRN #90 tablet PRN Reason: Pain Cyanocobalamin (Vitamin B-12) [Vitamin B-12] 1,000 mcg PO DAILY #90 cap Ergocalciferol (VITAMIN D2) [Drisdol (50,000 Unit)] 50,000 unit PO QWEEK #20 capsule Folic Acid 1 mg PO DAILY #90 tablet Oxycodone HCl 5 mg PO Q8H #30 tablet Home Medications: Cyclobenzaprine [Flexeril] 10 mg PO TID #21 tablet 01/26/17 [Rx] Naproxen [Naprosyn] 500 mg PO BID PRN #20 tablet 01/27/17 [Rx] Acetaminophen [Tylenol] 650 mg PO Q8H PRN #90 tablet 02/20/17 [Rx] Cyanocobalamin (Vitamin B-12) [Vitamin B-12] 1,000 mcg PO DAILY #90 cap [Rx] Ergocalciferol (VITAMIN D2) [Drisdol (50,000 Unit)] 50,000 unit PO QWEEK #20 capsule 02/20/17 [Rx] Famotidine [Pepcid] 20 mg PO BIDAC tablet 02/20/17 [Rx] Folic Acid 1 mg PO DAILY #90 tablet 02/20/17 [Rx] HYDROcodone/Acet 5/325 mg [[place] 5-325 mg] 1 tab PO Q8H PRN #90 tablet 02/20/17 [Rx] Ipratropium/Albuterol Neb [Duoneb] 3 ml IH [id number] PRN inhsol 02/20/17 [Rx] Nicotine Patch [Nicoderm] 14 mg TD DAILY patch.td24 02/20/17 [Rx] Oxycodone HCl 5 mg PO Q8H #30 tablet 02/20/17 [Rx] Pregabalin [Lyrica] 50 mg PO TID capsule 02/20/17 [Rx] Vancomycin [Vancocin (wt based)] 1 g IVPB DAILY 28 Days #0 vial 02/20/17 [Rx] Allergies/Adverse Reactions: 3 Allergy/AdvReac Type Severity Reaction Status Date / Time Amoxicillin Allergy Difficulty Verified 02/08/17 15:41 Breathing promethazine [From Phenergan] Allergy Agitated Verified 02/08/17 15:41 Date of admission: 02/09/17 02:28 Primary care physician: PCP NONE Consults: 02/08/17 23:49 Consult to Infectious Diseases [CONS] Routine Consulting Provider: [facility]ious [facility] Reason for Consult: MRSA bacteremia, IVDU Call Completed: No 02/09/17 09:46 Consult to Podiatry [CONS] Routine Consulting Provider: Podiatry [facility] Reason for Consult: Left foot osteomyelitis, MRSA wound Call Completed: Yes 02/11/17 16:02 Consult to Land Classifier [CONS] Routine Reason for SW Consult: possible ECF placement 02/13/17 08:09 Consult to Invasive Line Access Team [CONS] Routine Reason for Consult: Picc Line Insertion Line Type: PICC 02/17/17 14:04 Consult to Occupational Therapy [CONS] Routine Comment: Evaluate, develop and implement POC Reason for Consult: Non weight bearing to left foot Consult to Physical Therapy [CONS] Routine Comment: Evaluate, develop and implement POC Reason for Consult: Non weight bearing to left foot Discharging clinician: Dustin Mcnulty Anticipated date of discharge: 02/20/17 - Patient Status Disposition: Transfer Other Condition: Critical - Discharge Instructions Follow Up With: Antonette Coffey INTERNATIONAL LOGISTICS COORDINATOR [Advanced Practice Nurse] - 03/03/17 8:20 am NONE,PCP [Primary Care Provider] - Hospital course: Mr. Montenegro is a 46 year old male with a PMH of MRSA skin infections, Hepatitis C , IVDU, tobacco dependence, chronic low back pain with L4-L5 laminectomy November 2016 and anxiety disorder presented with complain of left foot pain and increased redness despite antibiotic treatment. Patient reports initial foot injury on 01/27/17 after he kicked something with his left foot. He was evaluated at the [facility] ED on 01/29/17 and was started on Keflex 500mg PO QID for cellulitis. Blood cultures were collected at that time which are positive for MRSA. Today pain severity is 5/10, radiates up his left leg, is not relieved by Tylenol, and associated with chills and inability to bear weight on his left foot. He has cats at home, works in [employer], and has a remote history of nail piercing his left foot after stepping on a nail in the . He denied left foot drainage, injecting IV drugs into left foot, or previous leg surgery or hardware. In the ED at [facility], labs revealed ESR level > 130 and CRP 114. Blood cultures drawn 01/29/17 were positive 1/2 sets for MRSA.The patient has no indwelling hardware.He has one major and one minor Modified Snow's criteria. MRI of the left foot showed extensive diffuse soft tissue edema consistent with cellulitis. Intense myositis with severe tenosynovitis in multiple areas were noted. Additionally, there were findings concerning for abscess as well. Podiatry was consulted. States post left foot I & D 02/10/[address] Shields. Operative report reviewed. Extensive infection noted, but no evidence of bone involvement. The pus did penetrate the plantar fascia.Status post repeat washout 02/12/17. Operative note reviewed and no additional infection was noted. Continue Vancomycin IV. Pharmacy to dose. Goal trough ~15.Per ID duration of treatment depends on the clinical picture, but likely 4 weeks of IV antibiotics. Patient need weekly CBC, BUN/Cr, ESR, CRP, and Vanc trough Will need weekly PICC care.Follow up with ID two weeks post-discharge.Repeat blood cultures x 2 sets negative ,TTE no evidence of vegetation and cardiac echo . Wound culture grew MRSA which was sensitive to ciprofloxacin and clindamycin doxycycline Levaquin and Zyvox rifampin pain Bactrim daptomycin . Infectious disease to follow up patient at [facility] may consider stepdown antibiotic if possible. I had long discussion with patient counseling about IV drug use counseling about long- term complication - Time Spent with Patient Total time spent providing and/or coordinating discharge services: Greater than 30 minutes - Constitutional Vitals: Temp Pulse Resp BP Pulse Ox 98.4 F 103 16 131/82 97 02/20/17 11:47 02/20/17 11:47 02/20/17 11:47 02/20/17 11:47 02/20/17 11:47 General appearance: Present: cooperative, A&O X 3, pleasant, no acute distress, answers questions appropriately - VTE Documentation of Mechanical Device: Intermittent pneumatic compression device
[2017-02-20] MEDS ORDERED: Vancomycin (wt based) 1,000 MG VIAL IVPB SCH (18:00)
[2017-02-20] MEDS ORDERED: Vancomycin 1,500 MG in D5% in Water 250 ML IVPB SCH (21:00)
[2017-02-20] MEDS ORDERED: Aminoglycoside Consult 1 EACH MC ONE (21:12)
== END 2017-02-20 21:13 | disposition other institution (70) | DRG 364 ==
LOC: 3NENU → SUATTDRO 02-09 02:28
PROVIDERS: ADMIT Internal Medicine; ATTEND Student in an Organized Health Care Education/Training Program

== ENCOUNTER 2018-12-14 09:31 | Inpatient (IN) ==
[2018-12-14] MEDS ORDERED: *HR* HYDROmorphone (PF) 1 MG/ML SYRINGE IVP ONE ×2 (09:57→12:55)
[2018-12-14] MEDS ORDERED: Ondansetron 4 MG/2 ML VIAL IVP ONE (09:57)
[2018-12-14] MEDS ORDERED: Vancomycin 1,000 MG VIAL IVPB ONE (09:57)
[2018-12-14] MEDS ORDERED: Isovue-370 500 ML BOTTLE IVP ONE (09:57)
[2018-12-14] MEDS ORDERED: 0.9 % Sodium Chloride 1,000 ML IVC ONE (09:57)
[2018-12-14] MEDS ORDERED: Td (TENIVAC) Vaccine 0.5 ML VIAL IM ONE (09:57)
--- NOTE | 2018-12-14 10:06 | Emergency Department Note ---
Disposition Clinical Impression: IV drug user Myositis Qualifiers: Myositis type: infective Myositis location: upper extremity Laterality: right Qualified Code(s): M60.000 - Infective myositis, unspecified right arm Abscess of skin or subcutaneous tissue Qualifiers: Site of cutaneous abscess: extremity Site of cutaneous abscess of extremity: upper extremity Laterality: right Qualified Code(s): L02.413 - Cutaneous abscess of right upper limb Disposition: Admitted As Inpatient Condition: Fair Referrals: NONE,PCP [Primary Care Provider] - Forms: ED Satisfaction Letter Time of Disposition: 12:09 Skin/Abscess/FB HPI Chief complaint: ED Skin/Abscess/Foreign Body Stated complaint: right arm swelling Time Seen by Provider: 12/14/18 09:35 Source: patient Mode of arrival: private vehicle Limitations: no limitations Nursing Notes Reviewed: Yes Vital Signs Reviewed: Yes HPI Narrative: Right forearm swelling and pain x 4 days Pt Subjective Complaint: abscess/boil, other (swelling and redness) Onset (ago): day(s) (4) Tetanus Up to Date: no Location: RUE Severity: severe Quality: aching, sharp Consistency: constant Improves with: immobilization Worsens with: palpation, movement (of wrist) Context: IVDA Associated symptoms: Reports: myalgias. Denies: fever, chills, rigors, itching, nausea, vomiting, malaise, arthralgias Treatments prior to arrival: none Home Medications Medication Instructions Recorded Confirmed No Known Home Drugs 12/14/18 12/14/18 Allergies Allergy/AdvReac Type Severity Reaction Status Date / Time Amoxicillin Allergy Difficulty Verified 02/08/17 15:41 Breathing promethazine [From Phenergan] Allergy Agitated Verified 02/08/17 15:41 All systems ED: reviewed and negative except as stated. Review of Systems: As Per HPI Constitutional: Denies: fever, chills, weakness Cardiovascular: Denies: chest pain, palpitations, dyspnea on exertion, syncope Respiratory: Denies: cough, dyspnea, wheezes Gastrointestinal: Denies: abdominal pain, nausea, vomiting Musculoskeletal: Reports: as per HPI, myalgia. Denies: back pain, neck pain, joint swelling, arthralgia Integumentary: Denies: rash Neurological: Denies: headache, weakness, numbness, paresthesias Hematological/Lymphatic: Denies: easy bleeding, easy bruising, lymphadenopathy Past Medical History - Past Medical History Attestation: Yes The following information was validated with the patient. Source: patient Medical history: Reports: hepatitis, other Surgical history: Reports: orthopedic, other Psychiatric history: Reports: anxiety, panic disorder, PTSD - Social History Smoking Status: Current every day smoker Smokeless Tobacco Status: No Alcohol use: Reports: occasionally Drug use: Reports: opiates, marijuana, methamphetamine, IV Drug Use Physical Exam - General Limitations: no limitations General appearance: alert, in no apparent distress - Head Head exam: atraumatic, normocephalic, normal inspection - Eye Eye exam: Present: normal appearance, PERRL. Absent: scleral icterus, conjunctival injection, miosis, mydriasis, periorbital swelling - ENT ENT exam: normal oropharynx, mucous membranes moist - Neck Neck exam: Present: normal inspection, full ROM, trachea midline. Absent: tenderness, meningismus - Respiratory Respiratory exam: Present: normal lung sounds bilaterally. Absent: respiratory distress, wheezes - Cardiovascular Cardiovascular exam: Present: regular rate, normal rhythm, normal heart sounds. Absent: systolic murmur, diastolic murmur - Extremities Exam Extremities exam: Present: normal capillary refill - Expanded Upper Extremity Exam Shoulder exam: Present: normal inspection Arm exam: Present: normal inspection Elbow exam: Present: normal inspection Forearm/Wrist exam: Present: tenderness, swelling (circumferential proximal > distal), erythema Hand exam: Present: normal inspection, full ROM. Absent: tenderness, swelling, erythema Neuromotor exam: Normal: wrist extension, thumb opposition, thumb IP flexion, thumb adduction, fingers 2-5 abduction Neurosensory exam: Normal: radial nerve, ulnar nerve, median nerve Hand tendon exam: Normal: flexor digitorum profundus (location), flexor digitorum superficialis (location), extensor tendon (location) Vascular exam: Normal: capillary refill, radial pulse, ulnar pulse - Neurological Exam Neurological exam: Present: alert, oriented X3, CN II-XII intact, normal gait - Psychiatric Psychiatric exam: Present: normal affect, normal mood - Skin Skin exam: Present: warm, dry, intact, normal color Course Course Narrative: Patient with Hx of IVDA presents for eval of right FA redness, swelling and pain x 4 -5 days. Last drug use was 2 days ago. He injects heroine and "ice". He denies paraesthesias or weakness, fever, chills, nausea or vomiting. He is right handed. Hx of hepatitis. On exam he appears uncomfortable but non toxic. No fever,chills, nausea or vomiting. The right forearm is circumferentially erythematous. Edema is most pronounced in the proximal volar area and tapers down distally. He has normal radial and ulnar pulses and the extremity is warm with normal cap refill. Do not suspect compartment syndrome at this time. Likely myositis with a deep abscess. Less likely to be myonecrosis as mentioned on CT as the pain has been present for a few days, he has normal cpk and normal perfusion. Ortho paged. Case discussed with Dr. Mckinley via his surgical nurse. He states that he will see the patient this afternoon / evening and requests that the hospitalist admit the patient. Case discussed with Dr. Reich. He has accepted the patient. Vital Signs Temperature 98.3 F 12/14/18 09:34 Pulse Rate 103 12/14/18 09:34 Respiratory Rate 19 12/14/18 09:34 Blood Pressure 132/83 12/14/18 09:34 O2 Sat by Pulse Oximetry 98 12/14/18 09:34 Temperature 98.3 F 12/14/18 09:34 Pulse Rate 103 12/14/18 09:34 Respiratory Rate 19 12/14/18 09:34 Blood Pressure 132/83 12/14/18 09:34 O2 Sat by Pulse Oximetry 98 12/14/18 09:34 Oxygen Delivery Oxygen Delivery Room Air Skin/Abscess/Foreign Body - Medical Records Medical records reviewed: Yes I reviewed the patient's medical records. - Lab Data Lab results reviewed: Yes I reviewed the patient's lab results. Lab results narrative: Laboratory Last Values WBC 14.6 K/mcL (4.3-11.1) H 12/14/18 10:20 RBC 4.43 M/mcL (4.19-5.50) 12/14/18 10:20 Hgb 13.4 g/dL (12.9-16.9) 12/14/18 10:20 Hct 40.0 % (37.5-50.1) 12/14/18 10:20 MCV 90.3 fL (83.0-100.0) 12/14/18 10:20 MCH 30.2 pg (28.0-33.3) 12/14/18 10:20 MCHC 33.5 g/dL (31.6-35.5) 12/14/18 10:20 RDW 14.5 % (11.5-14.5) 12/14/18 10:20 Plt Count 182 K/mcL (140-400) 12/14/18 10:20 MPV 9.5 fL (9.4-12.4) 12/14/18 10:20 Immature Gran % 0.9 % (0-4) 12/14/18 10:20 Seg Neutrophils % 85.0 % 12/14/18 10:20 Lymphocytes % 8.7 % 12/14/18 10:20 Monocytes % 5.2 % 12/14/18 10:20 Eosinophils % 0.1 % 12/14/18 10:20 Basophils % 0.1 % 12/14/18 10:20 Neutrophils # 12.4 K/mcL (1.6-8.9) H 12/14/18 10:20 Lymphocytes # 1.3 K/mcL (0.6-4.6) 12/14/18 10:20 Monocytes # 0.8 K/mcL (0.0-1.3) 12/14/18 10:20 Eosinophils # 0.0 K/mcL (0.0-0.6) 12/14/18 10:20 Basophils # 0.0 K/mcL (0.0-0.2) 12/14/18 10:20 PT 14.5 Seconds (9.4-12.1) H 12/14/18 10:20 INR 1.3 12/14/18 10:20 Sodium 130 mEq/L (136-145) L 12/14/18 10:20 Potassium 4.1 mEq/L (3.5-5.1) 12/14/18 10:20 Chloride 95 mEq/L (98-107) L 12/14/18 10:20 Carbon Dioxide 26 mEq/L (23-29) 12/14/18 10:20 BUN 18 mg/dL (6-20) 12/14/18 10:20 Creatinine 0.57 mg/dL (0.70-1.30) L 12/14/18 10:20 Est GFR ( Amer) > 60 (> 60) 12/14/18 10:20 Est GFR (Non-Af Amer) > 60 (> 60) 12/14/18 10:20 BUN/Creatinine Ratio 32 (6-26) H 12/14/18 10:20 Glucose 171 mg/dL (70-105) H 12/14/18 10:20 Calculated Osmolality 276 (280-300) L 12/14/18 10:20 Lactic Acid 1.5 mmol/L (0.5-2.2) 12/14/18 10:20 Calcium 9.3 mg/dL (8.6-10.3) 12/14/18 10:20 Creatine Kinase 30 Units/L (30-223) 12/14/18 10:20 Result diagrams: 12/14/18 10:20 12/14/18 10:20 Lab Results 12/14/18 12/14/18 12/14/18 Range/Units 10:20 10:20 10:20 WBC 14.6 H (4.3-11.1) K/mcL RBC 4.43 (4.19-5.50) M/mcL Hgb 13.4 (12.9-16.9) g/dL Hct 40.0 (37.5-50.1) % MCV 90.3 (83.0-100.0) fL MCH 30.2 (28.0-33.3) pg MCHC 33.5 (31.6-35.5) g/dL RDW 14.5 (11.5-14.5) % Plt Count 182 (140-400) K/mcL MPV 9.5 (9.4-12.4) fL Immature Gran % 0.9 (0-4) % Seg Neutrophils % 85.0 % Lymphocytes % 8.7 % Monocytes % 5.2 % Eosinophils % 0.1 % Basophils % 0.1 % Neutrophils # 12.4 H (1.6-8.9) K/mcL Lymphocytes # 1.3 (0.6-4.6) K/mcL Monocytes # 0.8 (0.0-1.3) K/mcL Eosinophils # 0.0 (0.0-0.6) K/mcL Basophils # 0.0 (0.0-0.2) K/mcL PT (9.4-12.1) Seconds INR Sodium 130 L (136-145) mEq/L Potassium 4.1 (3.5-5.1) mEq/L Chloride 95 L (98-107) mEq/L Carbon Dioxide 26 (23-29) mEq/L BUN 18 (6-20) mg/dL Creatinine 0.57 L (0.70-1.30) mg/dL Est GFR ( Amer) > 60 (> 60) Est GFR (Non-Af Amer) > 60 (> 60) BUN/Creatinine Ratio 32 H (6-26) Glucose 171 H (70-105) mg/dL Calculated Osmolality 276 L (280-300) Lactic Acid 1.5 (0.5-2.2) mmol/L Calcium 9.3 (8.6-10.3) mg/dL Creatine Kinase 30 (30-223) Units/L 12/14/18 Range/Units 10:20 WBC (4.3-11.1) K/mcL RBC (4.19-5.50) M/mcL Hgb (12.9-16.9) g/dL Hct (37.5-50.1) % MCV (83.0-100.0) fL MCH (28.0-33.3) pg MCHC (31.6-35.5) g/dL RDW (11.5-14.5) % Plt Count (140-400) K/mcL MPV (9.4-12.4) fL Immature Gran % (0-4) % Seg Neutrophils % % Lymphocytes % % Monocytes % % Eosinophils % % Basophils % % Neutrophils # (1.6-8.9) K/mcL Lymphocytes # (0.6-4.6) K/mcL Monocytes # (0.0-1.3) K/mcL Eosinophils # (0.0-0.6) K/mcL Basophils # (0.0-0.2) K/mcL PT 14.5 H (9.4-12.1) Seconds INR 1.3 Sodium (136-145) mEq/L Potassium (3.5-5.1) mEq/L Chloride (98-107) mEq/L Carbon Dioxide (23-29) mEq/L BUN (6-20) mg/dL Creatinine (0.70-1.30) mg/dL Est GFR ( Amer) (> 60) Est GFR (Non-Af Amer) (> 60) BUN/Creatinine Ratio (6-26) Glucose (70-105) mg/dL Calculated Osmolality (280-300) Lactic Acid (0.5-2.2) mmol/L Calcium (8.6-10.3) mg/dL Creatine Kinase (30-223) Units/L - Radiology Data Radiology results reviewed: Yes I reviewed the patient's radiology results. Upper Extremity CT 12/14/18 09:57 IMPRESSION: Large focal fluid collection in the mid to proximal ventral-radial forearm which demonstrates partial enhancing rim. This is centered intramuscular but appears to extend extramuscular into the overlying subcutaneous fat. This grossly measures 11.6 x 6.7 x 3.1 cm and is concerning for abscess/phlegmon. Myonecrosis could have a similar appearance. No soft tissue gas or gas internal to the collection noted. No radiopaque foreign bodies. Superimposed diffuse subcutaneous edema to the forearm compatible with cellulitis. No acute bony abnormalities. No CT evidence for osteomyelitis. D/ / 12/14/2018 11:18:49 Armin Flannery MD / angie Interpreting Provider: Armin Flannery MD
[2018-12-14 10:34] LABS: Basophils % 0.1 %; Eosinophils % 0.1 %; Hemoglobin 13.4 g/dL (12.9-16.9); Immature Granulocytes % 0.9 % (0-4); Lymphocytes # 1.3 K/mcL (0.6-4.6); Lymphocytes % 8.7 %; Mean Corpuscular HGB Conc 33.5 g/dL (31.6-35.5); Mean Corpuscular Hemoglobin 30.2 pg (28.0-33.3); Mean Corpuscular Volume 90.3 fL (83.0-100.0); Mean Platelet Volume 9.5 fL (9.4-12.4); Monocytes # 0.8 K/mcL (0.0-1.3); Monocytes % 5.2 %; Neutrophils # 12.4 K/mcL (1.6-8.9); Platelet Count 182 K/mcL (140-400); Red Blood Count 4.43 M/mcL (4.19-5.50); Red Cell Distribution Width 14.5 % (11.5-14.5); White Blood Count 14.6 K/mcL (4.3-11.1)
[2018-12-14 11:00] LABS: BUN/Creatinine Ratio 32 (6-26); Blood Urea Nitrogen 18 mg/dL (6-20); Calcium 9.3 mg/dL (8.6-10.3); Carbon Dioxide 26 mEq/L (23-29); Chloride 95 mEq/L (98-107); Glucose 171 mg/dL (70-105); Osmolality,Calculated 276 (280-300); Potassium 4.1 mEq/L (3.5-5.1); Sodium 130 mEq/L (136-145); eGFR For African Americans > 60 (> 60); eGFR For Non-African Americans > 60 (> 60)
[2018-12-14 12:35] LABS: Creatine Kinase 30 Units/L (30-223); INR 1.3; Prothrombin Time 14.5 Seconds (9.4-12.1)
[2018-12-14] MEDS ORDERED: Nicotine 21 MG PATCH.TD24 TD ONE (14:22)
[2018-12-14] MEDS ORDERED: Naloxone 0.4 MG/ML INJ IVP PRN (15:33)
[2018-12-14] MEDS ORDERED: *HR* LORazepam 2 MG/ML VIAL IVP PRN (15:41)
--- NOTE | 2018-12-14 15:41 | Internal Med History&Physical ---
<Cristel Hall E - Last Filed: 12/14/18 16:49> Date of Encounter: 12/14/18 Time of Encounter: 15:45 Internal Medicine - H&P: HPI Chief complaint: Arm Pain Admitted From: Home Plans for Post Hospital Care: Home History of present illness: Mr. Montenegro is a 48 year old male with a past medical history of hepatitis C, PTSD, possible schizophrenia. Current IV drug user with heroin, ice, also smokes marijuana as well as cigarettes. Currently is homeless. Currently not on any medications. Last IV drug use 2 days ago heroin and ice. Patient comes to ED with complaints of right arm pain and swelling. He states this started 4 days ago on a "bug bite" he says that the swelling is continuously gotten worse and really "got worse and swelled terribly "this morning. He does state that he has had fevers and chills as well as some shaking, sweating, nausea, and his chronic back pain. He states he does have a little bit of chest tightness at this time that this is normal for him when he is withdrawing. Upper extremity CT showed large focal fluid collection in the mid to proximal ventralradial forearm which demonstrates partial enhanced rim. This is centered intramuscular but appears to extend extra muscular into the overlying subcutaneous fat. This grossly measures 11.6 x 6.7 x 3.1 cm and is concerning for abscess/phlegmon. Myonecrosis could have a similar appearance. No soft tissue gas or gas internal to the collection noted. No radiopaque foreign bodies. Superimposed diffuse subcutaneous edema to the forearm compatible with cellulitis. No acute bony abnormalities. No CT evidence of osteomyelitis. Vitals on arrival temperature 98.3, pulse rate 103, respiratory rate 19, blood pressure 132/83, oxygen saturation 98% on room air. Labs on arrival white blood cell count of 14.6, hemoglobin of 13.4, hematocrit 40, platelet count 182, PT of 14.5, INR of 1.3, sodium 1:30, potassium 4.1, chloride 95, BUN of 18, creatinine 0.57, GFR of greater than 60. Total bilirubin 1.6, direct bili 0.7, indirect bili 0.9, AST of 53, AST of 90, alkaline phosphatase of 135. Urine drug screen showed positive for opiates as well as amphetamines Cultures ordered Denies Family history of medical conditions Past Med Surg Social Fam HX - Past Medical History Medical history: hepatitis, other Additional medical history: MRSA in blood 01/29/17 Psychiatric history: anxiety, panic disorder, PTSD - Past Surgical History Surgical History: orthopedic, other Additional surgical history: Back surgery - Social History Smoking Status: Current every day smoker Smokeless Tobacco Status: No Alcohol use: occasionally Drug use: opiates, marijuana, methamphetamine, IV Drug Use - Family History Mother Living Status: Hx Family Cancer: Yes (Colon) Father Living Status: Hx Family Cardiac Disorders: Yes (Heart attack) Internal Medicine - H&P: Meds No Known Home Drugs 12/14/18 [History] Allergy/AdvReac Type Severity Reaction Status Date / Time Amoxicillin Allergy Difficulty Verified 02/08/17 15:41 Breathing promethazine [From Phenergan] Allergy Agitated Verified 02/08/17 15:41 All Systems PM: A 10-system review of systems was performed and is negative for pertinent findings except as documented above in the HPI. - Constitutional Constitutional: chills, fever(s), no lethargy, no weakness - EENT Eyes: no blurry vision - Cardiovascular Cardiovascular ROS IM: chest pain, palpitations, no irregular heart rhythm - Respiratory Respiratory: no cough, no wheezing, no change in phlegm color - Gastrointestinal Gastrointestinal: no abdominal pain, no nausea, no vomiting - Genitourinary Genitourinary ROS male: no difficulty urinating, no dysuria - Musculoskeletal Musculoskeletal ROS IM: myalgias, no muscle weakness - Integumentary Integumentary IM: new lesions Additional comments: as per hpi - Neurological Neurological ROS: no abnormal movements, no focal weakness, no headache(s) - Constitutional Vitals: Temp Pulse Resp BP Pulse Ox 98.3 F 101 19 131/74 99 12/14/18 09:34 12/14/18 13:20 12/14/18 13:20 12/14/18 13:20 12/14/18 13:20 General appearance: Present: mild distress, A&O X 3 Exam: As noted - Head Head exam: Present: atraumatic, normal inspection, normocephalic - Eye Eye exam: Present: PERRL (Pupils pinpoint) - ENT ENT exam: Present: mucous membranes dry - Neck Neck exam general surgery: Present: full ROM - Respiratory Respiratory exam: Present: CTAB. Absent: rales, rhonchi, wheezes - Cardiovascular Cardiovascular exam: Present: RRR. Absent: diastolic murmur, rubs, systolic murmur - GI/Abdominal GI/Abdominal exam: Present: normal bowel sounds. Absent: rebound, rigid - Extremities Exam Extremities exam: Present: tenderness, warm Additional comments: Right forearm swelling, tenderness, erythema. Decreased movement within hand due to pain. Erythema spreads to mid upper arm as well as within 3 inches of the wrist. - Neurological Exam Neurological exam: Present: CN II-XII intact, reflexes normal - Psychiatric Psychiatric exam: Present: agitated, anxious - Skin Additional comments: Track mary noted in the antecubital crease bilaterally Right hallux toenail dark and Left fourth digit foot darken toenail Internal Med - H&P Results - Labs CBC & Chem 7: 12/14/18 10:20 12/14/18 10:20 Labs: Short CBC 12/14/18 Range/Units 10:20 WBC 14.6 H (4.3-11.1) K/mcL Hgb 13.4 (12.9-16.9) g/dL Hct 40.0 (37.5-50.1) % Plt Count 182 (140-400) K/mcL Neutrophils # 12.4 H (1.6-8.9) K/mcL BMP 12/14/18 10:20 Sodium 130 L Potassium 4.1 Chloride 95 L Carbon Dioxide 26 BUN 18 Creatinine 0.57 L Glucose 171 H Calcium 9.3 - Impressions ITS Impressions Upper Extremity CT 12/14/18 09:57 IMPRESSION: Large focal fluid collection in the mid to proximal ventral-radial forearm which demonstrates partial enhancing rim. This is centered intramuscular but appears to extend extramuscular into the overlying subcutaneous fat. This grossly measures 11.6 x 6.7 x 3.1 cm and is concerning for abscess/phlegmon. Myonecrosis could have a similar appearance. No soft tissue gas or gas internal to the collection noted. No radiopaque foreign bodies. Superimposed diffuse subcutaneous edema to the forearm compatible with cellulitis. No acute bony abnormalities. No CT evidence for osteomyelitis. D/ / 12/14/2018 11:18:49 Armin Flannery MD / angie Interpreting Provider: Armin Flannery MD - Assessment and Plan (1) Abscess of skin or subcutaneous tissue Current Visit: Yes Status: Acute Assessment and plan: Patient started on clindamycin for coverage of MRSA Patient has history of MRSA infection of abscesses CT shows Large focal fluid collection in the mid to proximal ventral-radial forearm which demonstrates partial enhancing rim. This is centered intramuscular but appears to extend extramuscular into the overlying subcutaneous fat. This grossly measures 11.6 x 6.7 x 3.1 cm and is concerning for abscess/phlegmon. Myonecrosis could have a similar appearance. No soft tissue gas or gas internal to the collection noted. No radiopaque foreign bodies. Superimposed diffuse subcutaneous edema to the forearm compatible with cellulitis.No acute bony abnormalities. No CT evidence for osteomyelitis. ER consulted orthopedic surgery for possible drainage of abscess Continue to monitor patient Treatment pain is necessary Nothing by mouth Qualifiers: Site of cutaneous abscess: extremity Site of cutaneous abscess of extremity: upper extremity Laterality: right Qualified Code(s): L02.413 - Cutaneous abscess of right upper limb (2) Chronic back pain Current Visit: No Status: Chronic Assessment and plan: She has chronic back pain from previous back surgery Patient is receiving pain management at this time Qualifiers: Back pain location: low back pain Back pain laterality: unspecified Sciatica presence: without sciatica Qualified Code(s): M54.5 - Low back pain; G89.29 - Other chronic pain; G89.29 - Other chronic pain (3) Hepatitis C Current Visit: No Status: Chronic Assessment and plan: Liver enzymes noted to be AST 53, ALC of 90, alkaline phosphatase of 135 Hepatitis panel ordered Qualifiers: Viral hepatitis chronicity: chronic Hepatic coma status: without hepatic coma Qualified Code(s): B18.2 - Chronic viral hepatitis C (4) Tobacco dependence Current Visit: No Status: Chronic Assessment and plan: Patient states he has not been smoking much lately We will use nicotine patch if necessary (5) IV drug user Current Visit: Yes Status: Chronic Assessment and plan: Patient is a current drug user of IV heroin and ice We will have patient on C1 protocol due to ice use within the last 2 days and withdrawal symptoms Try to manage pain without narcotic medications if possible Patient was given 1 g IV Tylenol every 6 currently If needed we can treat with Toradol every 6 hours or oxycodone 5 mg sublingual Patient is willing to do inpatient rehabilitation if necessary after this h ospital stay (6) DVT prophylaxis Current Visit: No Status: Acute Assessment and plan: Subcutaneous heparin - Time Spent With Patient Total time spent is greater than 50% in coordination of care (as documented) at patient's floor/unit and/or counseling patient: <Med Bran - Last Filed: 12/14/18 17:30> Date of Encounter: 12/14/18 Time of Encounter: 17:28 Internal Medicine - H&P: HPI History of present illness: Mr. Montenegro is a 48 year old male All Systems PM: A 10-system review of systems was performed and is negative for pertinent findi ngs except as documented above in the HPI. - Constitutional Vitals: Temp Pulse Resp BP Pulse Ox 98.6 F 95 16 117/75 99 12/14/18 16:54 12/14/18 16:54 12/14/18 16:54 12/14/18 16:54 12/14/18 13:20 Internal Med - H&P Results - Labs CBC & Chem 7: 12/14/18 10:20 12/14/18 10:20 Labs: Short CBC 12/14/18 Range/Units 10:20 WBC 14.6 H (4.3-11.1) K/mcL Hgb 13.4 (12.9-16.9) g/dL Hct 40.0 (37.5-50.1) % Plt Count 182 (140-400) K/mcL Neutrophils # 12.4 H (1.6-8.9) K/mcL BMP 12/14/18 10:20 Sodium 130 L Potassium 4.1 Chloride 95 L Carbon Dioxide 26 BUN 18 Creatinine 0.57 L Glucose 171 H Calcium 9.3 Liver Function 12/14/18 Range/Units 10:20 Total Bilirubin 1.6 H (0.3-1.0) mg/dL Direct Bilirubin 0.7 H (0.0-0.2) mg/dL AST 53 H (13-39) Units/L ALT 90 H (7-52) Units/L Alkaline Phosphatase 135 H (34-104) Units/L Albumin 3.5 (3.5-5.7) g/dL - Impressions ITS Impressions Upper Extremity CT 12/14/18 09:57 IMPRESSION: Large focal fluid collection in the mid to proximal ventral-radial forearm which demonstrates partial enhancing rim. This is centered intramuscular but appears to extend extramuscular into the overlying subcutaneous fat. This grossly measures 11.6 x 6.7 x 3.1 cm and is concerning for abscess/phlegmon. Myonecrosis could have a similar appearance. No soft tissue gas or gas internal to the collection noted. No radiopaque foreign bodies. Superimposed diffuse subcutaneous edema to the forearm compatible with cellulitis. No acute bony abnormalities. No CT evidence for osteomyelitis. D/ / 12/14/2018 11:18:49 Armin Flannery MD / angie Interpreting Provider: Armin Flannery MD - Time Spent With Patient Total time spent is greater than 50% in coordination of care (as documented) at patient's floor/unit and/or counseling patient: - Attending Attestation I saw evaluated and examined this patient and reviewed past medical, family, social histories and objective data including labs and my medical decision- making was reviewed with the Resident Physician, Cristel Hall. I agree with the documented findings, disposition and treatment plan as described except to any changes set forth below. We independently had [id number] contact with the patient. Patient with history of IV drug abuse, presented to the ER with complaints of pain and swelling in his right forearm that has progressed over the past 24-48 hours. Pain is severe. Patient complains of chills and tremors at this time. No hallucinations. CT scan of the right forearm shows underlying abscess/phlegmon. On exam, significant right upper extremity swelling especially over the right forearm mainly on the medial surface with tenderness to palpation. Patient has difficulty moving his fingers of the right upper extremity. Consulted orthopedics. CPK levels were normal. Will place patient on IV antibiotics-clindamycin for now. Monitor vital signs. Follow orthopedic recommendations. Monitor for withdrawal symptoms and treatment per [facility] protocol. High risk for complications.
[2018-12-14] MEDS ORDERED: 0.9 % Sodium Chloride 1,000 ML IVC SCH (15:45)
[2018-12-14 16:00] LABS: Alanine Aminotransferase 90 Units/L (7-52); Albumin 3.5 g/dL (3.5-5.7); Albumin/Globulin Ratio 0.8 (1.1-2.2); Alkaline Phosphatase 135 Units/L (34-104); Aspartate Amino Transferase 53 Units/L (13-39); Bilirubin,Direct 0.7 mg/dL (0.0-0.2); Bilirubin,Indirect 0.9 mg/dL (0.0-1.2); Bilirubin,Total 1.6 mg/dL (0.3-1.0); Globulin 4.4 g/dL (2.4-3.5); Total Protein 7.9 g/dL (6.4-8.9)
[2018-12-14 16:26] LABS: Hepatitis B Surface Antigen Nonreactive (Nonreactive)
[2018-12-14 16:37] LABS: Amphetamine Screen,Urine Positive ng/mL (Cutoff=1000); Barbiturate Screen,Urine Negative ng/mL (Cutoff=200); Benzodiazepines Screen,Urine Negative ng/mL (Cutoff=200); Cannabinoid Screen,Urine Negative ng/mL (Cutoff = 50); Cocaine Screen,Urine Negative ng/mL (Cutoff= 300); Opiate Screen,Urine Positive ng/mL (Cutoff=300); Phencyclidine Screen,Urine Negative ng/mL (Cutoff=25)
[2018-12-14 16:55] LABS: Hepatitis B Core IgM Nonreactive (Nonreactive)
[2018-12-14 16:57] LABS: Hepatitis A Antibody IgM Nonreactive (Nonreactive)
[2018-12-14] MEDS ORDERED: Acetaminophen IV 1,000 MG/100 ML INFUS..BTL IVPB SCH (18:00)
[2018-12-14] MEDS: *HR* LORazepam 2 MG/ML VIAL IVP PRN (18:06)
[2018-12-14] MEDS: Clindamycin 600 MG/50 ML 600 MG/50 ML IV.SOLN IVPB SCH (18:16)
[2018-12-14] MEDS ORDERED: traMADol 50 MG TABLET PO ONE (19:53)
[2018-12-14] MEDS: *HR* Heparin 5,000 UNIT/ML VIAL SQ SCH (20:07)
[2018-12-14] MEDS: 0.9 % Sodium Chloride 1,000 ML IVC SCH (20:15)
[2018-12-14 21:02] LABS: Hepatitis C Virus Antibody Reactive (Nonreactive)
[2018-12-14] MEDS: Acetaminophen IV 1,000 MG/100 ML INFUS..BTL IVPB SCH ×2 (21:18→23:59)
[2018-12-15] MEDS: Clindamycin 600 MG/50 ML 600 MG/50 ML IV.SOLN IVPB SCH ×2 (00:26→07:55)
--- NOTE | 2018-12-15 01:09 | Orthopedic Consult Note ---
Date of Encounter: 12/15/18 Time of Encounter: 01:03 History of Present Illness Chief complaint: Right elbow pain and swelling HPI: Mr. Montenegro is a 48 year old [id number] male the history of several days of pain and swelling about the right forearm. Patient states that this began either spontaneously or after a bite. Patient states that the arm has become mo re painful and swollen. He presented to the emergency room and [facility] with these complaints and was admitted with an infectious process and right forearm. Patient states that he is able to move his hand and fingers toed is becoming more painful. I have reviewed the patient's completed history and physical examination as well as completed medical record. Pertinent orthopedic examination reveals a 48-year-old gentleman with a markedly inflamed and erythematous right forearm especially the dorsal surface. There is fluctuance. Neurosensory exam is intact. Finger motion is intact though causing pain. Laboratory data does included WBC of 14.6 and a elevated pro time. Patient is hep C positive. CT scan reveals a large forearm fluid collection consistent with an abscess. Please see the report for details. Impression: Forrearm abscess right upper extremity Recommendation: Unfortunately by the time I saw the patient he had eaten dinner and had been taking liquids orally. The patient will require a formal incision and drainage of this probable abscess. I will be unable to attend to the patient today, I will be able to proceed with the surgery on 12/16/2018 that the patient may need a more urgent incision and drainage. We will speak with available orthopedic surgeons to see if he can be attended to on a more timely basis. Will maintain nothing by mouth and proceed with intervention when appropriate. Continue with intravenous antibiotics to maintain adequate tissue levels. Thank you for allowing me to seen care for Mr. Montenegro. Sincerely, Jet roman,DO Past Med Surg Social Fam HX - Past Medical History Medical history: hepatitis, other Additional medical history: chronic back pain, hepatitis C Psychiatric history: anxiety, panic disorder, PTSD - Past Surgical History Surgical History: orthopedic, other Additional surgical history: Back surgery - Social History Smoking Status: Current every day smoker Smokeless Tobacco Status: No Alcohol use: none Drug use: opiates, marijuana, methamphetamine, IV Drug Use - Family History Mother Living Status: Hx Family Cancer: Yes (Colon) Father Living Status: Hx Family Cardiac Disorders: Yes (Heart attack) Medications and Allergies No Known Home Drugs 12/14/18 [History] Allergy/AdvReac Type Severity Reaction Status Date / Time Amoxicillin Allergy Difficulty Verified 02/08/17 15:41 Breathing promethazine [From Phenergan] Allergy Agitated Verified 02/08/17 15:41 All Systems Reviewed: The remainder of the systems were reviewed and are negative Physical Exam - Constitutional Vitals: Temp Pulse Resp BP Pulse Ox 98.0 F 92 16 151/86 98 12/14/18 23:22 12/14/18 23:22 12/14/18 23:22 12/14/18 23:22 12/14/18 23:22 Results - Labs Result Diagrams: 12/14/18 10:20 12/14/18 10:20 Labs: Abnormal lab results WBC 14.6 K/mcL (4.3-11.1) H 12/14/18 10:20 Neutrophils # 12.4 K/mcL (1.6-8.9) H 12/14/18 10:20 PT 14.5 Seconds (9.4-12.1) H 12/14/18 10:20 Sodium 130 mEq/L (136-145) L 12/14/18 10:20 Chloride 95 mEq/L (98-107) L 12/14/18 10:20 Creatinine 0.57 mg/dL (0.70-1.30) L 12/14/18 10:20 BUN/Creatinine Ratio 32 (6-26) H 12/14/18 10:20 Glucose 171 mg/dL (70-105) H 12/14/18 10:20 POC Glucose 120 mg/dL (70-99) H 12/14/18 19:49 Calculated Osmolality 276 (280-300) L 12/14/18 10:20 Total Bilirubin 1.6 mg/dL (0.3-1.0) H 12/14/18 10:20 Direct Bilirubin 0.7 mg/dL (0.0-0.2) H 12/14/18 10:20 AST 53 Units/L (13-39) H 12/14/18 10:20 ALT 90 Units/L (7-52) H 12/14/18 10:20 Alkaline Phosphatase 135 Units/L (34-104) H 12/14/18 10:20 Globulin 4.4 g/dL (2.4-3.5) H 12/14/18 10:20 Albumin/Globulin Ratio 0.8 (1.1-2.2) L 12/14/18 10:20 Urine Opiates Screen Positive ng/mL (Yehuni=400) H 12/14/18 14:00 Ur Amphetamines Screen Positive ng/mL (Liqvaa=2547) H 12/14/18 14:00 Hepatitis C Ab Screen Reactive (Nonreactive) H 12/14/18 10:20 H & H 12/14/18 Range/Units 10:20 Hgb 13.4 (12.9-16.9) g/dL Hct 40.0 (37.5-50.1) % All other labs normal. - Diagnostic results Elbow CT: image reviewed Consult Discharge Plan - Plan Referrals: NONE,PCP [Primary Care Provider] -
[2018-12-15] MEDS ORDERED: *HR* OxyCODONE Immed Rel 5 MG TABLET PO ONE (03:52)
[2018-12-15 05:12] LABS: Basophils % 0.3 %; Eosinophils % 0.2 %; Hematocrit 39.5 % (37.5-50.1); Hemoglobin 12.9 g/dL (12.9-16.9); Immature Granulocytes % 0.6 % (0-4); Lymphocytes # 1.4 K/mcL (0.6-4.6); Lymphocytes % 12.2 %; Mean Corpuscular HGB Conc 32.7 g/dL (31.6-35.5); Mean Corpuscular Hemoglobin 30.4 pg (28.0-33.3); Mean Corpuscular Volume 93.2 fL (83.0-100.0); Mean Platelet Volume 9.3 fL (9.4-12.4); Monocytes # 0.7 K/mcL (0.0-1.3); Monocytes % 6.2 %; Neutrophils # 8.9 K/mcL (1.6-8.9); Platelet Count 153 K/mcL (140-400); Red Blood Count 4.24 M/mcL (4.19-5.50); Red Cell Distribution Width 14.4 % (11.5-14.5); Segmented Neutrophils % 80.5 %; White Blood Count 11.1 K/mcL (4.3-11.1)
[2018-12-15 05:35] LABS: Alanine Aminotransferase 77 Units/L (7-52); Albumin 3.1 g/dL (3.5-5.7); Albumin/Globulin Ratio 0.7 (1.1-2.2); Alkaline Phosphatase 128 Units/L (34-104); Aspartate Amino Transferase 50 Units/L (13-39); BUN/Creatinine Ratio 33 (6-26); Bilirubin,Total 1.2 mg/dL (0.3-1.0); Blood Urea Nitrogen 16 mg/dL (6-20); Calcium 8.8 mg/dL (8.6-10.3); Carbon Dioxide 21 mEq/L (23-29); Chloride 101 mEq/L (98-107); Globulin 4.3 g/dL (2.4-3.5); Glucose 112 mg/dL (70-105); Osmolality,Calculated 274 (280-300); Potassium 4.4 mEq/L (3.5-5.1); Sodium 131 mEq/L (136-145); Total Protein 7.4 g/dL (6.4-8.9); eGFR For African Americans > 60 (> 60); eGFR For Non-African Americans > 60 (> 60)
[2018-12-15] MEDS: Acetaminophen IV 1,000 MG/100 ML INFUS..BTL IVPB SCH ×2 (06:00→21:22)
[2018-12-15] MEDS: *HR* Heparin 5,000 UNIT/ML VIAL SQ SCH ×2 (06:56→15:57)
[2018-12-15] MEDS: 0.9 % Sodium Chloride 1,000 ML IVC SCH ×3 (07:33→15:56)
--- NOTE | 2018-12-15 09:02 | Orthopedics Progress Note ---
Date of Encounter: 12/15/18 Time of Encounter: 09:01 Subjective Interval history: S: This patient is a 48-year-old male admitted with a right forearm abscess. Dr. Mckinley did the initial consult but is unable to drain the abscess today. He asked me to evaluate the patient to perform definitive management. The patient denies injecting into the right forearm and thinks it may have been from a s pider bite. He complains of significant pain to the right forearm, worse with use and movement. No relieving factors. Mild numbness and tingling to the fingertips. Function is affected by the abscess. O: Afebrile on the vital signs are stable Significant swelling to the right forearm with erythema volarly and radially. Significant tenderness to palpation over the erythema. No significant tenderness or swelling dorsally. Mild swelling of the hand and wrist. He can weakly flex and extend the digits The fingertips are all sensate and well-perfused. CT scan is reviewed and shows a massive abscess which appears to have an intramuscular component and the volar/radial forearm A: Right forearm abscess as described above P: My plan is to perform incision, drainage, irrigation, debridement of the right forearm. Given the significant large nature and depth of the abscess, I anticipate leaving the wound open with placement of a wound VAC and second look I&D with wound closure likely on or Thursday. The risks discussed included but were not limited to stiffness, bleeding, infection, blood clots, damage to neurovascular structures, tendons, ligaments, and bone. Also discussed was the risk of continued symptoms and possible need for further procedures. I did discuss the anesthesia risks including stroke, heart attack, and . I did discuss the reasonable, foreseeable postoperative course with the patient. The patient did wish to proceed and consent was obtained. I have reviewed each of the pertinent components of this chart and any other pertinent medical component(s) including but not limited to pertinent application of the chief complaint, history of present illness, current medication, medical history, allergies, family history, medical history, surgical history, social history, review of systems, vital signs, and any other portion of the pertinent patient medical record directly or indirectly involved with this patient care that is pertinent based on my medical decision process. TRAVIS Pelaez Objective Vital signs: Vital Signs Temp Pulse Resp BP Pulse Ox 12/15/18 07:36 97.9 F 85 18 159/89 96 12/15/18 03:50 98.0 F 84 18 150/87 99 12/15/18 03:48 98.0 F 87 150/87 12/14/18 23:22 98.0 F 92 16 151/86 98 12/14/18 19:48 99.1 F 110 16 157/91 99 12/14/18 16:54 98.6 F 95 16 117/75 12/14/18 13:20 101 19 131/74 99 12/14/18 09:34 98.3 F 103 19 132/83 98 Intake and Output 12/14/18 12/15/18 12/15/18 23:59 07:59 15:59 Intake Total 1150 / 2400 1250 / 1300 50 / 1300 Output Total 550 / 550 Balance 1150 / 2400 1250 / 750 -500 / 750 Intake: IV Fluids 1150 / 2400 1250 / 1300 50 / 1300 0.9 % Sodium Chloride 1,000 ML 1000 / 1000 1000 / 1000 @ 100 mls/hr IVC .Q10H JIMMY Rx#: [id number] Ofirmev 1,000 mg/100 ml 1,000 100 / 100 200 / 200 mg In 100 ml @ 400 mls/hr IVPB Q6HR JIMMY Rx#:[id number] Cleocin Premix 600 MG/50 ML 600 50 / 50 50 / 100 50 / 100 mg In 50 ml @ 50 mls/hr IVPB Q8HR JIMMY Rx#:[id number] Output: Urine 550 / 550 Other: Weight 83.3 kg 83.8 kg Blood Glucose* 120 Patient Weight 12/15/18 23:59 Weight 83.8 kg - Labs CBC & BMP: 12/15/18 04:54 12/15/18 04:54 Labs: Abnormal lab results WBC 14.6 K/mcL (4.3-11.1) H 12/14/18 10:20 MPV 9.3 fL (9.4-12.4) L 12/15/18 04:54 Neutrophils # 12.4 K/mcL (1.6-8.9) H 12/14/18 10:20 PT 14.5 Seconds (9.4-12.1) H 12/14/18 10:20 Sodium 131 mEq/L (136-145) L 12/15/18 04:54 Chloride 95 mEq/L (98-107) L 12/14/18 10:20 Carbon Dioxide 21 mEq/L (23-29) L 12/15/18 04:54 Creatinine 0.48 mg/dL (0.70-1.30) L 12/15/18 04:54 BUN/Creatinine Ratio 33 (6-26) H 12/15/18 04:54 Glucose 112 mg/dL (70-105) H 12/15/18 04:54 POC Glucose 120 mg/dL (70-99) H 12/14/18 19:49 Calculated Osmolality 274 (280-300) L 12/15/18 04:54 Total Bilirubin 1.2 mg/dL (0.3-1.0) H 12/15/18 04:54 Direct Bilirubin 0.7 mg/dL (0.0-0.2) H 12/14/18 10:20 AST 50 Units/L (13-39) H 12/15/18 04:54 ALT 77 Units/L (7-52) H 12/15/18 04:54 Alkaline Phosphatase 128 Units/L (34-104) H 12/15/18 04:54 Albumin 3.1 g/dL (3.5-5.7) L 12/15/18 04:54 Globulin 4.3 g/dL (2.4-3.5) H 12/15/18 04:54 Albumin/Globulin Ratio 0.7 (1.1-2.2) L 12/15/18 04:54 Urine Opiates Screen Positive ng/mL (Jweuuf=731) H 12/14/18 14:00 Ur Amphetamines Screen Positive ng/mL (Perxpx=7629) H 12/14/18 14:00 Hepatitis C Ab Screen Reactive (Nonreactive) H 12/14/18 10:20 Consult Discharge Plan - Plan Referrals: NONE,PCP [Primary Care Provider] -
--- NOTE | 2018-12-15 10:35 | Internal Med Progress Note ---
<Maury Danielle I - Last Filed: 12/15/18 19:36> Hospitalist Progress Note - Encounter Date of Encounter: 12/15/18 Time of Encounter: 09:50 - Subjective Interval History: Mr. Montenegro is a 48 year old male with a past medical history of hepatitis C, IV drug use with heroin, ice, also smokes marijuana and cigarettes. he is Currently is homeless presented with right arm swelling and tenderness . Today patient was seen and examined he does complain of sever right arm pain and leaking . denies fever or chills , nausea, vomiting, headache, CP, SOB, cough, abdominal pain, diarrhea, constipation, dizziness, lightheadedness, numbness, tingling. - Exam Vitals: Temp Pulse Resp BP Pulse Ox 97.9 F 85 18 159/89 96 12/15/18 07:36 12/15/18 07:36 12/15/18 07:36 12/15/18 07:36 12/15/18 07:36 Exam: General - Alert and oriented x 3, no acute distress and appears comfortable HEENT - Conjunctiva clear, no nasal or oral mucosal lesions/ulcerations , Heme/Lymph - No cervical or supraclavicular lymph node enlargement or tenderness. No pallor. Heart - S1S2 regular in rate and rhythm without murmurs, clicks or rubs. No peripheral edema. Radial pulses equal and strong Lungs - Unlabored breathing, decrease breath sound bilaterally ; no decrease in chest expansion Gastrointestinal - Soft, nontender, nondistended. Unable to palpate any hepatosplenomegaly Neurological - muscle strength 5/5 in all four extremities, sensation intact Extrimities: right arm swelling redness and tenderness. with decrease ROM due to pain but able to move it also able to move the right hand and fingers . other extrimities are normal psych : normal mood and behaviour - Assessment and Plan (1) Abscess of right arm Current Visit: Yes Status: Acute Assessment and Plan: -patient complains of sever pain in right arm . -his vitals are stable today except for hypertension , he is currently afebrile , his wbc improved to 11.1 -12/14/2018 two blood cultures are pending -CT : showed large focal fluid collection in the mid to proximal ventralradial forearm which demonstrates partial enhanced rim This is centered intramuscular but appears to extend extra muscular into the overlying subcutaneous fat. This grossly measures 11.6 x 6.7 x 3.1 cm and is concerning for abscess/phlegmon. Myonecrosis could have a similar appearance. No soft tissue gas or gas internal to the collection noted. No radiopaque foreign bodies. Superimposed diffuse subcutaneous edema to the forearm compatible with cellulitis. No acute bony abnormalities. No CT evidence of osteomyelitis. -orthopedic was consulted and they did I & D , irrigation, debridement of the right forearm intramuscular abscess with placement of wound VAC - he is on clindamycin , levofloxacin and vancomycin -pain is managed with 1 g IV Tylenol every 8 hr , oxycodone 5 mg SL Q6 PRN , tramadol 50 mg QID PRN -ID is consulted (2) Hepatitis C Current Visit: No Status: Chronic Assessment and Plan: currently asymptomatic Liver enzymes noted on admission to be AST 53, ALC of 90, alkaline phosphatase of 135 . today all down trending Hepatitis panel ordered and HCV ab was positive (3) IV drug user Current Visit: Yes Status: Chronic Assessment and Plan: Patient is a current drug user of IV heroin and ice pain is managed with 1 g IV Tylenol every 8 hr , oxycodone 5 mg SL Q6 PRN , tramadol 50 mg QID PRN DVT Prophylaxis: JIMMY - Time Spent with Patient Total time spent is greater than 50% in coordination of care (as documented) at patient's floor/unit and/or counseling patient: Internal Medicine: Result - Labs CBC & Chem 7: 12/15/18 04:54 12/15/18 04:54 Labs: Short CBC 12/14/18 12/15/18 Range/Units 10:20 04:54 WBC 14.6 H 11.1 (4.3-11.1) K/mcL Hgb 13.4 12.9 (12.9-16.9) g/dL Hct 40.0 39.5 (37.5-50.1) % Plt Count 182 153 (140-400) K/mcL Neutrophils # 12.4 H 8.9 (1.6-8.9) K/mcL BMP 12/14/18 12/15/18 10:20 04:54 Sodium 130 L 131 L Potassium 4.1 4.4 Chloride 95 L 101 Carbon Dioxide 26 21 L BUN 18 16 Creatinine 0.57 L 0.48 L Glucose 171 H 112 H Calcium 9.3 8.8 Liver Function 12/14/18 12/15/18 Range/Units 10:20 04:54 Total Bilirubin 1.6 H 1.2 H (0.3-1.0) mg/dL Direct Bilirubin 0.7 H (0.0-0.2) mg/dL AST 53 H 50 H (13-39) Units/L ALT 90 H 77 H (7-52) Units/L Alkaline Phosphatase 135 H 128 H (34-104) Units/L Albumin 3.5 3.1 L (3.5-5.7) g/dL - ABG Interpretation ABG results: PT/INR, D-dimer PT 14.5 Seconds (9.4-12.1) H 12/14/18 10:20 - Impressions Impressions Upper Extremity CT 12/14/18 09:57 IMPRESSION: Large focal fluid collection in the mid to proximal ventral-radial forearm which demonstrates partial enhancing rim. This is centered intramuscular but appears to extend extramuscular into the overlying subcutaneous fat. This grossly measures 11.6 x 6.7 x 3.1 cm and is concerning for abscess/phlegmon. Myonecrosis could have a similar appearance. No soft tissue gas or gas internal to the collection noted. No radiopaque foreign bodies. Superimposed diffuse subcutaneous edema to the forearm compatible with cellulitis. No acute bony abnormalities. No CT evidence for osteomyelitis. D/ / 12/14/2018 11:18:49 Armin Flannery MD / angie Interpreting Provider: Armin Flannery MD Consult Discharge Plan - Plan Referrals: NONE,PCP [Primary Care Provider] - <Carlos Zavala - Last Filed: 12/15/18 21:14> Hospitalist Progress Note - Encounter Date of Encounter: 12/15/18 - Exam Vitals: Temp Pulse Resp BP Pulse Ox 97.6 F 98 16 159/84 98 12/15/18 18:45 12/15/18 18:45 12/15/18 18:45 12/15/18 18:45 12/15/18 18:45 - Time Spent with Patient Total time spent is greater than 50% in coordination of care (as documented) at patient's floor/unit and/or counseling patient: Internal Medicine: Result - Labs CBC & Chem 7: 12/15/18 04:54 12/15/18 04:54 Labs: Short CBC 12/15/18 Range/Units 04:54 WBC 11.1 (4.3-11.1) K/mcL Hgb 12.9 (12.9-16.9) g/dL Hct 39.5 (37.5-50.1) % Plt Count 153 (140-400) K/mcL Neutrophils # 8.9 (1.6-8.9) K/mcL BMP 12/15/18 04:54 Sodium 131 L Potassium 4.4 Chloride 101 Carbon Dioxide 21 L BUN 16 Creatinine 0.48 L Glucose 112 H Calcium 8.8 Liver Function 12/15/18 Range/Units 04:54 Total Bilirubin 1.2 H (0.3-1.0) mg/dL AST 50 H (13-39) Units/L ALT 77 H (7-52) Units/L Alkaline Phosphatase 128 H (34-104) Units/L Albumin 3.1 L (3.5-5.7) g/dL - ABG Interpretation ABG results: PT/INR, D-dimer PT 14.5 Seconds (9.4-12.1) H 12/14/18 10:20 - Attending Attestation I saw evaluated and examined this patient and reviewed objective data including labs and my medical decision-making was reviewed with the Resident Physician. I agree with the documented findings, disposition and treatment plan as described except to any changes set forth below. We independently had [id number] contact with the patient. <Maury Danielle I - Last Filed: 12/15/18 19:36> (2) Hepatitis C Qualifiers: Viral hepatitis chronicity: chronic Hepatic coma status: without hepatic coma Qualified Code(s): B18.2 - Chronic viral hepatitis C
[2018-12-15] MEDS: *HR* LORazepam 2 MG/ML VIAL IVP PRN (10:54)
[2018-12-15] MEDS ORDERED: *HR* FentaNYL (PF) 100 MCG/2 ML VIAL ONE ×2 (11:43→12:52)
[2018-12-15] MEDS ORDERED: *HR* Midazolam HCl 2 MG/2 ML VIAL ONE (11:43)
[2018-12-15] MEDS ORDERED: Lidocaine -MPF 2% 2 ML VIAL ONE ×2 (11:44→13:45)
[2018-12-15] MEDS ORDERED: Ondansetron 4 MG/2 ML VIAL ONE (11:44)
[2018-12-15] MEDS ORDERED: Dexamethasone 4 MG/ML VIAL ONE (11:44)
[2018-12-15] MEDS ORDERED: Albuterol 2.5 MG/3 ML NEBULIZER IH ONE ×2 (11:54→14:12)
--- NOTE | 2018-12-15 11:57 | Anesthesia Evaluation PreOp ---
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), IV Drug Use Medications and Allergies No Known Home Drugs 12/14/18 [History] Allergy/AdvReac Type Severity Reaction Status Date / Time Amoxicillin Allergy Difficulty Verified 12/15/18 10:58 Breathing promethazine [From Phenergan] AdvReac Agitated Verified 12/15/18 10:58 - Meds/Allergy Pre-op Review Medications Reviewed: Yes Allergies Reviewed: Yes Beta Blockers on Current Med List: No Anesthesia Results - Labs 12/15/18 04:54 12/15/18 04:54 Anesthesia Exam Selected Entries 12/15/18 07:36 Temperature 97.9 F Pulse Rate 85 Respiratory Rate 18 Blood Pressure 159/89 O2 Sat by Pulse Oximetry 96 Weight: 84 kg NPO (# of Hours): over 8 hours - HEENT Teeth: Poor dentition (teeth in terrible condition, "meth mouth") Oral Opening: Greater than 3 - Cardiac Rhythm: Regular Murmur: None - Pulmonary Breath Sounds: bilateral Clear Respiratory Effort: Symmetrical Anesthesia Assess/Plan ASA Score: 3 Level of consciousness: Cooperative Anesthetic Plan: General Monitoring Plan: Standard Monitors Recovery Plan: PACU (Discussed GA, risks. Agreed to proceed.)
[2018-12-15] MEDS ORDERED: *HR* Midazolam HCl 2 MG/2 ML VIAL IVP PRN ×2 (11:59→14:12)
[2018-12-15] MEDS ORDERED: *HR* OxyCODONE Immed Rel 5 MG TABLET PO PRN (11:59)
[2018-12-15] MEDS ORDERED: *HR* HYDROmorphone (PF) 1 MG/ML SYRINGE IVP PRN ×2 (11:59→14:12)
[2018-12-15] MEDS ORDERED: Ondansetron 4 MG/2 ML VIAL IVP ONE ×2 (11:59→14:12)
[2018-12-15] MEDS ORDERED: *HR* Propofol 200 MG/20 ML VIAL IVP ONE ×2 (12:00→12:38)
[2018-12-15] MEDS ORDERED: *HR* Succinylcholine 200 MG/10 ML VIAL IVP ONE ×2 (12:00→13:45)
[2018-12-15] MEDS ORDERED: Bupivacaine/EPI 1:200k 0.5%PF 10 ML VIAL ONE (12:03)
[2018-12-15] MEDS ORDERED: Vancomycin 1,000 MG VIAL ONE (12:04)
[2018-12-15] MEDS ORDERED: Lidocaine HCL 4 ML Topical Solution (Laryng-O-Jet Kit Sterile Pak) TP ONE (12:16)
[2018-12-15] MEDS ORDERED: Ethanol\\Acetic Acid\\Na Ace\\Ben 1,000 ML IRRIG.SOLN IR ONE (12:21)
[2018-12-15] MEDS ORDERED: *HR* HYDROMORPHONE 2 MG/ML VIAL ONE (13:03)
[2018-12-15] MEDS ORDERED: Acetaminophen IV 1,000 MG/100 ML INFUS..BTL IVPB SCH (14:00)
[2018-12-15] MEDS: *HR* Metoprolol 5 MG/5 ML VIAL IVP PRN ×5 (14:00→14:23)
--- NOTE | 2018-12-15 14:02 | Orthopedic Operative Note ---
Date of procedure: 12/15/18 Procedure: OPERATIVE REPORT SURGEON: Abhijit Contreras MD PREOPERATIVE DIAGNOSIS: Right intramuscular forearm abscess POSTOPERATIVE DIAGNOSIS: Right intramuscular forearm abscess PROCEDURE: Incision, drainage, irrigation, debridement of the right forearm intramuscular abscess with placement of wound VAC ANESTHESIA: General anesthesia PREOPERATIVE NOTE The surgical plan was reviewed with the patient. The risks, benefits, alternatives, and potential complications of this procedure were discussed with the patient including injury to veins, arteries, nerves, tendons, ligaments, and bone. Also discussed were the risks of infection, bleeding, pain, blood clots, the possible need for a blood transfusion, the possible need for further procedures, heart attack, stroke, and . Additional risks include the need for multiple debridements. All of this was explained in simple terms, and the patient verbalized understanding and wished to proceed. Consent was given to proceed with surgery. PROCEDURE: The patient was seen in the preoperative holding area where the identify and the consent were confirmed. The right forearm was marked. Final questions were answered. The patient was brought back to the operating room and placed supine on the operating room table. A huddle was performed with the patient and all vital surgical team members confirming patient identity, the correct procedure, and the correct operative site. Gen. anesthesia was administered. The operative extremity was prepped and draped in the usual sterile fashion. A surgical time out was performed immediately preceding the incision with all personnel in the operating room to confirm patient identity, the correct operative site and extremity, correct radiographic studies, availability of appropriate surgical equipment, and agreement on the planned procedure. The tourniquet was inflated without exsanguination. A volar Ricardo incision was made and dissection proceeded carefully through the subcutaneous tissue and the abscess cavity was entered. Several 100 mL of grossly purulent, very foul- smelling fluid was decompressed. This was suctioned and swabbed for aerobic and anaerobic cultures. Dissection proceeded into the volar forearm compartment which communicated likely with the abscess. An initial irrigation was performed to wash out the initial purulence. There is no significant necrotic material within the wound bed. The volar musculature appeared healthy. The radial artery was intact. The lateral antebrachial cutaneous nerve was identified and was intact as well. The irrisept was poured into the wound and kept in place for 60 seconds and washed away. The Bactisure was then flushed to the wound followed by 6 L of saline. The wound was packed open with a black suction sponge directly over the volar musculature and not over any deep vital structures. The seal was created and the VAC was turned onto -125 mmHg continuous without leak. The instrument, sponge, and needle counts were correct after wound closure. POST OPERATIVE PLAN: Consult placed to infectious disease. I did discuss with Dr. Spaulding and we will do IV vancomycin, levofloxacin, and oral clindamycin until cultures delineate. Anticipate second look I&D on Thursday. Was there an certified pathology assistant present: No Estimated blood loss (cc): 5
[2018-12-15] MEDS ORDERED: *HR* LORazepam 2 MG/ML VIAL IVP PRN ×2 (14:12)
[2018-12-15] MEDS ORDERED: Naloxone 0.4 MG/ML INJ IVP PRN (14:12)
--- NOTE | 2018-12-15 14:54 | Anesthesia Evaluation Post Op ---
Date of Encounter: 12/15/18 Time of Encounter: 14:50 - Vital Signs Vital Signs: Selected Entries 12/15/18 14:35 12/15/18 14:50 Temperature 99.0 F Pulse Rate 89 Respiratory Rate 20 Blood Pressure 171/98 O2 Sat by Pulse Oximetry 97 - Lungs Lungs: Clear Ascult./Percussion - Airway Airway: Non-obstructed - Cardiovascular Regular Rate - Nausea Vomiting Nausea Vomiting: Not Present - Hydration Hydration: Tolerates oral liquids - Discharge PostOp Status: Discharge Patient to home
[2018-12-15] MEDS: levoFLOXacin 750 MG/150 ML 750 MG/150 ML BAG IVPB SCH (15:56)
[2018-12-15] MEDS ORDERED: traMADol 50 MG TABLET PO PRN (19:31)
[2018-12-15 21:40] LABS: Acinetobacter baumannii by PCR Not Detected (Not Detect); Candida albicans by PCR Not Detected (Not Detect); Candida glabrata by PCR Not Detected (Not Detect); Candida krusei by PCR Not Detected (Not Detect); Candida parapsilosis by PCR Not Detected (Not Detect); Candida tropicalis by PCR Not Detected (Not Detect); Enterobacter cloacae Cmplx PCR Not Detected (Not Detect); Enterobacteriaceae by PCR Not Detected (Not Detect); Enterococcus by PCR Not Detected (Not Detect); Escherichia coli by PCR Not Detected (Not Detect); Klebsiella oxytoca by PCR Not Detected (Not Detect); Klebsiella pneumoniae by PCR Not Detected (Not Detect); Proteus by PCR Not Detected (Not Detect); Pseudomonas aeruginosa by PCR Not Detected (Not Detect); Serratia marcescens by PCR Not Detected (Not Detect); Staphylococcus aureus by PCR Not Detected (Not Detect); Staphylococcus by PCR Not Detected (Not Detect); Streptococcus agalactiae(B)PCR Not Detected (Not Detect); Streptococcus by PCR DETECTED (Not Detect); Streptococcus pneumoniae PCR Not Detected (Not Detect); Streptococcus pyogenes (A) PCR Not Detected (Not Detect); blaKPC Carbapenem-Resist Gene Not Detected (Not Detect); mecA Methicillin-Resist Gene Not Detected (Not Detect); vanA/B Vancomycin-Resist Genes Not Detected (Not Detect)
[2018-12-16 02:37] LABS: Basophils % 0.1 %; Hematocrit 36.9 % (37.5-50.1); Hemoglobin 12.1 g/dL (12.9-16.9); Immature Granulocytes % 0.9 % (0-4); Lymphocytes # 1.4 K/mcL (0.6-4.6); Lymphocytes % 13.6 %; Mean Corpuscular HGB Conc 32.8 g/dL (31.6-35.5); Mean Corpuscular Hemoglobin 30.6 pg (28.0-33.3); Mean Corpuscular Volume 93.2 fL (83.0-100.0); Mean Platelet Volume 9.4 fL (9.4-12.4); Monocytes # 0.6 K/mcL (0.0-1.3); Monocytes % 6.1 %; Neutrophils # 8.1 K/mcL (1.6-8.9); Platelet Count 201 K/mcL (140-400); Red Blood Count 3.96 M/mcL (4.19-5.50); Red Cell Distribution Width 14.3 % (11.5-14.5); Segmented Neutrophils % 79.3 %; White Blood Count 10.2 K/mcL (4.3-11.1)
[2018-12-16 02:57] LABS: Alanine Aminotransferase 62 Units/L (7-52); Albumin 2.9 g/dL (3.5-5.7); Albumin/Globulin Ratio 0.7 (1.1-2.2); Alkaline Phosphatase 105 Units/L (34-104); Aspartate Amino Transferase 33 Units/L (13-39); BUN/Creatinine Ratio 28 (6-26); Bilirubin,Total 0.7 mg/dL (0.3-1.0); Blood Urea Nitrogen 13 mg/dL (6-20); Calcium 8.5 mg/dL (8.6-10.3); Carbon Dioxide 24 mEq/L (23-29); Chloride 103 mEq/L (98-107); Globulin 4.1 g/dL (2.4-3.5); Glucose 154 mg/dL (70-105); Osmolality,Calculated 281 (280-300); Sodium 134 mEq/L (136-145); eGFR For African Americans > 60 (> 60); eGFR For Non-African Americans > 60 (> 60)
[2018-12-16] MEDS: 0.9 % Sodium Chloride 1,000 ML IVC SCH ×3 (03:31→13:35)
[2018-12-16] MEDS: *HR* Heparin 5,000 UNIT/ML VIAL SQ SCH ×2 (06:04→17:20)
[2018-12-16] MEDS: Acetaminophen IV 1,000 MG/100 ML INFUS..BTL IVPB SCH ×4 (06:15→22:37)
--- NOTE | 2018-12-16 07:19 | Internal Med Progress Note ---
<Maury Danielle I - Last Filed: 12/16/18 16:11> Hospitalist Progress Note - Encounter Date of Encounter: 12/16/18 Time of Encounter: 09:10 - Subjective Interval History: Patient was seen and examined today , he pain significantly improved as well his swelling and the redness of the arm . he is doing well . denies N/V/D/C no chest pain or SOB . no change in bowel motion or urination - Exam Vitals: Temp Pulse Resp BP Pulse Ox 97.6 F 86 16 110/66 98 12/16/18 06:40 12/16/18 06:40 12/16/18 06:40 12/16/18 06:40 12/16/18 06:40 Exam: General - Alert and oriented x 3, no acute distress and appears comfortable HEENT - Conjunctiva clear, no nasal or oral mucosal lesions/ulcerations , Heme/Lymph - No cervical or supraclavicular lymph node enlargement or tenderness. No pallor. Heart - S1S2 regular in rate and rhythm without murmurs, clicks or rubs. No peripheral edema. Radial pulses equal and strong Lungs - Unlabored breathing, decrease breath sound bilaterally ; no decrease in chest expansion Gastrointestinal - Soft, nontender, nondistended. Unable to palpate any hepatosplenomegaly Neurological - muscle strength 5/5 in all four extremities, sensation intact Extrimities: significant improvement in right arm swelling redness and tenderness.The wound VAC is sectioning well with about 100 mL of bloody fluid since the OR Neurovascularly intact distally psych : normal mood and behaviour - Assessment and Plan (1) Abscess of right arm Current Visit: Yes Status: Acute Assessment and Plan: -patient presented with sever pain in right arm , underwent I & D , irrigation, debridement of the right forearm intramuscular abscess with placement of wound VAC -The wound VAC is sectioning well with about 100 mL of bloody fluid since the OR Neurovascularly intact distally -Afebrile on the vital signs are stable -Significant improvement of the forearm redness -12/14/2018 two blood cultures are pending , One of the blood cultures has come back positive for strep species Wound cultures are still pending though Gram stain was positive for a polymicrobial infectio - tomorrow will repeat blood culture - he is on clindamycin , levofloxacin and vancomycin continue -pain is managed with 1 g IV Tylenol every 8 hr , oxycodone 10 mg SL Q4 PRN , tramadol 50 mg QID PRN -ID is consulted - Plan on second look I&D tomorrow in the operating room with back removal and possible partial wound closure depending on intraoperative findings , NPO midnight (2) Gram-positive cocci bacteremia Current Visit: Yes Status: Acute Assessment and Plan: 1/2 sets positive for gram-positive cocci 12/14/2018 Likely source right arm No endocarditis stigmata on physical exam will repeat blood culture tomorrow Currently on vancomycin, Levaquin and clindamycin (3) Hepatitis C Current Visit: No Status: Chronic Assessment and Plan: urrently asymptomatic Liver enzymes noted on admission to be AST 53, ALC of 90, alkaline phosphatase of 135 . today all down trending Hepatitis panel ordered and HCV ab was positive (4) IV drug user Current Visit: Yes Status: Chronic Assessment and Plan: Patient is a current drug user of IV heroin and ice pain is managed with 1 g IV Tylenol every 8 hr , oxycodone 5 mg SL Q6 PRN , tramadol 50 mg QID PRN DVT Prophylaxis: JIMMY - Time Spent with Patient Total time spent is greater than 50% in coordination of care (as documented) at patient's floor/unit and/or counseling patient: Internal Medicine: Result - Labs CBC & Chem 7: 12/16/18 02:20 12/16/18 02:20 Labs: Short CBC 12/16/18 Range/Units 02:20 WBC 10.2 (4.3-11.1) K/mcL Hgb 12.1 L (12.9-16.9) g/dL Hct 36.9 L (37.5-50.1) % Plt Count 201 (140-400) K/mcL Neutrophils # 8.1 (1.6-8.9) K/mcL BMP 12/14/18 12/16/18 10:20 02:20 Sodium 130 L 134 L Potassium 4.1 4.0 Chloride 95 L 103 Carbon Dioxide 26 24 BUN 18 13 Creatinine 0.57 L 0.46 L Glucose 171 H 154 H Calcium 9.3 8.5 L Liver Function 12/14/18 12/16/18 Range/Units 10:20 02:20 Total Bilirubin 1.6 H 0.7 (0.3-1.0) mg/dL Direct Bilirubin 0.7 H (0.0-0.2) mg/dL AST 53 H 33 (13-39) Units/L ALT 90 H 62 H (7-52) Units/L Alkaline Phosphatase 135 H 105 H (34-104) Units/L Albumin 3.5 2.9 L (3.5-5.7) g/dL - ABG Interpretation ABG results: PT/INR, D-dimer PT 14.5 Seconds (9.4-12.1) H 12/14/18 10:20 Consult Discharge Plan - Plan Referrals: NONE,PCP [Primary Care Provider] - <Carlos Zavala - Last Filed: 12/16/18 18:05> Hospitalist Progress Note - Encounter Date of Encounter: 12/16/18 - Exam Vitals: Temp Pulse Resp BP Pulse Ox 97.8 F 82 17 124/70 99 12/16/18 17:49 12/16/18 17:49 12/16/18 17:49 12/16/18 17:49 12/16/18 17:49 - Time Spent with Patient Total time spent is greater than 50% in coordination of care (as documented) at patient's floor/unit and/or counseling patient: Internal Medicine: Result - Labs CBC & Chem 7: 12/16/18 02:20 12/16/18 02:20 Labs: Short CBC 12/16/18 Range/Units 02:20 WBC 10.2 (4.3-11.1) K/mcL Hgb 12.1 L (12.9-16.9) g/dL Hct 36.9 L (37.5-50.1) % Plt Count 201 (140-400) K/mcL Neutrophils # 8.1 (1.6-8.9) K/mcL BMP 12/14/18 12/16/18 10:20 02:20 Sodium 130 L 134 L Potassium 4.1 4.0 Chloride 95 L 103 Carbon Dioxide 26 24 BUN 18 13 Creatinine 0.57 L 0.46 L Glucose 171 H 154 H Calcium 9.3 8.5 L Liver Function 12/14/18 12/16/18 Range/Units 10:20 02:20 Total Bilirubin 1.6 H 0.7 (0.3-1.0) mg/dL Direct Bilirubin 0.7 H (0.0-0.2) mg/dL AST 53 H 33 (13-39) Units/L ALT 90 H 62 H (7-52) Units/L Alkaline Phosphatase 135 H 105 H (34-104) Units/L Albumin 3.5 2.9 L (3.5-5.7) g/dL - ABG Interpretation ABG results: PT/INR, D-dimer PT 14.5 Seconds (9.4-12.1) H 12/14/18 10:20 - Attending Attestation I saw evaluated and examined this patient and reviewed objective data including labs and my medical decision-making was reviewed with the Resident Physician. I agree with the documented findings, disposition and treatment plan as described except to any changes set forth below. We independently had [id number] contact with the patient. <Maury Danielle I - Last Filed: 12/16/18 16:11> (3) Hepatitis C Qualifiers: Viral hepatitis chronicity: chronic Hepatic coma status: without hepatic coma Qualified Code(s): B18.2 - Chronic viral hepatitis C
--- NOTE | 2018-12-16 07:42 | Orthopedics Progress Note ---
Date of Encounter: 12/16/18 Time of Encounter: 07:40 Subjective Interval history: S: Pain significantly improved to the right forearm O: Afebrile on the vital signs are stable Significant improvement of the forearm redness The wound VAC is sectioning well with about 100 mL of bloody fluid since the OR Neurovascularly intact distally One of the blood cultures has come back positive for strep species Wound cultures are still pending though Gram stain was positive for a polymicrobial infection A: Post I&D of arch intramuscular right forearm abscess P: At this point patient is doing much better clinically Continue antibiotics as currently ordered; infectious disease specialists consulted Plan on second look I&D tomorrow in the operating room with back removal and possible partial wound closure depending on intraoperative findings Objective Vital signs: Vital Signs Temp Pulse Resp BP Pulse Ox 12/16/18 06:40 97.6 F 86 16 110/66 98 12/16/18 03:41 97.4 F L 86 15 110/66 98 12/15/18 22:58 97.6 F 95 16 126/70 97 12/15/18 18:45 97.6 F 98 16 159/84 98 12/15/18 16:00 92 20 157/88 96 12/15/18 15:46 92 20 156/90 95 12/15/18 15:31 90 20 161/91 95 12/15/18 15:17 98.0 F 93 20 161/94 96 12/15/18 14:50 89 20 171/98 97 12/15/18 14:45 88 20 171/100 97 12/15/18 14:35 99.0 F 84 20 176/106 97 12/15/18 14:25 83 20 179/112 97 12/15/18 14:15 83 20 177/108 97 12/15/18 14:05 99.0 F 88 20 173/111 97 12/15/18 13:55 98 20 180/101 96 12/15/18 13:45 95 20 168/109 95 12/15/18 13:35 99.1 F 97 20 172/96 100 Intake and Output 12/15/18 12/15/18 12/16/18 15:59 23:59 07:59 Intake Total 1400 / 3040 390 / 3040 550 / 550 Output Total 885 / 1635 750 / 1635 900 / 900 Balance 515 / 1405 -360 / 1405 -350 / -350 Intake: IV Fluids 1400 / 2800 150 / 2800 550 / 550 0.9 % Sodium Chloride 1,000 ML 1000 / 2000 0 / 0 @ 100 mls/hr IVC .Q10H [facility] Rx#: [id number] Ofirmev 1,000 mg/100 ml 1,000 100 / 300 300 / 300 mg In 100 ml @ 400 mls/hr IVPB Q8H JIMMY Rx#:[id number] Cleocin Premix 600 MG/50 ML 600 50 / 100 mg In 50 ml @ 50 mls/hr IVPB Q8HR [facility] Rx#:[id number] Vancocin 1,000 MG In 0.9 % 250 / 250 Sodium Chloride 250 ML @ 167 mls/hr IVPB ONCE ONE Rx#: [id number] Vancocin 1,250 MG In 0.9 % 250 / 250 Sodium Chloride 250 ML @ 166.67 mls/hr IVPB Q12H JIMMY Rx#: [id number] Levaquin Premix 750mg/150 mL 150 / 150 750 mg In 150 ml @ 100 mls/hr IVPB DAILY [facility] Rx#:[id number] Oral 240 / 240 Output: Urine 875 / 1625 750 / 1625 800 / 800 Estimated Blood Loss 10 / 10 Wound Drainage 100 / 100 Right Arm 100 / 100 Other: Meal Dinner Percent of Meal Consumed 100% Weight 85 kg Blood Glucose* 120 Patient Weight 12/16/18 23:59 Weight 85 kg - Labs CBC & BMP: 12/16/18 02:20 12/16/18 02:20 Labs: Abnormal lab results WBC 14.6 K/mcL (4.3-11.1) H 12/14/18 10:20 RBC 3.96 M/mcL (4.19-5.50) L 12/16/18 02:20 Hgb 12.1 g/dL (12.9-16.9) L 12/16/18 02:20 Hct 36.9 % (37.5-50.1) L 12/16/18 02:20 MPV 9.3 fL (9.4-12.4) L 12/15/18 04:54 Neutrophils # 12.4 K/mcL (1.6-8.9) H 12/14/18 10:20 ESR 77 mm/hr (0-10) H 12/15/18 13:10 PT 14.5 Seconds (9.4-12.1) H 12/14/18 10:20 Sodium 134 mEq/L (136-145) L 12/16/18 02:20 Chloride 95 mEq/L (98-107) L 12/14/18 10:20 Carbon Dioxide 21 mEq/L (23-29) L 12/15/18 04:54 Creatinine 0.46 mg/dL (0.70-1.30) L 12/16/18 02:20 BUN/Creatinine Ratio 28 (6-26) H 12/16/18 02:20 Glucose 154 mg/dL (70-105) H 12/16/18 02:20 POC Glucose 120 mg/dL (70-99) H 12/14/18 19:49 Calculated Osmolality 274 (280-300) L 12/15/18 04:54 Calcium 8.5 mg/dL (8.6-10.3) L 12/16/18 02:20 Total Bilirubin 1.2 mg/dL (0.3-1.0) H 12/15/18 04:54 Direct Bilirubin 0.7 mg/dL (0.0-0.2) H 12/14/18 10:20 AST 50 Units/L (13-39) H 12/15/18 04:54 ALT 62 Units/L (7-52) H 12/16/18 02:20 Alkaline Phosphatase 105 Units/L (34-104) H 12/16/18 02:20 C-Reactive Protein 46 mg/L (Less than 10) H 12/15/18 13:10 Albumin 2.9 g/dL (3.5-5.7) L 12/16/18 02:20 Globulin 4.1 g/dL (2.4-3.5) H 12/16/18 02:20 Albumin/Globulin Ratio 0.7 (1.1-2.2) L 12/16/18 02:20 Urine Opiates Screen Positive ng/mL ([id number]) H 12/14/18 14:00 Ur Amphetamines Screen Positive ng/mL ([id number]) H 12/14/18 14:00 Hepatitis C Ab Screen Reactive (Nonreactive) H 12/14/18 10:20 Streptococcus sp PCR DETECTED (Not Detect) A 12/14/18 11:07 Consult Discharge Plan - Plan Referrals: NONE,PCP [Primary Care Provider] -
[2018-12-16] MEDS: levoFLOXacin 750 MG/150 ML 750 MG/150 ML BAG IVPB SCH (09:29)
[2018-12-16] MEDS: Nicotine 14 MG PATCH.TD24 TD SCH (09:29)
--- NOTE | 2018-12-16 11:46 | Infectious Disease Consult ---
Infectious Disease-Consult - Encounter Date/Time Date of Encounter: 12/16/18 Time of Encounter: 11:37 - Data of Consult Patient: new to practice Reason for consult: Intramuscular forearm abscess Consult date: 12/16/18 Requesting Physician: Carlos Zavala MD Primary Care Provider: PCP NONE - HPI HPI: Patient is a 13-year-old gentleman who presented to [place] on 12/14/2018 with right arm pain. We are consulted on 12/16/2008 for intramuscular forearm abscess. Patient is 48-year-old gentleman with medical history significant for hepatitis C, PTSD and schizophrenia who is also not IV drug user including heroin, eyes and tobacco user and smokes marijuana who is homeless presented to [place] emergency department with right arm pain and swelling that started 4 days prior to admission. Patient's that he had a bug bite. Patient had worsening swelling and pain. Patient felt febrile and had chills and rigors. Patient presented to the emergency department for evaluation Since admission, patient has been afebrile, tachycardic without tachypnea. Presenting labs revealed a WBC of 14.6 with 85% neutrophils. Chemistry revealed a sodium of 130, BUN 18, creatinine 0.57. LFTs mildly elevated and total bilirubin 1.6. No lactic acidosis. Urine toxicology screen was positive for opiates and amphetamines. Blood cultures obtained on 12/14/2018 were +1/2 sets for gram-positive cocci Streptococcus species identified on PCR. CT right upper extremity revealed large focal fluid collection in the mid to proximal ventral radial forearm which demonstrates partial enhancing rim. This is centered intr amuscular appears to extend extra muscular into the overlying subcutaneous fat. Grossly measures 11.66.73.1 cm. 12/15/2014 patient was taken to surgery by Dr. Douglas where he underwent incision, drainage, irrigation, debridement of the right arm forearm musculature abscess and placement of a wound VAC. Gram stain intraoperatively was positive for gram-positive cocci many gram-negative rods. And gram-positive rods.. I did speak with Dr. Douglas told me that it was a very foul-smelling purulent abscess. Patient was started on vancomycin, clindamycin and levofloxacin. Asked to evaluate the patient's make further recommendations. Currently patient sitting at bedside. Agitated. Using profanities. But when I walked in he was calm appropriate pleasant. Patient review of system is ne gative for headache. No chest pain or shortness of breath no nausea no vomiting no diarrhea no urinary symptoms. He does have some chronic back pain but is unchanged from baseline. He had this back pain since his last surgery. Patient tells me he has no hardware in his body. - ROS Review of Systems: 10 point review of systems done. Pertinent positives and negatives mentioned in history of present illness. - Results CBC & Chem 7: 12/16/18 02:20 12/16/18 02:20 - Exam Vitals: Temp Pulse Resp BP Pulse Ox 97.4 F L 86 16 114/71 98 12/16/18 11:29 12/16/18 11:29 12/16/18 11:29 12/16/18 11:29 12/16/18 11:29 Exam: GENERAL: Laying in bed, appears comfortable. HEAD: Normocephalic atraumatic EYES: PERRLA, EOMI, no conjunctival hemorrhage, sclera anicteric. No endocarditis stigmata. ENT: Mucous membranes moist, no oral thrush. Poor dentition. NECK: Supple. No meningeal signs. No masses LUNGS: Chest expanding symmetrically. Lungs sounds audible both lung norman. No wheezing, no rhonchi CV: RRR, S1S2, I did not appreciate any murmur. ABDOMEN: Soft, nontender, nondistended. Bowel sounds audible BACK: No CVA tenderness. Normal inspection. No tenderness over the spine EXTREMITY: Adequate perfusion. No joint effusion. Right forearm surgically wrapped with wound VAC intact. SKIN: Normal color. No rash. No endocarditis stigmata. NEURO: Awake alert oriented 3. No obvious focal deficit PSYCH: Calm and appropriate. No agitation. No Known Home Drugs 12/14/18 [History] Allergy/AdvReac Type Severity Reaction Status Date / Time Amoxicillin Allergy Difficulty Verified 12/15/18 10:58 Breathing promethazine [From Phenergan] AdvReac Agitated Verified 12/15/18 10:58 - Assessment and Plan (1) Sepsis Current Visit: Yes Status: Acute had 2 SIRS criteria on admission (tachycardia and leukocytosis) source is right arm abscess Qualifiers: Sepsis type: sepsis due to unspecified organism Sepsis acute organ dysfunction status: unspecified Qualified Code(s): A41.9 - Sepsis, unspecified organism SNOMED Code(s): 78011062 (2) Gram-positive cocci bacteremia Current Visit: Yes Status: Acute 1/2 sets positive for gram-positive cocci 12/14/2018 Likely source right arm No endocarditis stigmata on physical exam SNOMED Code(s): 196547723982, 419387582122 (3) Abscess of right arm Current Visit: Yes Status: Acute CT right upper extremity 12/14/2018: Large local fluid collection in the mid to proximal ventral radial forearm. Centered intramuscular. Measures 11.66.73.1 cm 12/15/2018 status post incision, drainage, irrigation, debridement of the right forearm intramuscular abscess with placement of wound VAC by Dr. Lila morales. Intra-Op cultures pending Gram stain showing gram-positive cocci, gram-negative rods and gram-positive rods Currently on vancomycin, Levaquin and clindamycin SNOMED Code(s): 43253522790187245 (4) Hepatitis C Current Visit: No Status: Chronic Diagnosed with thousand 17 Has mild hyperbilirubinemia Qualifiers: Viral hepatitis chronicity: chronic Hepatic coma status: without hepatic coma Qualified Code(s): B18.2 - Chronic viral hepatitis C SNOMED Code(s): 43801481 (5) IV drug user Current Visit: Yes Status: Chronic Continues to inject heroin and ICE SNOMED Code(s): 058602144 (6) Tobacco use Current Visit: Yes Status: Acute SNOMED Code(s): 451797384 - Recommendations Recommendations: Check hepatitis B and HIV profile Repeat blood cultures 2 Await cultures to finalize Continue vancomycin with goal vancomycin trough of 15 Continue levofloxacin DC clindamycin Start metronidazole Duration of treatment probably at least 2 weeks worth of IV antibiotics followed by oral Monitor labs for drug toxicity Past Med Surg Social Fam HX - Past Medical History Medical history: hepatitis, other Additional medical history: chronic back pain, hepatitis C Psychiatric history: anxiety, panic disorder, PTSD - Past Surgical History Surgical History: orthopedic, other Additional surgical history: Back surgery - Social History Smoking Status: Current every day smoker Smokeless Tobacco Status: No Alcohol use: none Drug use: opiates, marijuana, methamphetamine (Active drug addict, 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
[2018-12-16] MEDS: *HR* OxyCODONE Immed Rel 5 MG TABLET PO PRN (17:15)
[2018-12-16] MEDS: MetroNIDAZOLE 500 MG/100 ML 500 MG/100 ML BAG IVPB SCH ×2 (17:21→23:36)
[2018-12-16] MEDS ORDERED: *HR* LORazepam 2 MG/ML VIAL IVP ONE (19:57)
[2018-12-16] MEDS ORDERED: *HR* Promethazine 25 MG/ML VIAL IVP ONE (22:55)
[2018-12-16] MEDS ORDERED: Haloperidol Lactate 5 MG/ML VIAL IVP ONE (22:55)
[2018-12-17] MEDS: 0.9 % Sodium Chloride 1,000 ML IVC SCH ×2 (02:15→20:14)
[2018-12-17] MEDS: *HR* OxyCODONE Immed Rel 5 MG TABLET PO PRN ×3 (05:19→23:38)
[2018-12-17] MEDS: Acetaminophen IV 1,000 MG/100 ML INFUS..BTL IVPB SCH ×3 (05:21→22:59)
[2018-12-17] MEDS: *HR* Heparin 5,000 UNIT/ML VIAL SQ SCH ×2 (05:21→18:03)
[2018-12-17 05:33] LABS: Basophils % 0.8 %; Eosinophils % 0.8 %; Hematocrit 32.5 % (37.5-50.1); Hemoglobin 10.8 g/dL (12.9-16.9); Lymphocytes # 1.4 K/mcL (0.6-4.6); Lymphocytes % 35.7 %; Mean Corpuscular HGB Conc 33.2 g/dL (31.6-35.5); Mean Corpuscular Hemoglobin 30.8 pg (28.0-33.3); Mean Corpuscular Volume 92.6 fL (83.0-100.0); Mean Platelet Volume 9.5 fL (9.4-12.4); Monocytes # 0.2 K/mcL (0.0-1.3); Neutrophils # 2.2 K/mcL (1.6-8.9); Platelet Count 199 K/mcL (140-400); Red Blood Count 3.51 M/mcL (4.19-5.50); Red Cell Distribution Width 14.4 % (11.5-14.5); Segmented Neutrophils % 55.7 %
[2018-12-17 05:50] LABS: Alanine Aminotransferase 55 Units/L (7-52); Albumin 2.6 g/dL (3.5-5.7); Albumin/Globulin Ratio 0.7 (1.1-2.2); Alkaline Phosphatase 83 Units/L (34-104); Aspartate Amino Transferase 40 Units/L (13-39); BUN/Creatinine Ratio 23 (6-26); Bilirubin,Total 0.4 mg/dL (0.3-1.0); Blood Urea Nitrogen 13 mg/dL (6-20); Calcium 8.5 mg/dL (8.6-10.3); Carbon Dioxide 24 mEq/L (23-29); Chloride 108 mEq/L (98-107); Globulin 3.6 g/dL (2.4-3.5); Glucose 114 mg/dL (70-105); Osmolality,Calculated 285 (280-300); Potassium 3.9 mEq/L (3.5-5.1); Sodium 137 mEq/L (136-145); Total Protein 6.2 g/dL (6.4-8.9); eGFR For African Americans > 60 (> 60); eGFR For Non-African Americans > 60 (> 60)
[2018-12-17 05:58] LABS: Platelet Estimate Normal (Normal); Reactive Lymphocytes Present (Not Present)
[2018-12-17] MEDS: Nicotine 14 MG PATCH.TD24 TD SCH (08:22)
[2018-12-17] MEDS: MetroNIDAZOLE 500 MG/100 ML 500 MG/100 ML BAG IVPB SCH ×2 (08:23→18:30)
--- NOTE | 2018-12-17 08:56 | Internal Med Progress Note ---
<Maury Danielle I - Last Filed: 12/17/18 13:50> Hospitalist Progress Note - Encounter Date of Encounter: 12/17/18 Time of Encounter: 08:30 - Subjective Interval History: Patient was seen and examined today , he complains of sever pain of his right arm . he is doing well otherwise , complain he is hungry . denies N/V/D/C no chest pain or SOB . no change in bowel motion or urination , waiting for another INCISION AND DRAINGE today , we are watching his vitals and labs carefully . - Exam Vitals: Temp Pulse Resp BP Pulse Ox 97.7 F 78 16 158/93 98 12/17/18 06:45 12/17/18 06:45 12/17/18 06:45 12/17/18 06:45 12/17/18 06:45 Exam: General - Alert and oriented x 3, no acute distress and appears comfortable HEENT - Conjunctiva clear, no nasal or oral mucosal lesions/ulcerations , Heme/Lymph - No cervical or supraclavicular lymph node enlargement or tenderness. No pallor. Heart - S1S2 regular in rate and rhythm without murmurs, clicks or rubs. No peripheral edema. Radial pulses equal and strong Lungs - Unlabored breathing, decrease breath sound bilaterally ; no decrease in chest expansion Gastrointestinal - Soft, nontender, nondistended. Unable to palpate any hepatosplenomegaly Neurological - muscle strength 5/5 in all four extremities, sensation intact Extrimities: significant improvement in right arm swelling redness and tenderness.The wound VAC is sectioning well Neurovascularly intact distally psych : normal mood and behaviour - Assessment and Plan (1) Abscess of right arm Current Visit: Yes Status: Acute Assessment and Plan: -patient presented with sever pain in right arm ,2 days ago underwent I & D , irrigation, debridement of the right forearm intramuscular abscess with placement of wound VAC -supposed to have another I& D today -Afebrile , vital signs are stable , although his wbc was for today . watching carefully for sepsis development which he didnt met criteria yet -12/14/2018 two blood cultures are pending , One of the blood cultures has come back positive for strep species, we repeated blood cultures today Wound cultures are still pending - he was on clindamycin changed to metronidazole per ID recommendation , continue levofloxacin and vancomycin continue for at least 14 days IV per ID recommendation -pain is managed with 1 g IV Tylenol every 8 hr , oxycodone 10 mg SL Q4 PRN , tramadol 50 mg QID PRN , 50 microgram of phentanyl IV Q2 for breakthrough pain PRN (2) Gram-positive cocci bacteremia Current Visit: Yes Status: Acute Assessment and Plan: 1/2 sets positive for gram-positive cocci 12/14/2018 Likely source right arm , could be contamination too No endocarditis stigmata on physical exam repeated blood culture today on vanc , levofloxacin and metronidazole (3) Hepatitis C Current Visit: No Status: Chronic Assessment and Plan: urrently asymptomatic Liver enzymes noted on admission to be AST 53, ALC of 90, alkaline phosphatase of 135 . today all down trending Hepatitis panel ordered and HCV ab was positive (4) IV drug user Current Visit: Yes Status: Chronic Assessment and Plan: Patient is a current drug user of IV heroin and ice , his last one was 2 days before admission p - Time Spent with Patient Total time spent is greater than 50% in coordination of care (as documented) at patient's floor/unit and/or counseling patient: Internal Medicine: Result - Labs CBC & Chem 7: 12/17/18 05:03 12/17/18 05:03 Labs: Short CBC 12/17/18 Range/Units 05:03 WBC 4.0 L D (4.3-11.1) K/mcL Hgb 10.8 L (12.9-16.9) g/dL Hct 32.5 L (37.5-50.1) % Plt Count 199 (140-400) K/mcL Neutrophils # 2.2 (1.6-8.9) K/mcL BMP 12/17/18 05:03 Sodium 137 Potassium 3.9 Chloride 108 H Carbon Dioxide 24 BUN 13 Creatinine 0.56 L Glucose 114 H Calcium 8.5 L Liver Function 12/17/18 Range/Units 05:03 Total Bilirubin 0.4 (0.3-1.0) mg/dL AST 40 H (13-39) Units/L ALT 55 H (7-52) Units/L Alkaline Phosphatase 83 (34-104) Units/L Albumin 2.6 L (3.5-5.7) g/dL - ABG Interpretation ABG results: PT/INR, D-dimer PT 14.5 Seconds (9.4-12.1) H 12/14/18 10:20 Consult Discharge Plan - Plan Referrals: NONE,PCP [Primary Care Provider] - <Carlos Zavala - Last Filed: 12/17/18 16:29> Hospitalist Progress Note - Encounter Date of Encounter: 12/17/18 - Exam Vitals: Temp Pulse Resp BP Pulse Ox 97.4 F L 76 15 173/96 97 12/17/18 11:08 12/17/18 11:08 12/17/18 11:08 12/17/18 11:08 12/17/18 11:08 - Time Spent with Patient Total time spent is greater than 50% in coordination of care (as documented) at patient's floor/unit and/or counseling patient: Internal Medicine: Result - Labs CBC & Chem 7: 12/17/18 05:03 12/17/18 05:03 Labs: Short CBC 12/17/18 Range/Units 05:03 WBC 4.0 L D (4.3-11.1) K/mcL Hgb 10.8 L (12.9-16.9) g/dL Hct 32.5 L (37.5-50.1) % Plt Count 199 (140-400) K/mcL Neutrophils # 2.2 (1.6-8.9) K/mcL BMP 12/17/18 05:03 Sodium 137 Potassium 3.9 Chloride 108 H Carbon Dioxide 24 BUN 13 Creatinine 0.56 L Glucose 114 H Calcium 8.5 L Liver Function 12/17/18 Range/Units 05:03 Total Bilirubin 0.4 (0.3-1.0) mg/dL AST 40 H (13-39) Units/L ALT 55 H (7-52) Units/L Alkaline Phosphatase 83 (34-104) Units/L Albumin 2.6 L (3.5-5.7) g/dL - ABG Interpretation ABG results: PT/INR, D-dimer PT 14.5 Seconds (9.4-12.1) H 12/14/18 10:20 - Attending Attestation I saw evaluated and examined this patient and reviewed objective data including labs and my medical decision-making was reviewed with the Resident Physician. I agree with the documented findings, disposition and treatment plan as described except to any changes set forth below. We independently had [id number] contact with the patient. _ <Maury Danielle I - Last Filed: 12/17/18 13:50> (3) Hepatitis C Qualifiers: Viral hepatitis chronicity: chronic Hepatic coma status: without hepatic coma Qualified Code(s): B18.2 - Chronic viral hepatitis C
[2018-12-17] MEDS ORDERED: hydrOXYzine pamoate 25 MG CAPSULE PO PRN (09:27)
[2018-12-17] MEDS ORDERED: *HR* FentaNYL (PF) 100 MCG/2 ML VIAL IVP PRN (09:31)
[2018-12-17] MEDS: levoFLOXacin 750 MG/150 ML 750 MG/150 ML BAG IVPB SCH (10:11)
[2018-12-17] MEDS ORDERED: Lidocaine -MPF 1% 5 ML AMPUL INFILT ONE (12:49)
[2018-12-17] MEDS ORDERED: *HR* Propofol 200 MG/20 ML VIAL IVP ONE ×2 (14:37→15:08)
[2018-12-17] MEDS ORDERED: Lidocaine -MPF 2% 2 ML VIAL ONE (14:44)
[2018-12-17] MEDS ORDERED: *HR* Succinylcholine 200 MG/10 ML VIAL IVP ONE (14:45)
--- NOTE | 2018-12-17 15:01 | Anesthesia Evaluation PreOp ---
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, SCHIZOPHRENIA) Other Medical History: Hepatic (HEP 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), IV Drug Use Medications and Allergies No Known Home Drugs 12/14/18 [History] Allergy/AdvReac Type Severity Reaction Status Date / Time Amoxicillin Allergy Difficulty Verified 12/15/18 10:58 Breathing promethazine [From Phenergan] AdvReac Agitated Verified 12/15/18 10:58 - Meds/Allergy Pre-op Review Medications Reviewed: Yes Allergies Reviewed: Yes Anesthesia Results - Labs 12/17/18 05:03 12/17/18 05:03 Anesthesia Exam Vital Signs/O2 Sat/Glucose, Most Recent Temp Pulse Resp BP Pulse Ox 97.4 F L 76 15 173/96 97 12/17/18 11:08 12/17/18 11:08 12/17/18 11:08 12/17/18 11:08 12/17/18 11:08 Blood Glucose* 120 Weight: 87 KG - BMI 26 NPO (# of Hours): 8 - HEENT Mallampati: II Teeth: Missing, Poor dentition - Cardiac Rhythm: Regular - Pulmonary Breath Sounds: bilateral Clear Anesthesia Assess/Plan ASA Score: 3 Anesthetic Plan: General Monitoring Plan: Standard Monitors Recovery Plan: PACU
[2018-12-17] MEDS ORDERED: *HR* FentaNYL (PF) 100 MCG/2 ML VIAL ONE (15:08)
[2018-12-17] MEDS ORDERED: *HR* Midazolam HCl 2 MG/2 ML VIAL ONE (15:08)
[2018-12-17] MEDS ORDERED: Ondansetron 4 MG/2 ML VIAL ONE (15:13)
[2018-12-17] MEDS ORDERED: Dexamethasone 4 MG/ML VIAL ONE (15:13)
[2018-12-17] MEDS ORDERED: Ethanol\\Acetic Acid\\Na Ace\\Ben 1,000 ML IRRIG.SOLN IR ONE (15:14)
[2018-12-17] MEDS ORDERED: Acetaminophen IV 1,000 MG/100 ML INFUS..BTL ONE (15:25)
--- NOTE | 2018-12-17 15:33 | Orthopedics Progress Note ---
Date of Encounter: 12/17/18 Time of Encounter: 14:45 Subjective Interval history: S: Pain significantly improved to the right forearm O: Afebrile on the vital signs are stable Near complete resolution of cellulitis The wound VAC is sectioning well; no purulence Neurovascularly intact distally Wound cultures noted A: Post I&D of arch intramuscular right forearm abscess P: At this point patient is doing much better clinically Plan on 2nd look I and D today with VAC removal Objective Vital signs: Vital Signs Temp Pulse Resp BP Pulse Ox 12/17/18 11:08 97.4 F L 76 15 173/96 97 12/17/18 06:45 97.7 F 78 16 158/93 98 12/17/18 03:00 97.4 F L 85 16 151/92 98 12/16/18 22:56 97.5 F L 81 18 134/83 98 12/16/18 19:02 97.6 F 84 17 121/76 99 12/16/18 17:49 97.8 F 82 17 124/70 99 Intake and Output 12/16/18 12/17/18 12/17/18 23:59 07:59 15:59 Intake Total 1450 / 3250 100 / 600 500 / 600 Output Total 300 / 1200 500 / 500 Balance 1150 / 2050 -400 / 100 500 / 100 Intake: IV Fluids 1450 / 3250 100 / 600 500 / 600 0.9 % Sodium Chloride 1,000 ML 1000 / 2000 @ 100 mls/hr IVC .Q10H JIMMY Rx#: [id number] Ofirmev 1,000 mg/100 ml 1,000 100 / 400 mg In 100 ml @ 400 mls/hr IVPB Q8H JIMMY Rx#:[id number] Flagyl Premix 500 MG/100 ML 500 100 / 100 100 / 200 100 / 200 mg In 100 ml @ 100 mls/hr IVPB Q8HR JIMMY Rx#:[id number] Vancocin 1,250 MG In 0.9 % 250 / 250 250 / 250 Sodium Chloride 250 ML @ 166.67 mls/hr IVPB Q12H JIMMY Rx#: [id number] Levaquin Premix 750mg/150 mL 150 / 150 750 mg In 150 ml @ 100 mls/hr IVPB DAILY JIMMY Rx#:[id number] Output: Urine 300 / 1100 500 / 500 Other: Stool Size Moderate Stool Consistency soft Stool Color Brown # Voids 1 # Bowel Movements 2 Weight 87.3 kg Patient Weight 12/17/18 23:59 Weight 87.3 kg - Labs CBC & BMP: 12/17/18 05:03 12/17/18 05:03 Labs: Abnormal lab results WBC 4.0 K/mcL (4.3-11.1) L D 12/17/18 05:03 RBC 3.51 M/mcL (4.19-5.50) L 12/17/18 05:03 Hgb 10.8 g/dL (12.9-16.9) L 12/17/18 05:03 Hct 32.5 % (37.5-50.1) L 12/17/18 05:03 MPV 9.3 fL (9.4-12.4) L 12/15/18 04:54 Neutrophils # 12.4 K/mcL (1.6-8.9) H 12/14/18 10:20 Reactive Lymphocytes Present (Not Present) A 12/17/18 05:03 ESR 52 mm/hr (0-10) H 12/17/18 05:03 PT 14.5 Seconds (9.4-12.1) H 12/14/18 10:20 Sodium 134 mEq/L (136-145) L 12/16/18 02:20 Chloride 108 mEq/L (98-107) H 12/17/18 05:03 Carbon Dioxide 21 mEq/L (23-29) L 12/15/18 04:54 Creatinine 0.56 mg/dL (0.70-1.30) L 12/17/18 05:03 BUN/Creatinine Ratio 28 (6-26) H 12/16/18 02:20 Glucose 114 mg/dL (70-105) H 12/17/18 05:03 POC Glucose 120 mg/dL (70-99) H 12/14/18 19:49 Calculated Osmolality 274 (280-300) L 12/15/18 04:54 Calcium 8.5 mg/dL (8.6-10.3) L 12/17/18 05:03 Total Bilirubin 1.2 mg/dL (0.3-1.0) H 12/15/18 04:54 Direct Bilirubin 0.7 mg/dL (0.0-0.2) H 12/14/18 10:20 AST 40 Units/L (13-39) H 12/17/18 05:03 ALT 55 Units/L (7-52) H 12/17/18 05:03 Alkaline Phosphatase 105 Units/L (34-104) H 12/16/18 02:20 C-Reactive Protein 21 mg/L (Less than 10) H 12/17/18 05:03 Serum Total Protein 6.2 g/dL (6.4-8.9) L 12/17/18 05:03 Albumin 2.6 g/dL (3.5-5.7) L 12/17/18 05:03 Globulin 3.6 g/dL (2.4-3.5) H 12/17/18 05:03 Albumin/Globulin Ratio 0.7 (1.1-2.2) L 12/17/18 05:03 Urine Opiates Screen Positive ng/mL (Inpwzo=347) H 12/14/18 14:00 Ur Amphetamines Screen Positive ng/mL (Zxwsgq=3441) H 12/14/18 14:00 Hepatitis C Ab Screen Reactive (Nonreactive) H 12/14/18 10:20 Streptococcus sp PCR DETECTED (Not Detect) A 12/14/18 11:07 Consult Discharge Plan - Plan Referrals: NONE,PCP [Primary Care Provider] -
[2018-12-17] MEDS ORDERED: *HR* OxyCODONE Immed Rel 5 MG TABLET PO PRN (15:34)
[2018-12-17] MEDS ORDERED: Ondansetron 4 MG/2 ML VIAL IVP ONE (15:34)
[2018-12-17] MEDS ORDERED: *HR* Labetalol 20 MG/4 ML SYRINGE IVP PRN (15:34)
[2018-12-17] MEDS ORDERED: Albuterol 2.5 MG/3 ML NEBULIZER IH ONE (15:34)
[2018-12-17] MEDS ORDERED: Ketorolac 30 MG/ML VIAL IVP ONE (15:34)
[2018-12-17] MEDS ORDERED: *HR* Midazolam HCl 2 MG/2 ML VIAL IVP PRN (15:34)
--- NOTE | 2018-12-17 15:38 | Infectious Disease Progress No ---
ID Progress Note Date of Encounter: 12/17/18 Time of Encounter: 15:36 - Subjective Subjective: Patient seen and examined. Tells me that he is a little sore. Otherwise he is doing okay no headache no chest pain or shortness of breath no nausea no vomiting or diarrhea no urinary symptoms. Vital signs noted Labs reviewed Cultures noted - Objective CBC & Chem 7: 12/17/18 05:03 12/17/18 05:03 - Exam Vitals: Temp Pulse Resp BP Pulse Ox 97.4 F L 76 15 173/96 97 12/17/18 11:08 12/17/18 11:08 12/17/18 11:08 12/17/18 11:08 12/17/18 11:08 Exam: GENERAL: Comfortable. Laying in bed NAD HEENT: LENNOX, EOMI LUNGS: Good air sounds bilaterally, no wheezing or rhonchi CV: RRR, S1 S2 ABDOMEN: Soft, nontender, + bowel sounds EXT: Right upper extremity forearm with erythema. Wound VAC intact. NEURO: A&OX3; no focal deficit - Assessment and Plan (1) Sepsis Current Visit: Yes Status: Acute had 2 SIRS criteria on admission (tachycardia and leukocytosis) source is right arm abscess Qualifiers: Sepsis type: sepsis due to unspecified organism Sepsis acute organ dysfunction status: unspecified Qualified Code(s): A41.9 - Sepsis, unspecified organism SNOMED Code(s): 70591661 (2) Gram-positive cocci bacteremia Current Visit: Yes Status: Acute 1/2 sets positive for gram-positive cocci 12/14/2018 Likely source right arm No endocarditis stigmata on physical exam SNOMED Code(s): 121280729918, 440723141786 (3) Abscess of right arm Current Visit: Yes Status: Acute CT right upper extremity 12/14/2018: Large local fluid collection in the mid to proximal ventral radial forearm. Centered intramuscular. Measures 11.66.73.1 cm 12/15/2018 status post incision, drainage, irrigation, debridement of the right forearm intramuscular abscess with placement of wound VAC by Dr. Contreras Intra-Op cultures pending Gram stain showing gram-positive cocci, gram-negative rods and gram-positive rods Currently on vancomycin, Levaquin and metronidazole SNOMED Code(s): 67084964517616441 (4) Hepatitis C Current Visit: No Status: Chronic Diagnosed with thousand 17 Has mild hyperbilirubinemia Qualifiers: Viral hepatitis chronicity: chronic Hepatic coma status: without hepatic coma Qualified Code(s): B18.2 - Chronic viral hepatitis C SNOMED Code(s): 48291184 (5) IV drug user Current Visit: Yes Status: Chronic Continues to inject heroin and ICE SNOMED Code(s): 535592190 (6) Tobacco use Current Visit: Yes Status: Acute SNOMED Code(s): 074269313 - Recommendations Recommendations: Patient's Intra-Op cultures from the abscess is showing Streptococcus constella tus. I would consider de-escalating to Rocephin but the Gram stain also showed gram- negative rods and gram-positive rods as well. So I think this is an MB polymicrobial. Until the cultures fully finalize I will not de-escalate. Continue vancomycin Continue levofloxacin Continue metronidazole Patient will need a PICC line placement or a midline placement depending on what the cultures are finalized as. Monitor labs and for drug toxicity Consult Discharge Plan - Plan Referrals: NONE,PCP [Primary Care Provider] -
[2018-12-17] MEDS ORDERED: *HR* Labetalol 20 MG/4 ML SYRINGE IVP ONE (15:48)
--- NOTE | 2018-12-17 16:20 | Orthopedic Operative Note ---
Date of procedure: 12/17/18 Procedure: OPERATIVE REPORT SURGEON: Abhijit Contreras MD PREOPERATIVE DIAGNOSIS: Right deep forearm abscess POSTOPERATIVE DIAGNOSIS: Same PROCEDURE: VAC removal from the right forearm with debridement and irrigation and loose wound closure with placement of Isaiah drains ANESTHESIA: Gen. anesthesia SPECIMENS: Wound cultures obtained for aerobic and anaerobic species PREOPERATIVE NOTE The surgical plan was reviewed with the patient. The risks, benefits, alternatives, and potential complications of this procedure were discussed with the patient including injury to veins, arteries, nerves, tendons, ligaments, and bone. Also discussed were the risks of infection, bleeding, pain, blood clots, the possible need for a blood transfusion, the possible need for further procedures, heart attack, stroke, and . Additional risks include the need for further debridements. All of this was explained in simple terms, and the patient verbalized understanding and wished to proceed. Consent was given to proceed with surgery. PROCEDURE: The patient was seen in the preoperative holding area where the identify and the consent were confirmed. The right forearm was marked. Final questions were answered. The patient was brought back to the operating room and placed supine on the operating room table. A huddle was performed with the patient and all vital surgical team members confirming patient identity, the correct procedure, and the correct operative site. Gen. anesthesia was administered. The VAC was removed prior to the prep. The operative extremity was prepped and draped in the usual sterile fashion. A surgical time out was performed immediately preceding the incision with all personnel in the operating room to confirm patient identity, the correct operative site and extremity, correct radiographic studies, availability of appropriate surgical equipment, and agreement on the planned procedure. The tourniquet was inflated without exsanguination. The wound bed was explored and there is no purulence. There was a small amount of necrotic muscle at the brachial radialis which was sharply excised. The muscle bellies of the volar compartment were beefy and red. The lateral antebrachial cutaneous nerve and the radial artery were intact without injury. The wound bed was cultured with swabs. Irrisept was washed through the wound for 60 seconds followed by a bag of Bactisure pulse lavage. Following this, 3 L of saline was flushed through the wound using pulse lavage. The wound was very loosely closed with a few interrupted 4-0 nylon stitches over 2 Ehrhardt drains, one positioned more radially and the other position more ulnarly and proximally. A soft, sterile dressing was applied. The instrument, sponge, and needle counts were correct after wound closure. POST OPERATIVE PLAN: Continue IV antibiotics per the primary team. Daily dressing changes. Pull Ehrhardt drain on Thursday. Follow clinically. Was there an painter assistant present: No Estimated blood loss (cc): 5
[2018-12-17] MEDS: *HR* HYDROmorphone (PF) 1 MG/ML SYRINGE IVP PRN ×5 (16:41→17:18)
--- NOTE | 2018-12-17 17:48 | Anesthesia Evaluation Post Op ---
Date of Encounter: 12/17/18 Time of Encounter: 17:45 - Vital Signs Vital Signs: Vital Signs/O2 Sat/Glucose, Most Current Temp Pulse Resp BP Pulse Ox 12/17/18 17:39 83 18 171/98 97 12/17/18 17:29 82 18 175/101 97 12/17/18 17:19 82 18 180/105 97 12/17/18 17:09 79 18 181/109 98 12/17/18 16:59 79 18 186/111 98 12/17/18 16:49 83 18 183/114 98 12/17/18 16:39 81 18 251/128 99 12/17/18 16:29 75 18 227/116 98 12/17/18 16:19 97.2 F L 87 16 245/121 100 - Lungs Lungs: Clear Ascult./Percussion - Airway Airway: Non-obstructed - Cardiovascular Regular Rate - Mental Status Mental Status: Alert & Oriented, Answers Appropriately - Pain Pain Scale: 0 - Nausea Vomiting Nausea Vomiting: Not Present - Hydration Hydration: Tolerates oral liquids - Discharge PostOp Status: Discharge Patient to home
[2018-12-17 23:38] VITALS: BP 164/68
[2018-12-18] MEDS ORDERED: Aminoglycoside Consult 1 EACH MC ONE (00:59)
--- NOTE | 2018-12-18 01:08 | Event Note ---
Date of Encounter: 12/18/18 Time of Encounter: 00:33 Alerted by patient's nurse LUIS Morris that patient was admitted for right arm abscess and had I&D today. Patient is an IV drug user and uses heroin, ICE, and marijuana. Tox screen on admission was positive for meth and opiates. Patient is currently meeting sepsis criteria d/t WBC of 4.0 (down from 10.2) and HR >90 bpm. Temp at 19:41 was 97.3F. Patient's Hgb has also dropped from 12.1 to 10.8. Patient is hypocalcemic w/calcium of 8.5, liver enzymes are elevated (AST 40 and ALT 55), and CRP elevated at 21. Patient is currently on Levaquin 750 mg IVPB daily, metronidazole 500 mg IVPB every 8 hour, and vancomycin 1250 mg IVPB every 8 hour for infection coverage. Went to see the patient who was already dressed and at the nurse's station ready to leave. I introduced myself and explained the risks outlined above with my direct determination that he should stay. Most importantly, I discussed his current sepsis criteria and how this infection could become systemic and kill him quickly. The patient stated that he understood what I was telling him and was willing to take the risks, even of . I asked the pt. why he was intent on leaving. He stated he had a personal matter that would take a day or two to address and that he would return. I again outlined the gravity of the situation and risk for . Patient again expressed understanding to this and accepted responsibility for these risks. I told the patient to call 911 if he began to feel worse and return to the ED [facility]. He stated that he would. PowerGlide removed from pts. arm, pt. signed AMA paperwork, and left.
[2018-12-21 08:47] LABS: HIV-1 Viral Load Interp NOT DETECTED (Not Detected)
== END 2018-12-18 01:00 | disposition left against medical advice (07) | DRG 710 ==
LOC: 3BNU 09:31 → EMEROOARM 09:31 → SUATTDRO 16:06 → 3BNU 16:19
PROVIDERS: ADMIT Internal Medicine Nephrology; ATTEND Student in an Organized Health Care Education/Training Program

== ENCOUNTER 2020-03-30 16:46 | Inpatient (IN) ==
[2020-03-30] MEDS: EPINEPHrine 5 MG in D5% in Water 250 ML IVC SCH (16:57)
[2020-03-30] MEDS ORDERED: 0.9 % Sodium Chloride 1,000 ML ONE ×3 (16:59→17:31)
[2020-03-30] MEDS ORDERED: Calcium Gluconate 1gm/50mL 2 GM/100 ML BAG IVPB ONE (16:59)
[2020-03-30] MEDS ORDERED: Isovue-370 500 ML BOTTLE IVP ONE ×2 (17:01→19:48)
[2020-03-30] MEDS ORDERED: 0.9 % Sodium Chloride 250 ML ONE ×2 (17:07→20:10)
[2020-03-30] MEDS ORDERED: EPINEPHrine 1 MG in D5% in Water 250 ML IVC SCH (17:10)
[2020-03-30] MEDS ORDERED: Hydrocortisone Sodium Succ 100 MG/2 ML VIAL ONE (17:13)
[2020-03-30] MEDS ORDERED: Vasopressin 40 UNIT in D5% in Water 100 ML IVC SCH (17:18)
[2020-03-30 17:21] LABS: Basophils # 0.1 K/mcL (0.0-0.2); Basophils % 0.3 %; Hemoglobin 14.5 g/dL (12.9-16.9); Immature Granulocytes % 1.5 % (0-4); Lymphocytes # 5.2 K/mcL (0.6-4.6); Lymphocytes % 25.7 %; Mean Corpuscular HGB Conc 32.2 g/dL (31.6-35.5); Mean Corpuscular Hemoglobin 29.5 pg (28.0-33.3); Mean Corpuscular Volume 91.6 fL (83.0-100.0); Mean Platelet Volume 11.7 fL (9.4-12.4); Monocytes # 1.3 K/mcL (0.0-1.3); Monocytes % 6.5 %; Neutrophils # 13.4 K/mcL (1.6-8.9); Nucleated Red Blood Cells 0.1 /100 WBC (0); Platelet Count 105 K/mcL (140-400); Red Blood Count 4.91 M/mcL (4.19-5.50); Red Cell Distribution Width 14.2 % (11.5-14.5); White Blood Count 20.3 K/mcL (4.3-11.1)
[2020-03-30] MEDS ORDERED: *HR* Vasopressin 20 UNIT/ML VIAL ONE (17:25)
[2020-03-30] MEDS ORDERED: D5% in Water 100 ML ONE (17:25)
[2020-03-30] MEDS ORDERED: Cefepime HCl 1,000 MG in Water for inj. (sterile) 10 ML IVP STA (17:28)
[2020-03-30] MEDS ORDERED: 0.9 % Sodium Chloride 1,000 ML IVC ONE ×3 (17:31→17:45)
[2020-03-30] MEDS ORDERED: Calcium Gluconate 1gm/50mL 1 GM/50 ML BAG IVPB ONE ×2 (17:32→18:00)
[2020-03-30] MEDS ORDERED: Hydrocortisone Sodium Succ 100 MG/2 ML VIAL IVP ONE (17:32)
[2020-03-30] MEDS ORDERED: Vancomycin 1,500 MG/265 ML IV.SOLN IVPB STA (17:33)
[2020-03-30 17:41] LABS: Acetaminophen < 10 mcg/mL (10-20); Alanine Aminotransferase 47 Units/L (7-52); Albumin 3.3 g/dL (3.5-5.7); Albumin/Globulin Ratio 0.8 (1.1-2.2); Alkaline Phosphatase 100 Units/L (34-104); Aspartate Amino Transferase 91 Units/L (13-39); BUN/Creatinine Ratio 21 (6-26); Blood Urea Nitrogen 53 mg/dL (6-20); Calcium 9.5 mg/dL (8.6-10.3); Carbon Dioxide 15 mEq/L (23-29); Chloride 92 mEq/L (98-107); Ethanol < 10 mg/dL (Less than 10); Globulin 4.1 g/dL (2.4-3.5); Glucose 80 mg/dL (70-105); Osmolality,Calculated 285 (280-300); Potassium 3.7 mEq/L (3.5-5.1); Salicylate < 2.5 mg/dL (15.0-30.0); Sodium 131 mEq/L (136-145); Total Protein 7.4 g/dL (6.4-8.9); Troponin I 0.09 ng/mL (< 0.04); eGFR For African Americans 33 (> 60); eGFR For Non-African Americans 27 (> 60)
[2020-03-30 17:52] LABS: ABG Base Excess -20 mEq/L (-2 to 3); ABG HCO3 13 mEq/L (21-27); ABG Oxygen Saturation 100 % (95-98); ABG PCO2 73 mmHg (35-45); ABG PH 6.87 pH Units (7.32-7.45); ABG PO2 414 mmHg (85-104); ABG TCO2 16 mEq/L (20-26); Blood Gas Modality ASSIST CONTROL; Blood Gas VT 450 cc
[2020-03-30 17:53] LABS: Platelet Estimate Decreased (Normal)
[2020-03-30] MEDS ORDERED: D5% in Water 250 ML ONE ×2 (17:53→18:50)
[2020-03-30] MEDS ORDERED: Acetaminophen 650 MG RECTAL SUPP RC ONE (17:59)
[2020-03-30] MEDS ORDERED: EPINEPHrine 1 MG/ML VIAL ONE (18:50)
[2020-03-30] MEDS: Norepinephrine 4 MG/254 ML IV.SOLN IVC SCH (19:14)
[2020-03-30] MEDS ORDERED: *HR* Norepinephrine 4 MG/4 ML VIAL IVC ONE (20:10)
[2020-03-30] MEDS ORDERED: Naloxone 0.4 MG/ML INJ IVP PRN (21:20)
[2020-03-30] MEDS ORDERED: Acetaminophen 650 MG RECTAL SUPP RC PRN (21:25)
[2020-03-30] MEDS ORDERED: levoFLOXacin 750 MG TABLET PO SCH (21:45)
[2020-03-30] MEDS ORDERED: *HR* Heparin 5,000 UNIT/ML VIAL IVP ONE (21:53)
[2020-03-30] MEDS ORDERED: *HR* Heparin 5,000 UNIT/ML VIAL IVP PRN ×2 (21:53)
[2020-03-30] MEDS ORDERED: Vancomycin (wt based) 1,000 MG VIAL IVPB SCH (22:00)
[2020-03-30] MEDS ORDERED: Heparin 25,000UNIT/250ML 1/2NS 25,000 UNIT/250 ML IV.SOLN IVC SCH (22:00)
[2020-03-30] MEDS ORDERED: Ringers Solution, Lactated 1,000 ML IVC SCH (22:00)
[2020-03-30 22:14] LABS: Fibrinogen 138 mg/dL (169-393)
[2020-03-30 22:15] LABS: INR 1.8; Prothrombin Time 20.8 Seconds (9.4-12.1)
[2020-03-30 22:15] LABS: ABG Base Excess -20 mEq/L (-2 to 3); ABG HCO3 13 mEq/L (21-27); ABG Oxygen Saturation 95 % (95-98); ABG PCO2 63 mmHg (35-45); ABG PH 6.93 pH Units (7.32-7.45); ABG PO2 123 mmHg (85-104); ABG TCO2 15 mEq/L (20-26); Blood Gas Modality ASSIST CONTROL; Blood Gas VT 500 cc
[2020-03-30] MEDS ORDERED: levoFLOXacin 750 MG/150 ML 750 MG/150 ML BAG IVPB SCH (22:15)
[2020-03-30 22:17] LABS: Heparin anti-factor XA UFH < 0.04 IU/mL (0.30-0.70)
[2020-03-30 22:59] LABS: C-Reactive Protein 129 mg/L (Less than 10); Lactate Dehydrogenase > 3600 Units/L (140-271)
[2020-03-30 23:03] LABS: D-Dimer > 128000 ng/mLFEU (0-500)
[2020-03-31] MEDS ORDERED: MethylPREDNISolone 40 MG/ML VIAL IVP SCH
[2020-03-31] MEDS: Ipratropium 1 PUFF INHALER IH SCH ×2 (00:15→04:58)
[2020-03-31] MEDS: Norepinephrine 4 MG/254 ML IV.SOLN IVC SCH ×3 (00:15→03:03)
[2020-03-31] MEDS ORDERED: 0.9 % Sodium Chloride 1,000 ML IVC ONE (00:40)
[2020-03-31] MEDS ORDERED: 0.9 % Sodium Chloride 1,000 ML ONE (00:47)
[2020-03-31 00:52] LABS: Troponin I 0.22 ng/mL (< 0.04)
[2020-03-31 00:53] LABS: Hematocrit 43.6 % (37.5-50.1); Hemoglobin 13.2 g/dL (12.9-16.9)
[2020-03-31] MEDS ORDERED: *HR* Dextrose 50 % in Water (Vial) 50 ML VIAL ONE (01:01)
[2020-03-31 01:12] LABS: ABG Base Excess -24 mEq/L (-2 to 3); ABG HCO3 10 mEq/L (21-27); ABG Oxygen Saturation 90 % (95-98); ABG PCO2 60 mmHg (35-45); ABG PH 6.84 pH Units (7.32-7.45); ABG PO2 104 mmHg (85-104); ABG TCO2 12 mEq/L (20-26); Blood Gas Modality AF; Blood Gas VT 500 cc
[2020-03-31] MEDS ORDERED: *HR* Dextrose 50 % in Water (Vial) 50 ML VIAL IVP ONE (01:32)
[2020-03-31] MEDS: EPINEPHrine 5 MG in D5% in Water 250 ML IVC SCH ×2 (01:41→04:35)
[2020-03-31] MEDS ORDERED: Aztreonam 1,000 MG in Water for inj. (sterile) 10 ML IVP SCH ×2 (03:00)
[2020-03-31] MEDS ORDERED: Norepinephrine 8 MG in 0.9 % Sodium Chloride 250 ML IVC SCH (03:15)
[2020-03-31 03:45] LABS: VBG Ionized Calcium 0.76 mmol/L (1.15-1.35)
[2020-03-31] MEDS ORDERED: Calcium Gluconate 1gm/50mL 1 GM/50 ML BAG IVPB PRN (03:59)
[2020-03-31] MEDS ORDERED: Potassium Phosphate 44 MEQ in 0.9 % Sodium Chloride 250 ML IVPB PRN (03:59)
[2020-03-31] MEDS ORDERED: Potassium Chloride 40 MEQ/200 ML BAG IVPB PRN (03:59)
[2020-03-31 04:31] LABS: Alanine Aminotransferase 1670 Units/L (7-52); Albumin 2.5 g/dL (3.5-5.7); Albumin/Globulin Ratio 0.8 (1.1-2.2); Alkaline Phosphatase 532 Units/L (34-104); Aspartate Amino Transferase > 3000 Units/L (13-39); BUN/Creatinine Ratio 18 (6-26); Bilirubin,Total 3.4 mg/dL (0.3-1.0); Blood Urea Nitrogen 58 mg/dL (6-20); Calcium 6.3 mg/dL (8.6-10.3); Carbon Dioxide 12 mEq/L (23-29); Chloride 96 mEq/L (98-107); Globulin 3.1 g/dL (2.4-3.5); Glucose 65 mg/dL (70-105); Magnesium 3.7 mg/dL (1.6-2.6); Osmolality,Calculated 286 (280-300); Phosphorous 17.2 mg/dL (2.7-4.5); Potassium 5.8 mEq/L (3.5-5.1); Sodium 131 mEq/L (136-145); Total Protein 5.6 g/dL (6.4-8.9); eGFR For African Americans 25 (> 60); eGFR For Non-African Americans 21 (> 60)
[2020-03-31 04:32] LABS: Acinetobacter baumannii by PCR Not Detected (Not Detect); Enterobacter cloacae Cmplx PCR Not Detected (Not Detect); Enterobacteriaceae by PCR Not Detected (Not Detect); Enterococcus by PCR Not Detected (Not Detect); Escherichia coli by PCR Not Detected (Not Detect); Klebsiella oxytoca by PCR Not Detected (Not Detect); Klebsiella pneumoniae by PCR Not Detected (Not Detect); Proteus by PCR Not Detected (Not Detect); Serratia marcescens by PCR Not Detected (Not Detect); Staphylococcus aureus by PCR Not Detected (Not Detect); Staphylococcus by PCR Not Detected (Not Detect); Streptococcus agalactiae(B)PCR Not Detected (Not Detect); Streptococcus by PCR Not Detected (Not Detect); Streptococcus pneumoniae PCR Not Detected (Not Detect); Streptococcus pyogenes (A) PCR DETECTED (Not Detect)
[2020-03-31 04:33] LABS: Candida albicans by PCR Not Detected (Not Detect); Candida glabrata by PCR Not Detected (Not Detect); Candida krusei by PCR Not Detected (Not Detect); Candida parapsilosis by PCR Not Detected (Not Detect); Candida tropicalis by PCR Not Detected (Not Detect); Pseudomonas aeruginosa by PCR Not Detected (Not Detect)
[2020-03-31 04:48] LABS: Eosinophils % 0.2 %; Mean Corpuscular Hemoglobin 29.9 pg (28.0-33.3); Monocytes % 4.6 %; Nucleated Red Blood Cells 0.6 /100 WBC (0); Red Cell Distribution Width 15.1 % (11.5-14.5)
[2020-03-31 04:50] LABS: Basophils % 0.8 %; Eosinophils # 0.1 K/mcL (0.0-0.6); Hematocrit 41.9 % (37.5-50.1); Hemoglobin 12.5 g/dL (12.9-16.9); Immature Granulocytes % 4.9 % (0-4); Immature Platelets 8.6 % (1.1-6.1); Lymphocytes # 4.7 K/mcL (0.6-4.6); Lymphocytes % 15.7 %; Mean Corpuscular HGB Conc 29.8 g/dL (31.6-35.5); Mean Corpuscular Volume 100.2 fL (83.0-100.0); Mean Platelet Volume 11.7 fL (9.4-12.4); Monocytes # 1.4 K/mcL (0.0-1.3); Red Blood Count 4.18 M/mcL (4.19-5.50); Segmented Neutrophils % 73.8 %; White Blood Count 29.8 K/mcL (4.3-11.1)
[2020-03-31 04:56] LABS: Heparin anti-factor XA UFH 0.12 IU/mL (0.30-0.70)
[2020-03-31 05:16] LABS: Basophils # 0.2 K/mcL (0.0-0.2)
[2020-03-31 05:28] VITALS: BP 77/49
[2020-03-31 05:55] LABS: Platelet Count 21 K/mcL (140-400)
[2020-03-31 05:57] LABS: INR > 29.6; Prothrombin Time > 320.0 Seconds (9.4-12.1)
[2020-03-31 05:58] LABS: Activated Partial Thrombo Time > 360.0 Seconds (26.0-36.0)
[2020-03-31] MEDS ORDERED: Pantoprazole 40 MG VIAL IVP SCH (06:30)
[2020-03-31] MEDS ORDERED: Dexamethasone 4 MG/ML VIAL IVP SCH (09:00)
[2020-03-31] MEDS ORDERED: Vancomycin 1,250 MG/262.5 ML IV.SOLN IVPB SCH (18:00)
== END 2020-03-31 05:00 | disposition expired | DRG 720 ==
LOC: EMEROOARM 16:46 → ICNU 20:47 → SUATTDRO 20:47 → 2NENU 22:08
PROVIDERS: ADMIT Family Medicine; ATTEND Family Medicine